=== PATIENT | female | born 1975 | race Caucasian/White ===

== ENCOUNTER 2019-07-03 10:49 | Outpatient (CLI) | payer MEDICARE, MEDICAID, SELFPAY ==
[2019-07-03 11:41] LABS: Basophils % 0.3 %; Eosinophils # 0.4 10^3/uL (0.0-0.8); Eosinophils % 4.8 %; Hematocrit 32.8 % (37.0-47.0); Hemoglobin 9.7 g/dL (11.5-15.3); Lymphocytes # 2.1 10^3/uL (0.8-4.8); Lymphocytes % 23.8 %; Mean Corpuscular HGB Conc 29.6 g/dL (30.0-36.0); Mean Corpuscular Hemoglobin 25.5 pg (28.0-34.0); Mean Corpuscular Volume 86.3 fL (81-99); Mean Platelet Volume 9.7 fL (7.4-10.4); Monocytes # 0.6 10^3/uL (0.2-0.9); Monocytes % 6.4 %; Neutrophils # 5.5 10^3/uL (1.8-7.7); Neutrophils % 64.1 %; Nucleated Red Blood Cells % 0 %; Platelet Count 298 10^3/cmm (130-400); White Blood Count 8.6 10^3/uL (4.0-10.0)
[2019-07-03 12:06] LABS: Estmated Average Glucose 151; Hemoglobin A1C 6.9 % (4.0-6.0)
[2019-07-03 12:51] LABS: Calcium 8.9 mg/dL (8.5-10.5); Parathyroid Hormone 115.5 pg/mL (15-65)
[2019-07-03 13:01] LABS: Folate Level 15.4 ng/mL (4.8-37.3)
[2019-07-03 13:05] LABS: Alanine Aminotransferase 62 U/L (0-33); Albumin Level 3.2 g/dL (3.5-5.2); Alkaline Phosphatase 140 IU/L (35-105); Aspartate Amino Transferase 75 U/L (0-32); Blood Urea Nitrogen 10 mg/dL (6-20); Calcium 8.8 mg/dL (8.5-10.5); Carbon Dioxide 23 mmol/L (22-29); Chloride 99 mmol/L (98-107); Chol HDL Ratio 3.41 mg/dL (0.0-4.40); Cholesterol 198 mg/dL (0-200); Globulin 3.1 g/dL (1.3-4.6); Glucose 124 mg/dL (65-115); HDL Cholesterol 58 mg/dL (60-100); Iron 30 ug/dL (37-145); LDL Cholesterol Calculated 79 mg/dL (50-129); LDL HDL Ratio 1.36 RATIO (0.00-3.22); Magnesium 1.8 mg/dL (1.7-2.3); Percent Saturation 9.4 % (20-50); Sodium 135 mmol/L (136-145); Thyroid Stimulating Hormone 1.88 uIU/mL (0.27-4.20); Total Bilirubin 0.2 mg/dL (0.15-1.2); Total Iron Binding Capacity 319 mcg/dl; Total Protein 6.3 g/dL (6.6-8.7); Triglycerides 304 mg/dL (0-150); Unsaturated Iron Binding 289 ug/dL (112-347); Vitamin B12 378 pg/mL (232-1245)
== END 2019-07-03 10:50 | disposition home or self-care (01) ==
PROVIDERS: Family Provider Nurse Practitioner; PCP Nurse Practitioner; Visit Provider Surgery
DX: E66.9 Obesity, unspecified (principal)
CPT/HCPCS: 36415; 80053; 80061; 82310; 82607; 82746; 83036; 83540; 83550; 83735; 83970; 84100; 84443; 85025

== ENCOUNTER → 2019-08-01 05:38 | Day surgery (SDC) | payer MEDICARE, MEDICAID, SELFPAY ==
[2019-07-28 10:33] VITALS: BMI 42.9
--- NOTE | 2019-07-28 10:51 | ANES.PREANE2 ---
Pre-Anesthetic Assessment Pre-Anesthetic Assessment: Height/Weight: Height 1.63 m Weight 113.398 kg Preop Diagnosis: Morbid obesity Proposed Procedure: Operation Date: 08/01/19 07:00 Proposed Procedures p Laparoscopic Gastric Sleeve w/ EGD 12738 [id number] E66.9(Not Applicable) - Sulaiman Sarabia MD s EGD(Not Applicable) - Sulaiman Sarabia MD Familial anesthetic complications: none Social: Social History: No alcohol and No tobacco Exam: Pre-Anes Outpt Exam: alert, oriented x 3, clear to auscultation bilaterally and regular rate & rhythm Airway: Cervical ROM: WNL MP: 2 Dentition: Full Pulmonary: Pulmonary: None reported CV/HEM: CV/HEM: Anemia and HTN : : None reported Hepatic: Hepatic: None reported GI: GI: GERD Metabolic: Metabolic: Morbid obesity Musc/skel: Musc/skel: Fibromyalgia and Lower Back Pain Neuropsych: Neuropsych: Seizure (2016 last one - not on antiseizure meds (due to bp drop)) Anesthetic Plan: ASA status: 3 Anesthesia: General Risk of > 500 ml blood loss (7ml/kg in children): No PFSH Anesthesia PFSH: Social History Smoking and tobacco status: never smoked Alcohol intake: former Lives independently: Yes Household members: children Current occupational status: disabled History of recent travel: No Data Anesthesia Cardiac Studies: No Data to Display
[2019-07-28 11:42] LABS: Basophils % 0.2 %; Eosinophils # 0.1 10^3/uL (0.0-0.8); Eosinophils % 1.2 %; Hematocrit 38.9 % (37.0-47.0); Hemoglobin 12.2 g/dL (11.5-15.3); Lymphocytes # 2.2 10^3/uL (0.8-4.8); Lymphocytes % 21.5 %; Mean Corpuscular HGB Conc 31.4 g/dL (30.0-36.0); Mean Corpuscular Hemoglobin 26.3 pg (28.0-34.0); Mean Platelet Volume 10.1 fL (7.4-10.4); Monocytes # 0.5 10^3/uL (0.2-0.9); Monocytes % 4.7 %; Neutrophils # 7.5 10^3/uL (1.8-7.7); Neutrophils % 71.8 %; Nucleated Red Blood Cells % 0 %; Platelet Count 366 10^3/cmm (130-400); Red Blood Count 4.63 10^6/uL (4.1-5.3); Red Cell Distribution Width 14.6 % (12.1-15.1); White Blood Count 10.4 10^3/uL (4.0-10.0)
[2019-07-28 11:43] LABS: Anion Gap 16.8 (5-19); Blood Urea Nitrogen 14 mg/dL (6-20); Calcium 9.2 mg/dL (8.5-10.5); Carbon Dioxide 25 mmol/L (22-29); Chloride 98 mmol/L (98-107); Glomerular Filtration Rate 77.9 mL/min (90-130); Glucose 122 mg/dL (65-115); Osmolality Calculated 280 mOsm/kg (285-295); Potassium 3.8 mmol/L (3.5-5.1); Sodium 136 mmol/L (136-145)
[2019-07-28 11:44] LABS: Iron 46 ug/dL (37-145)
[2019-08-01 06:01] VITALS: BP 103/68; PULSE 76; RESP 18; TEMP 36.6; O2SAT 94
[2019-08-01] MEDS: sodium chloride 0.9% 1,000 ML 999 ML IV (06:11)
[2019-08-01] MEDS: ondansetron 2 mg/ML SDV 2 mL 4 MG IVP (06:16)
[2019-08-01] MEDS: heparin 5,000 unit/mL INJ 1 mL 5000 UNIT INJECTION (06:18)
[2019-08-01] MEDS: scopolamine 1.5 Patch 1 PATCH TRANSDERMA (06:18)
--- NOTE | 2019-08-01 06:41 | W.PM.OPSUD ---
Surgery/Procedure H&P Update DATE OF PROCEDURE: August 01, 2019 DATE H&P PERFORMED: 07/03/19 H&P UPDATE INFORMATION: I have reviewed H&P completed within last 30 days, I have examined patient prior to procedure and Changes to prior documentation as noted here (Unfortunately patient comes today and she admits that she lost 2 pounds only being on liquid protein diet and my impression that she was on liquid protein diet for 2-weeks, apparently she admits that she has been receiving the liquid protein diet only for the past 3 days and that the main purpose to downsize the volume of the liver to 30 or 40% prior to surgery to facilitate her procedure and make it safer for the patient) CHANGES TO PREVIOUS DOCUMENTATION: At this point I will have to abort the procedure and I will continue have my reconciliation coordinator counseling the patient, make sure that the patient is compliant with the liquid protein diet 10 days to start 2 weeks prior to surgery. Discussed in depth and in length and more than 50% of the encounter was spent counseling the patient in the presence of my nursing director of staff development Gricel We will continue coordinating with patient's primary care provider and make sure that the patient continue to have her obesity management journey safe and successful. PREOP DIAGNOSIS: Morbid obesity PLANNED PROCEDURE: Operation Date: 08/01/19 07:00 Proposed Procedures p Laparoscopic Gastric Sleeve w/ EGD [id number] E66.9(Not Applicable) - Sulaiman Sarabia MD s EGD(Not Applicable) - Sulaiman Sarabia MD
[2019-08-01 07:29] LABS: Glucose Point of Care 145 mg/dL (70-110)
--- NOTE | 2019-08-01 10:37 | SUR.PREOP ---
0700 PT'S IV D/VINH ALL INTACT AND WAITING FOR BOYFRIEND TO BE PICKED UP 0725 D/C PER ER ENTRANCE VIA W/C IN STABLE CONDITION
== END ==
PROVIDERS: Internal Medicine; Family Provider Nurse Practitioner; PCP Nurse Practitioner; Visit Provider Surgery
PROC: 0DB64Z3 Excision of Stomach, Percutaneous Endoscopic Approach, Vertical (ICD-10-PCS; CPT 43775; principal; 2019-08-01 07:00)
PROC: 0DJ08ZZ Inspection of Upper Intestinal Tract, Via Natural or Artificial Opening Endoscopic (ICD-10-PCS; CPT 43235; 2019-08-01 07:00)
DX: Z01.818 Encounter for other preprocedural examination (principal); E66.9 Obesity, unspecified; Z68.41 Body mass index [BMI] 40.0-44.9, adult; D64.9 Anemia, unspecified
CPT/HCPCS: 12345; 36415; 36416; 80048; 82962; 83540; 85025; 96365; 96372; 96374; J0131; J1644; J2405; J7030

== ENCOUNTER 2019-08-04 14:54 | Inpatient (IN) | payer MEDICARE, MEDICAID, SELFPAY ==
[2019-08-04] VITALS (40 sets, daily range): BP systolic 142–176; BP diastolic 11–106; PULSE 66–104; RESP 15–30; TEMP 36.5–36.8; O2SAT 95–98; BMI 42.7
--- NOTE | 2019-08-04 15:12 | XR_ITS ---
WS: [id number] XR chest 1V portable [id number] REASON FOR EXAM: cp FINDINGS: Borderline cardiomegaly changes. Lung little are clear there is no pneumonia, pleural effus ion, pulmonary edema, mass effect, or pneumothorax. The hilum and apices normal. No osseous abnormalities. XR/XR chest 1V portable [id number] IMPRESSION: Borderline cardiomegaly.
--- NOTE | 2019-08-04 15:12 | CT_ITS ---
WS: [id number] CT HEAD TECHNIQUE: Noncontrast CT of the head obtained from the skullbase to the vertex. CLINICAL INFORMATION: ams COMPARISON: March 04, 2019 DLP: 804.[address] scans at [facility] use at least one of these dose optimization techniques: automat ed exposure control; mA and/or kV adjustment per patient size (includes targeted exams where dose is matched to clinical indication); or iterative reconstruction. FINDINGS: No evidence of intracranial hemorrhage or mass effect. Ventricular system and basal cisterns are joseph nt. No extra-axial fluid collections. No evidence of mass or mass effect. Normal fuller-white different iation. Paranasal sinuses and mastoid air cells are well aerated. .Normal visualized soft tissues. CT/CT head wo con* [id number] IMPRESSION: 1. No evidence of intracranial hemorrhage or mass effect. 2. No acute intracranial findings.
--- NOTE | 2019-08-04 15:20 | W.ED.AMS ---
HPI - Altered Mental Status General: Chief Complaint: Altered Mental Status Stated Complaint: AMS Time Seen by Provider: 08/04/19 15:07 Source: patient Mode of arrival: ambulatory Limitations: no limitations History of Present Illness: HPI narrative: 43-year-old female who states that she has been having chronic weakness over the last month or 2. Patient also states she has had headaches along with joint pain. She does have chronic pain and is on multiple pain meds. She states that the weakness seems to come and go and has periods where she has difficulty walking and difficulty holding things. Patient denies any worsening improving factors. She denies any fevers. She denies any cough. She denies any vomiting or diarrhea. Associated symptoms: Deny depression Review of Systems Const: Denies: fever, chills, body aches or change in appetite Eyes: Reports: blurry vision; Denies: eye discomfort ENMT: Denies: throat pain or dental pain Card: Denies: chest pain Resp: Denies: shortness of breath GI: Denies: abdominal pain, nausea, vomiting or diarrhea : Denies: painful urination Musc: Reports: joint pain; Denies: neck pain or back pain Skin/Breast: Denies: rash Neuro: Reports: headache and weakness in extremities Psych: Denies: depression Bonifacio/Lymph: Denies: easy bruising All/Imm: Denies: hives PFSH ED PFSH: Medical History (Updated 08/07/19 @ 08:17 by Michell Oates MD) Bipolar disorder Bipolar disorder, current episode depressed, moderate Generalized anxiety disorder GERD (gastroesophageal reflux disease) Hypertension Migraine headache Morbid obesity -BMI-43 kg/m2 -pending gastric sleeve surgery, to be done by Dr. Rodriguez PTSD (post-traumatic stress disorder) Sleep apnea Surgical History (Updated 08/04/19 @ 18:17 by Michell Oates MD) History of cholecystectomy in 2013 History of colonoscopy History of esophagogastroduodenoscopy (EGD) History of hysterectomy 2012, done due to endometriosis Family History Mother Anesthesia complication Denies family history of Bleeding disorder Social History Smoking and tobacco status: never smoked Alcohol intake: former Lives independently: Yes Household members: children Current occupational status: disabled History of recent travel: No Physical Exam Const: COMMON NORMALS: no apparent distress, oriented x3 and healthy appearing HENMT: COMMON NORMALS: normocephalic and head/scalp atraumatic HEAD & SCALP: normocephalic and atraumatic Eye: COMMON NORMALS: PERRL and EOMs intact bilaterally PUPIL: Yes PERRL Neck/C-Spine: COMMON NORMALS: full ROM and supple Chest: COMMONS NORMALS: inspection of chest normal and palpation of chest normal Resp: COMMON NORMALS: normal respiratory effort, no retractions, no use of accessory muscles and clear to auscultation bilaterally AUSCULTATION: clear to auscultation bilaterally Cardio: COMMON NORMALS: regular rate, regular rhythm and no murmurs RATE: regular rate RHYTHM: regular rhythm GI: COMMON NORMALS: normal to inspection, nondistended, normoactive bowel sounds, soft to palpation, non-tender and no masses PALPATION: Yes soft Extremity: COMMON NORMALS: normal to inspection and full ROM Neuro: COMMON NORMALS: oriented x3, moves all extremities and no focal motor deficits Psych: COMMON NORMALS: mental status grossly normal, thought process normal and cooperative THOUGHT PROCESS: normal thought process Skin: COMMON NORMALS: no rashes or lesions noted and no wounds GENERAL SKIN EXAM: no rashes or lesions noted Course Vital Signs: Vital signs: Vital Signs Temperature 98.0 F 08/07/19 13:38 Pulse Rate 89 08/07/19 13:38 Respiratory Rate 16 08/07/19 13:38 Blood Pressure 127/83 08/07/19 13:38 Pulse Oximetry 93 08/07/19 13:38 MDM - Altered Mental Status MDM Narrative: Medical decision making narrative: Patient presents here with difficulty walking and weakness along with high blood pressure. Questions that she has been taking too many of her medicines per family. Patient's lab work and CT head here is normal. Did try to get her to walk again and she was unable to. Spoke to hospitalist and will admit due to her difficulty walking and high blood pressure. Lab Data: Labs: Lab Results 08/04/19 08/04/19 08/04/19 Range/Units 15:17 15:17 15:17 WBC 7.8 (4.0-10.0) 10^3/ uL RBC 3.98 L (4.1-5.3) 10^6/u L Hgb 10.4 L (11.5-15.3) g/dL Hct 34.2 L (37.0-47.0) % MCV 85.9 (81-99) fL MCH 26.1 L (28.0-34.0) pg MCHC 30.4 (30.0-36.0) g/dL RDW 14.3 (12.1-15.1) % Plt Count 270 (130-400) 10^3/c mm MPV 10.6 H (7.4-10.4) fL Neut % (Auto) 68.7 % Lymph % (Auto) 21.7 % Wharton % (Auto) 5.9 % Eos % (Auto) 3.0 % Baso % (Auto) 0.1 % Neut # (Auto) 5.3 (1.8-7.7) 10^3/u L Lymph # (Auto) 1.7 (0.8-4.8) 10^3/u L Wharton # (Auto) 0.5 (0.2-0.9) 10^3/u L Eos # (Auto) 0.2 (0.0-0.8) 10^3/u L Baso # (Auto) 0.0 (0.0-0.1) 10^3/u L Nucleated RBC % (a uto) 0 % Nucleated RBCs # 0.0 /100WBC Sodium 138 (136-145) mmol/L Potassium 3.8 (3.5-5.1) mmol/L Chloride 100 (98-107) mmol/L Carbon Dioxide 30 H (22-29) mmol/L Anion Gap 11.8 (5-19) BUN 10 (6-20) mg/dL Creatinine 1.0 H (0.5-0.9) mg/dL GFR Calculation 60.2 L (90-130) mL/min Glucose 222 H (65-115) mg/dL Calculated Osmolal ity 289 (285-295) mOsm/k g Calcium 9.1 (8.5-10.5) mg/dL Magnesium 2.0 (1.7-2.3) mg/dL Total Bilirubin 0.2 (0.15-1.2) mg/dL AST 20 (0-32) U/L ALT 20 (0-33) U/L Alkaline Phosphata se 131 H (35-105) IU/L Total Protein 6.8 (6.6-8.7) g/dL Albumin 3.4 L (3.5-5.2) g/dL Globulin 3.4 (1.3-4.6) g/dL TSH 1.08 (0.27-4.20) uIU/ mL HCG, Qual (Negative) Urine Color (Yellow) Urine Appearance (CLEAR) Urine pH (5-7) Ur Specific Gravit y (1.005-1.030) Urine Protein (Negative) Urine Glucose (UA) (Normal) Urine Ketones (Negative) Urine Blood (Negative) Urine Nitrate (Negative) Urine Bilirubin (NEGATIVE) Urine Urobilinogen (Negative) mg/dL Ur Leukocyte Tiffany ase (Negative) Urine Opiates Scre en (Negative) ng/mL Acetaminophen < 5.0 L (10-30) ug/mL Ur Barbiturates Sc reen (Negative) ng/mL Ur Phencyclidine S crn (Negative) ng/mL Ur Amphetamines Sc reen (Negative) ng/mL U Benzodiazepines Scrn (Negative) ng/mL Urine Cocaine Scre en (Negative) ng/mL U Marijuana (THC) Screen (Negative) ng/mL 08/04/19 08/04/19 08/04/19 Range/Units 15:47 15:47 15:47 WBC (4.0-10.0) 10^3/ uL RBC (4.1-5.3) 10^6/u L Hgb (11.5-15.3) g/dL Hct (37.0-47.0) % MCV (81-99) fL MCH (28.0-34.0) pg MCHC (30.0-36.0) g/dL RDW (12.1-15.1) % Plt Count (130-400) 10^3/c mm MPV (7.4-10.4) fL Neut % (Auto) % Lymph % (Auto) % Wharton % (Auto) % Eos % (Auto) % Baso % (Auto) % Neut # (Auto) (1.8-7.7) 10^3/u L Lymph # (Auto) (0.8-4.8) 10^3/u L Wharton # (Auto) (0.2-0.9) 10^3/u L Eos # (Auto) (0.0-0.8) 10^3/u L Baso # (Auto) (0.0-0.1) 10^3/u L Nucleated RBC % (a uto) % Nucleated RBCs # /100WBC Sodium (136-145) mmol/L Potassium (3.5-5.1) mmol/L Chloride (98-107) mmol/L Carbon Dioxide (22-29) mmol/L Anion Gap (5-19) BUN (6-20) mg/dL Creatinine (0.5-0.9) mg/dL GFR Calculation (90-130) mL/min Glucose (65-115) mg/dL Calculated Osmolal ity (285-295) mOsm/k g Calcium (8.5-10.5) mg/dL Magnesium (1.7-2.3) mg/dL Total Bilirubin (0.15-1.2) mg/dL AST (0-32) U/L ALT (0-33) U/L Alkaline Phosphata se (35-105) IU/L Total Protein (6.6-8.7) g/dL Albumin (3.5-5.2) g/dL Globulin (1.3-4.6) g/dL TSH (0.27-4.20) uIU/ mL HCG, Qual Negative (Negative) Urine Color Yellow (Yellow) Urine Appearance Clear (CLEAR) Urine pH 5 (5-7) Ur Specific Gravit y 1.010 (1.005-1.030) Urine Protein Neg (Negative) Urine Glucose (UA) Trace H (Normal) Urine Ketones Negative (Negative) Urine Blood Neg (Negative) Urine Nitrate Negative (Negative) Urine Bilirubin Neg (NEGATIVE) Urine Urobilinogen Norm (Negative) mg/dL Ur Leukocyte Tiffany ase Negative (Negative) Urine Opiates Scre en Negative (Negative) ng/mL Acetaminophen (10-30) ug/mL Ur Barbiturates Sc reen Negative (Negative) ng/mL Ur Phencyclidine S crn Negative (Negative) ng/mL Ur Amphetamines Sc reen Negative (Negative) ng/mL U Benzodiazepines Scrn Positive H (Negative) ng/mL Urine Cocaine Scre en Negative (Negative) ng/mL U Marijuana (THC) Screen Negative (Negative) ng/mL Imaging Data^: CT Head: Attestation: I personally reviewed and interpreted this imaging study as follows: Radiologist's impression: [facility] [address] [place] [address] CT Scan Report Signed Patient: Abena Galan Unit #: [id number] : 1975 Age/Sex: 43 / F ADM Date: 08/04/19 Loc: ER Room/Bed: Attending Dr: Ordering Provider/Ordering MD: Stephany Herrera MD Date of Service: 08/04/19 Procedure(s): CT head wo con* [id number] Accession Number(s): [id number] Report Number: [id number] WS: [id number] CT HEAD TECHNIQUE: Noncontrast CT of the head obtained from the skullbase to the vertex. CLINICAL INFORMATION: ams COMPARISON: March 04, 2019 DLP: 804.[address] scans at [facility] use at least one of these dose optimization techniques: automated exposure control; mA and/or kV adjustment per patient size (includes targeted exams where dose is matched to clinical indication); or iterative reconstruction. FINDINGS: No evidence of intracranial hemorrhage or mass effect. Ventricular system and basal cisterns are patent. No extra-axial fluid collections. No evidence of mass or mass effect. Normal fuller-white differentiation. Paranasal sinuses and mastoid air cells are well aerated. .Normal visualized soft tissues. CT/CT head wo con* [id number] IMPRESSION: 1. No evidence of intracranial hemorrhage or mass effect. 2. No acute intracranial findings. CXR: Rad[facility]'s [facility] [place] [address] XRay Report Signed Patient: Abena Galan Unit #: [id number] : 1975 Age/Sex: 43 / F ADM Date: 08/04/19 Loc: ER Room/Bed: Attending Dr: Ordering Provider/Ordering MD: Stephany Herrera MD Date of Service: 08/04/19 Procedure(s): XR chest 1V portable [id number] Accession Number(s): [id number] Report Number: [id number] WS: [id number] XR chest 1V portable [id number] REASON FOR EXAM: cp FINDINGS: Borderline cardiomegaly changes. Lung little are clear there is no pneumonia, pleural effusion, pulmonary edema, mass effect, or pneumothorax. The hilum and apices normal. No osseous abnormalities. XR/XR chest 1V portable [id number] IMPRESSION: Borderline cardiomegaly. EKG Data^: EKG 1: Attestation: I personally reviewed and interpreted this EKG as follows: EKG interpretation date: 08/04/19 EKG interpretation time: 17:13 Interpretation: nsr hr [address] or t wave abnormalities qrs 85 qtc 424 Discharge Plan Discharge Patient Disposition: Admitted As Inpatient Admit Provider: Michell Oates Clinical Impression: Altered mental status Qualifiers: Altered mental status type: unspecified Qualified Code(s): R41.82 - Altered mental status, unspecified Hypertension Qualifiers: Hypertension type: essential hypertension Qualified Code(s): I10 - Essential (primary) hypertension Condition: Stable Discharge Orders: Discharge Order (Routine); Ordered 08/07/19 Ordered By: Michell Oates Referrals: Lianet De Jesus DPM [Primary Care Provider] - 4-7 days (You have an follow-up appointment with Lianet De Jesus on August 10 at :20p.m. If, you have any questions or need to reschedule. Please, call ) Discharge Diet: Advance as tolerated Discharge Activity: Resume usual activity and As per PT/OT instructions Patient Instructions: Ondansetron (By mouth), Hypertension (DC), Altered Mental Status (GEN), Weakness (Generalized) Additional Instructions: -continue to consistently use walker and assistance with activity to prevent falls. -please seek medical attention immediately if symptoms worsen or persist. Discharge Date/Time: 08/04/19 18:54 Coding Level of Care Code ED Manager Of Digital for Chg Fwd Exam Comprehensive
[2019-08-04 15:29] LABS: Basophils % 0.1 %; Eosinophils # 0.2 10^3/uL (0.0-0.8); Hematocrit 34.2 % (37.0-47.0); Hemoglobin 10.4 g/dL (11.5-15.3); Lymphocytes # 1.7 10^3/uL (0.8-4.8); Lymphocytes % 21.7 %; Mean Corpuscular HGB Conc 30.4 g/dL (30.0-36.0); Mean Corpuscular Hemoglobin 26.1 pg (28.0-34.0); Mean Corpuscular Volume 85.9 fL (81-99); Mean Platelet Volume 10.6 fL (7.4-10.4); Monocytes # 0.5 10^3/uL (0.2-0.9); Monocytes % 5.9 %; Neutrophils # 5.3 10^3/uL (1.8-7.7); Neutrophils % 68.7 %; Nucleated Red Blood Cells % 0 %; Platelet Count 270 10^3/cmm (130-400); Red Blood Count 3.98 10^6/uL (4.1-5.3); Red Cell Distribution Width 14.3 % (12.1-15.1); White Blood Count 7.8 10^3/uL (4.0-10.0)
[2019-08-04 15:54] LABS: Alanine Aminotransferase 20 U/L (0-33); Albumin Level 3.4 g/dL (3.5-5.2); Alkaline Phosphatase 131 IU/L (35-105); Anion Gap 11.8 (5-19); Aspartate Amino Transferase 20 U/L (0-32); Blood Urea Nitrogen 10 mg/dL (6-20); Calcium 9.1 mg/dL (8.5-10.5); Carbon Dioxide 30 mmol/L (22-29); Chloride 100 mmol/L (98-107); Globulin 3.4 g/dL (1.3-4.6); Glomerular Filtration Rate 60.2 mL/min (90-130); Glucose 222 mg/dL (65-115); Osmolality Calculated 289 mOsm/kg (285-295); Potassium 3.8 mmol/L (3.5-5.1); Sodium 138 mmol/L (136-145); Thyroid Stimulating Hormone 1.08 uIU/mL (0.27-4.20); Total Bilirubin 0.2 mg/dL (0.15-1.2); Total Protein 6.8 g/dL (6.6-8.7)
[2019-08-04 16:06] LABS: Add Urine Microscopic? NO
--- NOTE | 2019-08-04 16:20 | ECG_ITS ---
Measurements Intervals [place] Rate: 80 P: 48 LA: 145 QRS: 50 QRSD: 85 T: 16 QT: 388 QTc: 450 SINUS RHYTHM Compared to ECG 03/02/2019 07:40:55 Sinus tachycardia no longer present T-wave abnormality no longer present Electronically Signed On 08-05-2019 8:03:38 CDT by Mitchell Santiago [email or web address]
[2019-08-04] MEDS: sodium chloride 0.9% 1,000 ML 999 ML IV (16:26)
[2019-08-04 16:36] LABS: Bilirubin Urine Neg (NEGATIVE); Blood Urine Neg (Negative); Glucose Urine UA Trace (Normal); HCG Qualitative Urine. Negative (Negative); Ketones Urine Negative (Negative); Leukocyte Esterase Urine Negative (Negative); Nitrate Urine Negative (Negative); Protein Urine Neg (Negative); Urine Appearance Clear (CLEAR); Urine Color Yellow (Yellow); Urobilinogen Urine Norm (Negative); pH Urine 5 (5-7)
[2019-08-04 17:05] LABS: Acetaminophen < 5.0 ug/mL (10-30)
--- NOTE | 2019-08-04 17:25 | CTR_ITS ---
PROCEDURE INFORMATION: Exam: CT Angiography Head With Contrast Exam date and time: 08/04/2019 5:26 PM Age: 43 years old Clinical indication: Pain; Weakness; Headache TECHNIQUE: Imaging protocol: Computed tomography angiography of the head with intravenous contrast. 3D rendering: MIP and/or 3D reconstructed images were created by the technologist. Total DLP: 2241.34 mGy-cm Radiation optimization: All CT scans at this facility use at least one of these dose optimization techniques: automated exposure control; mA and/or kV adjustment per patient size (includes targeted exams where dose is matched to clinical indication); or iterative reconstruction. Contrast material: OMNI 350; Contrast volume: 95 ml; Contrast route: IV; COMPARISON: CT head wo con* [id number] 08/04/2019 3:33 PM FINDINGS: Right internal carotid artery: Intracranial segment is patent with no significant stenosis or occlusion. No aneurysm. Right anterior cerebral artery: No occlusion or significant stenosis. No aneurysm. Right middle cerebral artery: No occlusion or significant stenosis. No aneurysm. Right posterior cerebral artery: No occlusion or significant stenosis. No aneurysm. Right vertebral artery: No occlusion or significant stenosis. No aneurysm. Left internal carotid artery: Intracranial segment is patent with no significant stenosis or occlusion. No aneurysm. Left anterior cerebral artery: No occlusion or significant stenosis. No aneurysm. Left middle cerebral artery: No occlusion or significant stenosis. No aneurysm. Left posterior cerebral artery: No occlusion or significant stenosis. No aneurysm. Left vertebral artery: No occlusion or significant stenosis. No aneurysm. Basilar artery: No occlusion or significant stenosis. No aneurysm. Other vasculature: origin of the posterior cerebral artery bilaterally. IMPRESSION: No visible atheromatous disease, stricture, stenosis, aneurysm, dissection, intimal flap, or evidence of occlusive disease. PROCEDURE INFORMATION: Exam: CT Angiography Neck With Contrast Exam date and time: 08/04/2019 5:26 PM Age: 43 years old Clinical indication: Pain; Weakness; Headache TECHNIQUE: Imaging protocol: Computed tomography angiography of the neck with intravenous contrast. 3D rendering: MIP and/or 3D reconstructed images were created by the technologist. Total DLP: 2241.34 mGy-cm Radiation optimization: All CT scans at this facility use at least one of these dose optimization techniques: automated exposure control; mA and/or kV adjustment per patient size (includes targeted exams where dose is matched to clinical indication); or iterative reconstruction. Contrast material: OMNI 350; Contrast volume: 95 ml; Contrast route: IV; COMPARISON: CT head wo con* [id number] 08/04/2019 3:33 PM FINDINGS: VASCULATURE: Right common carotid artery: No stenosis. No dissection or occlusion. Right internal carotid artery: No stenosis of the extracranial segment. No dissection or occlusion. Right external carotid artery: No occlusion or stenosis of the origin. Right vertebral artery: No stenosis. No dissection or occlusion. Left common carotid artery: No stenosis. No dissection or occlusion. Left internal carotid artery: No stenosis of the extracranial segment. No dissection or occlusion. Left external carotid artery: No occlusion or stenosis of the origin. Left vertebral artery: No stenosis. No dissection or occlusion. NECK: Sinuses: Paranasal sinuses without evidence for active disease. No evidence for mastoiditis. Bones/joints: Mild reversal normal cervical lordosis. No visible active musculoskeletal pathology within the field of view. Soft tissues: Normal. No significant soft tissue swelling. Lungs: Incidental note of bilateral small pleural effusions. Motion artifact limits assessment of the lung apices. Potential mild interstitial edema. CT/CT angio headneck* [id number] IMPRESSION: 1. No visible atheromatous disease, stenosis, intimal flap, dissection, or occlusive disease. 2. Incidental note of bilateral small pleural effusions. 3. Potential mild interstitial edema. COMMENTS: Using NASCET method for measuring degree of carotid artery stenosis: Mild is less than 50% stenosis. Moderate is 50-69% stenosis. Severe is 70-94% stenosis. Near occlusion is 95-99% stenosis. Radiation Dose CTDIVOL = (mGy): DLP = 2241.34~2241.34 (mGy-cm)
[2019-08-04] MEDS: labetalol 5 mg/mL SDV 20mL 10 MG IVP (17:59)
[2019-08-04] MEDS: cloNIDine 0.1 mg Tablet PO (18:00)
[2019-08-04] MEDS: acetaminophen 325 mg Tablet 650 MG PO (18:02)
--- NOTE | 2019-08-04 18:08 | P.HP_ITS ---
Providers/Chief Complaint Admitting Physician: Michell Oates MD Primary Care Provider: CARITO Lyons Chief Complaint: AMS History of Present Illness Abena Galan is a 43 year old female with PMHx of Chronic diastolic CHF, HALINA, Morbid obesity, Chronic low back pain (on opiates), HTN, Hyperlipidemia, Anxiety/bipolar depression/PTSD, presents to ED for evaluation of increased generalized weakness, particularly in her bilateral lower extremities and following a fall at home with episode of urinary incontinence earlier today. Reports trying to get up and feeling quite weak and shaky all over and while trying to ambulate felt her legs give out on her and ended up falling and hitting her head at the edge of her the door, she had a brief period of disorientation but denies any loss of consciousness. She was unable to get back up on her own so family members assisted her to a chair and called for an ambulance. She states that she has been feeling unwell with abdominal cramping, nausea/vomiting, diarrhea for the past several days, attributed her symptoms to some kind of stomach bug, none of her family members at home have had similar symptoms. Because of feeling unwell she has not been taking her regular medications including her blood pressure and pain meds. Reportedly family was concerned that patient has been taking more than her prescribed medications and have been withholding her hydrocodone. They are not present at bedside during my assessment in the ER so I am unable to get further information or details on this. She follows up with our Dr. Baeza for pain management and to [facility] for her history of bipolar depression and anxiety. She is on multiple anxiolytics, antidepressants, analgesics and opiates per her medication list. She has been following up with Dr. Sarabia and is pending gastric sleeve surgery for her history of morbid obesity. Attempts to get the patient up and ambulatory in the ER were unsuccessful. She is quite uncomfortable on the stretcher during my evaluation secondary to lower back pain. She is requesting pain medication, preferably IV as she has nausea. She is quite hypertensive with the most recent blood pressure being 162/106. She will be receiving a dose of clonidine 0.1 mg orally and labetalol 10 mg IV. She is alert and oriented and able to provide her own history, collateral information obtained from review of medical record. Labs indicate anemia with a hemoglobin of 10.4, normal chemistry other than blood sugar of 222, urinalysis that is positive for glucose, Tylenol screen was negative, chest x-ray and CT head are both unremarkable for any acute findings. She is pending a CTA of the head secondary to reported history of an aneurysm. I will also order a CT scan of her lumbar spine as she had increased generalized weakness, noted paresthesia and an episode of urinary incontinence. She has been admitted for further blood pressure control, management of generalized weakness. Review of Systems Const: Reports: change in appetite (decreased appetite), fatigue and malaise; Denies: fever or chills Eyes: Denies: change in vision ENMT: Reports: dry mouth Card: Denies: chest pain, swelling of feet/ankles or lightheadedness Resp: Denies: shortness of breath, productive cough or non-productive cough GI: Reports: abdominal pain, nausea, vomiting, vomiting blood and other (alternates between diarrhea and constipation); Denies: blood in stool : Reports: urinary incontinence (1 episode earlier today); Denies: difficulty urinating, painful urination or urinary frequency Musc: Reports: back pain (chronic, lower back) Skin/Breast: Denies: rash Neuro: Reports: headache (chronic), numbness in extremities (bilateral LEs), weakness in extremities, difficulty walking and other (episode of disorientation after fall; + head trauma) Psych: Denies: anxiety Medications/Allergies Home Medications Medication Instructions Recorded Confirmed Last Taken Type clonidine HCl 0.2 mg PO BID 08/04/19 08/04/19 Unknown History lisinopril 30 mg PO DAILY 08/04/19 08/04/19 Unknown History metoprolol tartrate 100 mg PO TID 08/04/19 08/04/19 Unknown History oxycodone [OxyContin] 30 mg PO BID 08/04/19 08/04/19 Unknown History Allergies Allergy/AdvReac Type Severity Reaction Status Date / Time erythromycin base Allergy ALGY-Hives Verified 08/01/19 05:50 ketorolac [From Toradol] Allergy ALGY-Rash Verified 08/01/19 05:50 codeine AdvReac ADR-Itching Verified 08/01/19 05:50 PFSH Acute PFSH: Medical History (Updated 08/04/19 @ 18:27 by Michell Oates MD) Bipolar disorder Bipolar disorder, current episode depressed, moderate Generalized anxiety disorder GERD (gastroesophageal reflux disease) Hypertension Migraine headache Morbid obesity PTSD (post-traumatic stress disorder) Sleep apnea Surgical History (Updated 08/04/19 @ 18:17 by Michell Oates MD) History of cholecystectomy in 2012 History of colonoscopy History of esophagogastroduodenoscopy (EGD) History of hysterectomy 2012, done due to endometriosis Family History Mother Anesthesia complication Denies family history of Bleeding disorder Social History Smoking and tobacco status: never smoked Alcohol intake: former Lives independently: Yes Household members: children Current occupational status: disabled History of recent travel: No Vitals/I&O/Wt Last Vital Signs Temp 97.7 F 08/04/19 15:03 Pulse 93 08/04/19 15:03 Resp 18 08/04/19 15:03 BP 162/106 08/04/19 15:03 Pulse Ox 98 08/04/19 15:22 Weight last 48 hrs Weight 112.945 kg Physical Exam Const: COMMON NORMALS: no apparent distress and oriented x3 GENERAL APPEARANCE: cooperative and comfortable ORIENTATION/CONSCIOUSNESS: Yes awake HENMT: COMMON NORMALS: normocephalic, head/scalp atraumatic, hearing grossly normal bilaterally and moist oral mucous membranes HEAD & SCALP: normocephalic and atraumatic Eye: COMMON NORMALS: PERRL, EOMs intact bilaterally and conjunctivae normal CONJUNCTIVA: Yes conjunctivae normal PUPIL: Yes PERRL Neck/C-Spine: COMMON NORMALS: full ROM GENERAL: Yes normal visual inspection and Yes trachea midline Resp: COMMON NORMALS: normal respiratory effort, no retractions, no use of accessory muscles and clear to auscultation bilaterally EFFORT & INSPECTION: Yes able to speak in complete sentences, Yes symmetric chest movement and No tachypneic AUSCULTATION: clear to auscultation bilaterally Cardio: COMMON NORMALS: regular rate, regular rhythm, S1 normal heart sound, S2 normal heart sound and no murmurs RATE: regular rate RHYTHM: regular rhythm HEART SOUNDS: S1 normal and S2 normal GI: COMMON NORMALS: normal to inspection, nondistended, normoactive bowel sounds, soft to palpation and non-tender PALPATION: Yes soft Extremity: COMMON NORMALS: normal to inspection, full ROM and no clubbing, cyanosis or edema; negative for no pedal edema Neuro: COMMON NORMALS: oriented x3, moves all extremities, no focal motor deficits, no sensory deficits noted and gait normal Psych: COMMON NORMALS: mental status grossly normal, thought process normal, cooperative, affect normal and speech normal SPEECH: Yes normal speech THOUGHT PROCESS: normal thought process Skin: COMMON NORMALS: no rashes or lesions noted, no jaundice, no petechiae and no mottling GENERAL SKIN EXAM: no rashes or lesions noted Data : 08/04/19 15:17 08/04/19 15:17 A&P Assessment and plan (1) Generalized weakness: -patient had episode of generalized weakness, increased LE weakness and subsequent fall with + head trauma but no LOC, +urinary incontinence, has felt shaky since then and had difficulty ambulating -at baseline deals with chronic lower back pain and radiculopathy; intermittently ambulates with walker -fall precautions -reports hx of fibromyalgia, DJD; is on chronic opiates, f/u with Dr. Baeza (pain management). Per report received from ED, some concern from family about patient taking more than prescribed meds, have taken away hydrocodone from her -pain control as needed with close monitoring of neuro, hemodynamic, respiratory status -does not seem consistent with seizure-like activity, no reported hx of seizure episodes -given hx of chronic lower back pain, urinary incontinence and difficulty with ambulation, will order CT L-spine. Had prior CT L-spine done in 10/2017 which showed mild lower lumbar facet spondylosis -PT/OT evaluations in AM -check A1c, folate, vitamin B12, TSH due to reported paresthesias Status: Acute Code(s): R53.1 - Weakness (2) Hypertension: -has known hx of HTN, quite hypertensive currently in ED -suspect this is due to not taking her meds for a few days which include clonidine, element of rebound hypertension and possible withdrawal from opiates -given dose of Labetalol 10 mg IV and Clonidine 0.1 mg -resume oral antihypertensive regimen -monitor vital signs Status: Chronic Qualifiers: Hypertension type: essential hypertension Qualified Code(s): I10 - Essential (primary) hypertension Code(s): I10 - Essential (primary) hypertension (3) Morbid obesity: -BMI-43 kg/m2 -pending gastric sleeve surgery, to be done by Dr. Rodriguez Status: Chronic Code(s): E66.01 - Morbid (severe) obesity due to excess calories Additional A&P Information -PTSD, Bipolar depression, Anxiety; resume meds, monitor mental status, hemodynamic and respiratory status -migraine headaches; resume topiramate -chronic LE edema, resume lasix -Hyperlipidemia; resume statin -noted hyperglycemia and glucosuria; check A1c -GERD; resume PPI -HALINA on CPAP qhs -has documented hx of hypothyroidism; no levothyroxine on med rec, check TSH -hx of irritable bowel syndrome; alternates between constipation and diarrhea -Chronic diastolic CHF; last Echo (08/2018): EF=65-70%, G1DD, mild pulmonary HTN (31), trace to mild TR -Chronic normocytic anemia; baseline Hg 9-11 -CKD stage 2-3; baseline Cr around 1 -GI ppx with PPI -DVT ppx with Lovenox; cannot tolerate SCDs due to pain -Dispo: home -Code status: FULL code Attestations Medical Necessity Statement*: Abena Galan's hospital stay will require greater than 2 midnights for management of generalized weakness with difficulty with ambulation as well as hypertensive urgency. Time Spent in Patient Care: Greater than 35 minutes (>than 50% of time spent in counselling and/or direct pt care on unit) . Coding Level of Care Code Acute Motor Rebuilder for Chg Fwd Diagnoses Generalized weakness R53.1 Hypertension I10 Hypertension type: essential hypertension Morbid obesity E66.01
--- NOTE | 2019-08-04 18:08 | CTR_ITS ---
PROCEDURE INFORMATION: Exam: CT Lumbar Spine Without Contrast Exam date and time: 08/04/2019 6:09 PM Age: 43 years old Clinical indication: Injury or trauma; Initial encounter; Blunt trauma (contusions or hematomas); Patient HX: Urinary incontinence, fall; Additional info: Urinary incontinence, fall, bilateral le weakness TECHNIQUE: Imaging protocol: Computed tomography images of the lumbar spine without contrast. Total DLP: 2382.33 mGy-cm Radiation optimization: All CT scans at this facility use at least one of these dose optimization techniques: automated exposure control; mA and/or kV adjustment per patient size (includes targeted exams where dose is matched to clinical indication); or iterative reconstruction. COMPARISON: [place] [id number] 10/21/2017 10:10 PM FINDINGS: Vertebrae: No visible fracture, subluxation, or dislocation. Advanced facet arthrosis L5/S1. Mild facet arthrosis L4/L5. No visible traumatic spondylolysis or spondylolisthesis. Discs/Spinal canal/Neural foramina: No visible traumatic herniated nucleus pulposis or significant posterior disc bulge. Intervertebral disc space heights preserved. No visible central canal stenosis. Soft tissues: No paraspinal muscle atrophy identified. No visible retroperitoneal pathology within the field of view. Other findings: Patient obesity results in increased quantum mottle artifact which degrades image quality in detail assessment. CT/CT lumbar spine wo con* [id number] IMPRESSION: 1. No visible lumbosacral spine trauma. 2. Advanced facet arthrosis L5/S1. Radiation Dose CTDIVOL = (mGy): DLP = 2382.33 (mGy-cm)
[2019-08-04] MEDS: morphine 4 mg/mL SDV 1 mL 2 MG IVP (18:20)
--- NOTE | 2019-08-04 18:23 | PC.NURSE ---
Nurse unavailable for report to call back.
[2019-08-04] MEDS: iohexol 350 mg/mL 100 mL Btl IV (18:50)
--- NOTE | 2019-08-04 19:23 | ECG_ITS ---
Measurements Intervals [place] Rate: 80 P: 36 LA: 147 QRS: 55 QRSD: 86 T: 36 QT: 410 QTc: 474 SINUS RHYTHM Compared to ECG 03/02/2019 07:40:55 Sinus tachycardia no longer present T-wave abnormality no longer present Electronically Signed On 08-05-2019 8:01:05 CDT by Mitchell Santiago [email or web address]
--- NOTE | 2019-08-04 20:00 | PC.NURSE ---
Patient's Significant other entered the room and patient was present. Patient's significant other requested to speak to the patient's doctor and I told him that her doctor had seen her in the ER. He asked who was watching her tonight? I stated the nighttime hospitalist. He asked to speak to the night time hospitalist regarding the patient's care and he stated that he patient was not to have ANY NARCOTICS. He stated that this is what got her in this mess. I told the nighttime hospitalist his concerns and the family member went home. The patient looked at me and stated I am still the patient and I still have to be treated. He is not my . I told her that I know. I explained that when patient come in disoriented sometimes certain medications are held that can exacerbate the situation. Patient stated that she understood and stated that she was in pain management and only takes medications when she needs them. Will continue to monitor.
[2019-08-04] MEDS: enoxaparin 40 mg/0.4 mL Syringe SUBCUT (20:28)
[2019-08-04] MEDS: metoprolol tartrate 50 mg Tablet 100 MG PO (20:28)
[2019-08-04 20:29] LABS: Basophils % 0.3 %; Eosinophils # 0.2 10^3/uL (0.0-0.8); Eosinophils % 2.2 %; Hematocrit 35.2 % (37.0-47.0); Hemoglobin 10.9 g/dL (11.5-15.3); Lymphocytes # 1.7 10^3/uL (0.8-4.8); Lymphocytes % 23.6 %; Mean Corpuscular Hemoglobin 26.2 pg (28.0-34.0); Mean Corpuscular Volume 84.6 fL (81-99); Mean Platelet Volume 10.6 fL (7.4-10.4); Monocytes # 0.4 10^3/uL (0.2-0.9); Monocytes % 5.9 %; Neutrophils # 4.9 10^3/uL (1.8-7.7); Neutrophils % 67.3 %; Nucleated Red Blood Cells % 0 %; Red Blood Count 4.16 10^6/uL (4.1-5.3); Red Cell Distribution Width 14.7 % (12.1-15.1); White Blood Count 7.3 10^3/uL (4.0-10.0)
[2019-08-04] MEDS: gabapentin 400 mg Capsule 800 MG PO (20:29)
[2019-08-04] MEDS: FUROsemide 10 mg/mL SDV 4mL 40 MG IVP (20:43)
[2019-08-04 20:46] LABS: Glucose Point of Care 110 mg/dL (70-110)
[2019-08-04 20:55] LABS: Platelet Count 235 10^3/cmm (130-400); Slide Review Slide Review Perform
[2019-08-04 21:26] LABS: Amphetamines Screen Urine Negative (Negative); Barbiturates Screen Urine Negative (Negative); Benzodiazepines Screen Urine Positive (Negative); Cocaine Screen Urine Negative (Negative); Opiate Screen Urine Negative (Negative); PCP Screen Urine Negative (Negative); THC Screen Urine Negative (Negative)
[2019-08-04 21:26] LABS: INR 1.03 (0.8-1.2); Partial Thromboplastin Time 30.8 SECONDS (23.9-36.7)
[2019-08-04 21:35] LABS: Alanine Aminotransferase 19 U/L (0-33); Albumin Level 3.5 g/dL (3.5-5.2); Alkaline Phosphatase 128 IU/L (35-105); Anion Gap 16.5 (5-19); Aspartate Amino Transferase 22 U/L (0-32); Blood Urea Nitrogen 9 mg/dL (6-20); Carbon Dioxide 25 mmol/L (22-29); Chloride 102 mmol/L (98-107); Globulin 2.9 g/dL (1.3-4.6); Glomerular Filtration Rate 60.2 mL/min (90-130); Glucose 126 mg/dL (65-115); Osmolality Calculated 288 mOsm/kg (285-295); Potassium 3.5 mmol/L (3.5-5.1); Sodium 140 mmol/L (136-145); Total Bilirubin 0.2 mg/dL (0.15-1.2); Total Protein 6.4 g/dL (6.6-8.7)
[2019-08-05] VITALS (10 sets, daily range): BP systolic 103–131; BP diastolic 71–97; PULSE 67–81; RESP 18–25; TEMP 36.7–37.1; O2SAT 90–96
[2019-08-05] MEDS: TRAMadol 50 mg Tablet PO (00:41)
[2019-08-05] MEDS: ondansetron 2 mg/ML SDV 2 mL 4 MG IVP ×2 (00:42→07:44)
--- NOTE | 2019-08-05 03:14 | PC.NURSE ---
This Nurse notified by RT that patient had an accident and had been trying to notify staff for an hour. This nurse and INSURANCE ADJUSTER went to change patients bed and check on her. I asked patient why she did not use her call light to notify staff that she needed assistance. Patient stated she had been and hit the button on her bed. This nurse explained that button on her bed did not work and handed her the call light and told her about the bed button. Patient stated she didn't know why she had forgotten that. Staff assisted patient to the bathroom and changed her bed. Will continue to monitor.
[2019-08-05] MEDS: metoclopramide 5 mg/mL SDV 2 mL 10 MG IVP (03:22)
--- NOTE | 2019-08-05 04:35 | PC.NURSE ---
Went and rounded on patient and she was resting with eyes closed. Will continue to monitor.
[2019-08-05 05:10] LABS: Estmated Average Glucose 146; Hemoglobin A1C 6.7 % (4.0-6.0)
[2019-08-05 05:27] LABS: Thyroid Stimulating Hormone 2.73 uIU/mL (0.27-4.20)
[2019-08-05 05:35] LABS: Folate Level 14.8 ng/mL (4.8-37.3); Vitamin B12 405 pg/mL (232-1245)
--- NOTE | 2019-08-05 05:52 | PC.NURSE ---
Patient pressed her call light. Patient stated she wanted something for pain and nausea. Patient stated the tramadol, zofran, and reglan did not help. Told patient I will notify doctor. Will continue to monitor.
--- NOTE | 2019-08-05 06:19 | PC.NURSE ---
Patient also states that Tylenol will not help with the pain she is having. Patient updated that I notified the doctor of the medications not working and with pass the information to her day nurse. Will continue to monitor and patient verbalized understanding.
[2019-08-05] MEDS: lisinopril 20 mg Tablet 30 MG PO (09:20)
[2019-08-05] MEDS: FUROsemide 20 mg Tablet 60 MG PO (09:20)
[2019-08-05] MEDS: pantoprazole DR 40 mg Tablet PO (09:21)
[2019-08-05] MEDS: cloNIDine 0.1 mg Tablet 0.2 MG PO ×2 (09:21→17:32)
[2019-08-05] MEDS: gabapentin 400 mg Capsule 800 MG PO ×3 (09:21→20:46)
[2019-08-05] MEDS: topiramate 25 mg Tablet 50 MG PO ×2 (09:21→17:34)
[2019-08-05] MEDS: metoprolol tartrate 50 mg Tablet 100 MG PO ×2 (09:22→20:46)
[2019-08-05] MEDS: ARIPiprazole 10 mg Tablet 15 MG PO (09:22)
[2019-08-05] MEDS: oxyCODONE 10 mg ER (12 HR) Tablet 30 MG PO ×2 (12:18→17:34)
[2019-08-05] MEDS: enoxaparin 40 mg/0.4 mL Syringe SUBCUT (18:48)
--- NOTE | 2019-08-05 18:58 | PM.PN ---
Subjective Subjective: Interval history: Patient seen and examined earlier today, resting in bed, has been able to eat though complaints of nausea/vomiting and generalized abdominal discomfort, worked well with PT, CT L-spine unremarkable. VSS. Medications: Reviewed: Yes Medication Review Details: Active Medications Generic Name Dose Route Start Last Admin Trade Name Freq PRN Reason Stop Dose Admin Acetaminophen 650 mg 08/04/19 19:23 Tylenol PO Q6H PRN Mild/Mod Pain Or Temp >/= 101 Alprazolam 1 mg 08/04/19 19:23 Xanax PO TID PRN anxiety Amitriptyline HCl 75 mg 08/05/19 09:00 08/05/19 09:21 Elavil PO 75 mg DAILY FAHAD Administration Aripiprazole 15 mg 08/05/19 09:00 08/05/19 09:22 Abilify PO 15 mg DAILY FAHAD Administration Clonidine HCl 0.2 mg 08/05/19 09:00 08/05/19 17:32 Catapres PO 0.2 mg BID FAHAD Administration Enoxaparin Sodium 40 mg 08/04/19 19:23 08/05/19 18:48 Lovenox SUBCUT 40 mg Q24H FAHAD Administration Furosemide 60 mg 08/05/19 09:00 08/05/19 09:20 Lasix PO 60 mg DAILY FAHAD Administration Gabapentin 800 mg 08/04/19 21:00 08/05/19 15:04 Neurontin PO 800 mg TID FAHAD Administration Hydralazine HCl 10 mg 08/04/19 19:23 Apresoline IVP Q4H PRN SYSTOLIC BLOOD AK ESSURE Lisinopril 30 mg 08/05/19 09:00 08/05/19 09:20 Prinivil PO 30 mg DAILY FAHAD Administration Metoprolol Tartrat e 100 mg 08/05/19 21:00 Lopressor PO 0900,2100 FAHAD Naloxone HCl 0.1 mg 08/04/19 19:23 Narcan IVP Q2M PRN OPIATERV Ondansetron HCl 4 mg 08/04/19 19:23 08/05/19 07:44 Zofran IVP 4 mg Q6H PRN Administration NAUSEA AND VOMITI NG Oxycodone HCl 30 mg 08/05/19 11:45 08/05/19 17:34 Oxycontin PO 30 mg BID FAHAD Administration Pantoprazole Sodiu m 40 mg 08/05/19 09:00 08/05/19 09:21 Protonix PO 40 mg DAILY FAHAD Administration Topiramate 50 mg 08/05/19 09:00 08/05/19 17:34 Topamax PO 50 mg BID FAHAD Administration erythromycin base Allergy (Verified 08/01/19 05:50) ALGY-Hives ketorolac [From Toradol] Allergy (Verified 08/01/19 05:50) ALGY-Rash codeine Adverse Reaction (Verified 08/01/19 05:50) ADR-Itching Vitals/I&O/Wt Last Vital Signs Temp 98.2 F 08/05/19 15:43 Pulse 72 08/05/19 15:43 Resp 18 08/05/19 15:43 BP 131/89 08/05/19 17:32 Pulse Ox 93 08/05/19 15:43 08/05/19 08/05/19 08/05/19 06:59 14:59 22:59 Intake Total 100 / 100 360 / 360 240 / 600 Output Total 165 / 165 Balance 100 / 100 195 / 195 240 / 435 Weight last 48 hrs Weight 117.344 kg Weight 113.353 kg Weight 112.945 kg Physical Exam Const: COMMON NORMALS: no apparent distress and oriented x3 GENERAL APPEARANCE: cooperative and comfortable NUTRITIONAL APPEARANCE: obese morbidly obese ORIENTATION/CONSCIOUSNESS: Yes awake HENMT: COMMON NORMALS: normocephalic, head/scalp atraumatic, hearing grossly normal bilaterally and moist oral mucous membranes HEAD & SCALP: normocephalic and atraumatic Eye: COMMON NORMALS: PERRL, EOMs intact bilaterally and conjunctivae normal CONJUNCTIVA: Yes conjunctivae normal PUPIL: Yes PERRL Neck/C-Spine: COMMON NORMALS: full ROM GENERAL: Yes normal visual inspection and Yes trachea midline Resp: COMMON NORMALS: normal respiratory effort, no retractions, no use of accessory muscles and clear to auscultation bilaterally EFFORT & INSPECTION: Yes able to speak in complete sentences, Yes symmetric chest movement and No tachypneic AUSCULTATION: clear to auscultation bilaterally Cardio: COMMON NORMALS: regular rate, regular rhythm, S1 normal heart sound, S2 normal heart sound and no murmurs RATE: regular rate RHYTHM: regular rhythm HEART SOUNDS: S1 normal and S2 normal GI: COMMON NORMALS: normal to inspection, nondistended, normoactive bowel sounds, soft to palpation and non-tender INSPECTION: Yes central obesity PALPATION: Yes soft and Yes tender (diffuse) Extremity: COMMON NORMALS: normal to inspection, full ROM and no clubbing, cyanosis or edema; negative for no pedal edema Neuro: COMMON NORMALS: oriented x3, moves all extremities, no focal motor deficits and no sensory deficits noted Psych: COMMON NORMALS: mental status grossly normal, thought process normal, cooperative, affect normal and speech normal SPEECH: Yes normal speech THOUGHT PROCESS: normal thought process Skin: COMMON NORMALS: no rashes or lesions noted, no jaundice, no petechiae and no mottling GENERAL SKIN EXAM: no rashes or lesions noted Data : 08/04/19 19:47 08/04/19 20:51 A&P Assessment and plan (1) Generalized weakness: -patient had episode of generalized weakness, increased LE weakness and subsequent fall with + head trauma but no LOC, +urinary incontinence, has felt shaky since then and had difficulty ambulating -at baseline deals with chronic lower back pain and radiculopathy; intermittently ambulates with walker -fall precautions -reports hx of fibromyalgia, DJD; is on chronic opiates, f/u with Dr. Baeza (pain management). Per report received from ED, some concern from family about patient taking more than prescribed meds, have taken away hydrocodone from her -pain control as needed with close monitoring of neuro, hemodynamic, respiratory status -does not seem consistent with seizure-like activity, no reported hx of seizure episodes -given hx of chronic lower back pain, urinary incontinence and difficulty with ambulation, CT L-spine unremarkable. Had prior CT L-spine done in 10/2017 which showed mild lower lumbar facet spondylosis -PT/OT evaluations appreciated -noted A1c, folate, vitamin B12, TSH, done due to reported paresthesias Status: Acute Code(s): R53.1 - Weakness (2) Hypertension: -has known hx of HTN, quite hypertensive currently in ED -suspect this is due to not taking her meds for a few days which include clonidine, element of rebound hypertension and possible withdrawal from opiates -given dose of Labetalol 10 mg IV and Clonidine 0.1 mg -resume oral antihypertensive regimen -continue to monitor vital signs Status: Chronic Qualifiers: Hypertension type: essential hypertension Qualified Code(s): I10 - Essential (primary) hypertension Code(s): I10 - Essential (primary) hypertension (3) Morbid obesity: -BMI-43 kg/m2 -pending gastric sleeve surgery, to be done by Dr. Rodriguez Status: Chronic Code(s): E66.01 - Morbid (severe) obesity due to excess calories Additional A&P Information -PTSD, Bipolar depression, Anxiety; resume meds, monitor mental status, hemodynamic and respiratory status -migraine headaches; continue topiramate -chronic LE edema, continue lasix -Hyperlipidemia; continue statin -noted hyperglycemia and glucosuria; A1c-6.7 -GERD; continue PPI -HALINA on CPAP qhs -has documented hx of hypothyroidism; no levothyroxine on med rec, check TSH -hx of irritable bowel syndrome; alternates between constipation and diarrhea -Chronic diastolic CHF; last Echo (08/2018): EF=65-70%, G1DD, mild pulmonary HTN (31), trace to mild TR -Chronic normocytic anemia; baseline Hg 9-11 -CKD stage 2-3; baseline Cr around 1 -GI ppx with PPI -DVT ppx with Lovenox; cannot tolerate SCDs due to pain -Dispo: home -Code status: FULL code Attestations Medical Necessity Statement*: Patient requires hospitalization for continued pain control, pending improved oral tolerance. Time Spent in Patient Care: 16 - 35 minutes (>than 50% of time spent in counselling and/or direct pt care on unit). Coding Level of Care Code Acute Marketing Automation Manager for Chg Fwd Diagnoses Generalized weakness R53.1 Hypertension I10 Hypertension type: essential hypertension Morbid obesity E66.01
[2019-08-06] VITALS (10 sets, daily range): BP systolic 89–139; BP diastolic 54–81; PULSE 66–90; RESP 8–18; TEMP 36.7–37; O2SAT 91–97
--- NOTE | 2019-08-06 05:25 | CTR_ITS ---
PROCEDURE INFORMATION: Exam: CT Head Without Contrast Exam date and time: 08/06/2019 5:45 AM Age: 43 years old Clinical indication: Injury or trauma; Fall; Initial encounter; Abrasion; Head, generalized TECHNIQUE: Imaging protocol: Computed tomography of the head without contrast. Total DLP: 800.84 mGy-cm Radiation optimization: All CT scans at this facility use at least one of these dose optimization techniques: automated exposure control; mA and/or kV adjustment per patient size (includes targeted exams where dose is matched to clinical indication); or iterative reconstruction. COMPARISON: CT head wo con* [id number] 08/04/2019 3:33 PM FINDINGS: Brain: Normal. No hemorrhage. Unremarkable white matter. No mass effect. Ventricles: Normal. No ventriculomegaly. Bones/joints: Unremarkable. No acute fracture. Sinuses: There is mild mucosal thickening seen within the ethmoidal sinuses bilaterally. Mastoid air cells: Visualized mastoid air cells are well aerated. Soft tissues: Unremarkable. CT/CT head wo con* [id number] IMPRESSION: There are no acute intracranial findings. Radiation Dose CTDIVOL = (mGy): DLP = 800.84 (mGy-cm)
--- NOTE | 2019-08-06 05:36 | PC.NURSE ---
Patient pulled bathroom light. LEAK OPERATOR [employer]ANT went to check on patient and staff assist light was pressed. When staff entered the room patient was found sitting upright against the door frame. Staff questioned the patient about what happened and she stated her left leg just gave out. Staff asked if patient hurt anywhere she complained of her bumping her head. Charge nurse inspected patient's head and no open areas or bleeding noted. Patient stated it felt like she passed out and when she woke up she pulled the assist light. When questioned why she didn't use her call light for assistance she stated she hadn't been needing help the prior shift. Doctor Noa was notified and [employer]. orders recieved and will continue to [facility]. Neuro check and vitals was done with charge nurse. Patient AxO x3.
--- NOTE | 2019-08-06 05:39 | PHA.FALL ---
A Pharmacy Consult Was Conducted For Abena Galan Due To: Bell Fall Scale Risk Level: High Fall Risk On 08/06/19 05:26 And A Medication Fall Risk Score Greater Than 10. The Recommendations Are As Follows: Considered the need for the combination of these drugs listed as high-risk medications attributed to falls in older adults by the [place] [employer]: Amitriptyline, Aripiprazole, Alprazolam, Gabapentin, Topiramate, Oxycodone, and the home med of Triazolam. The combination of all of these presents an extremely high risk of falls.
[2019-08-06] MEDS: acetaminophen 325 mg Tablet 650 MG PO (06:18)
--- NOTE | 2019-08-06 07:42 | PM.PN ---
Subjective Subjective: Interval history: Reportedly patient fell while trying to ambulate to the bathroom, unwitnessed but called for help and found leaning against door frame. Repeat CT head done, unremarkable. Assisted back to bed, has had no neuro changes noted since incident. VSS. Borderline orthostatic, will hold BP meds and give NS bolus with continued BP monitoring. Patient initially seen in the morning, resting in bed, abdominal symptom seem to have resolved, requested PT re-evaluation. Seen later in the afternoon, sitting up in a chair, reports feeling better, blood pressure seems to be better as well. Discussed possibility of discharge home tomorrow which she is agreeable to. Discussed need to ask for help when trying to get up to go to the bathroom to avoid repeat fall, patient verbalizes understanding of this. Medications: Reviewed: Yes Medication Review Details: Active Medications Generic Name Dose Route Start Last Admin Trade Name Freq PRN Reason Stop Dose Admin Acetaminophen 650 mg 08/04/19 19:23 08/06/19 06:18 Tylenol PO 650 mg Q6H PRN Administration Mild/Mod Pain Or Temp >/= 101 Alprazolam 1 mg 08/04/19 19:23 Xanax PO TID PRN anxiety Amitriptyline HCl 75 mg 08/05/19 09:00 08/05/19 09:21 Elavil PO 75 mg DAILY FAHAD Administration Aripiprazole 15 mg 08/05/19 09:00 08/05/19 09:22 Abilify PO 15 mg DAILY FAHAD Administration Clonidine HCl 0.2 mg 08/05/19 09:00 08/05/19 17:32 Catapres PO 0.2 mg BID FAHAD Administration Enoxaparin Sodium 40 mg 08/04/19 19:23 08/05/19 18:48 Lovenox SUBCUT 40 mg Q24H FAHAD Administration Furosemide 60 mg 08/05/19 09:00 08/05/19 09:20 Lasix PO 60 mg DAILY FAHAD Administration Gabapentin 800 mg 08/04/19 21:00 08/05/19 20:46 Neurontin PO 800 mg TID FAHAD Administration Hydralazine HCl 10 mg 08/04/19 19:23 Apresoline IVP Q4H PRN SYSTOLIC BLOOD NV ESSURE Lisinopril 30 mg 08/05/19 09:00 08/05/19 09:20 Prinivil PO 30 mg DAILY FAHAD Administration Metoprolol Tartrat e 100 mg 08/05/19 21:00 08/05/19 20:46 Lopressor PO 100 mg 0900,2100 FAHAD Administration Naloxone HCl 0.1 mg 08/04/19 19:23 Narcan IVP Q2M PRN OPIATERV Ondansetron HCl 4 mg 08/04/19 19:23 08/05/19 07:44 Zofran IVP 4 mg Q6H PRN Administration NAUSEA AND VOMITI NG Oxycodone HCl 30 mg 08/05/19 11:45 08/05/19 17:34 Oxycontin PO 30 mg BID FAHAD Administration Pantoprazole Sodiu m 40 mg 08/05/19 09:00 08/05/19 09:21 Protonix PO 40 mg DAILY FAHAD Administration Topiramate 50 mg 08/05/19 09:00 08/05/19 17:34 Topamax PO 50 mg BID FAHAD Administration erythromycin base Allergy (Verified 08/01/19 05:50) ALGY-Hives ketorolac [From Toradol] Allergy (Verified 08/01/19 05:50) ALGY-Rash codeine Adverse Reaction (Verified 08/01/19 05:50) ADR-Itching Vitals/I&O/Wt Last Vital Signs Temp 98.0 F 08/06/19 07:34 Pulse 73 08/06/19 07:34 Resp 18 08/06/19 07:34 BP 99/74 08/06/19 07:34 Pulse Ox 93 08/06/19 07:34 08/05/19 08/06/19 08/06/19 22:59 06:59 14:59 Intake Total 480 / 840 220 / 1060 Balance 480 / 675 220 / 895 Weight last 48 hrs Weight 116.709 kg Weight 117.344 kg Weight 113.353 kg Weight 112.945 kg Physical Exam Const: COMMON NORMALS: no apparent distress and oriented x3 GENERAL APPEARANCE: cooperative and comfortable NUTRITIONAL APPEARANCE: obese morbidly obese ORIENTATION/CONSCIOUSNESS: Yes awake HENMT: COMMON NORMALS: normocephalic, head/scalp atraumatic, hearing grossly normal bilaterally and moist oral mucous membranes HEAD & SCALP: normocephalic and atraumatic Eye: COMMON NORMALS: PERRL, EOMs intact bilaterally and conjunctivae normal CONJUNCTIVA: Yes conjunctivae normal PUPIL: Yes PERRL Neck/C-Spine: COMMON NORMALS: full ROM GENERAL: Yes normal visual inspection and Yes trachea midline Resp: COMMON NORMALS: normal respiratory effort, no retractions, no use of accessory muscles and clear to auscultation bilaterally EFFORT & INSPECTION: Yes able to speak in complete sentences, Yes symmetric chest movement and No tachypneic AUSCULTATION: clear to auscultation bilaterally Cardio: COMMON NORMALS: regular rate, regular rhythm, S1 normal heart sound, S2 normal heart sound and no murmurs RATE: regular rate RHYTHM: regular rhythm HEART SOUNDS: S1 normal and S2 normal GI: COMMON NORMALS: normal to inspection, nondistended, normoactive bowel sounds, soft to palpation and non-tender INSPECTION: Yes central obesity PALPATION: Yes soft Extremity: COMMON NORMALS: normal to inspection, full ROM and no clubbing, cyanosis or edema; negative for no pedal edema Neuro: COMMON NORMALS: oriented x3, moves all extremities, no focal motor deficits and no sensory deficits noted Psych: COMMON NORMALS: mental status grossly normal, thought process normal, cooperative and speech normal SPEECH: Yes normal speech MOOD & AFFECT: Yes flat affect THOUGHT PROCESS: normal thought process Skin: COMMON NORMALS: no rashes or lesions noted, no jaundice, no petechiae and no mottling GENERAL SKIN EXAM: no rashes or lesions noted Data : 08/04/19 19:47 08/04/19 20:51 A&P Assessment and plan (1) Generalized weakness: -patient had episode of generalized weakness, increased LE weakness and subsequent fall with + head trauma but no LOC, +urinary incontinence, has felt shaky since then and had difficulty ambulating -at baseline deals with chronic lower back pain and radiculopathy; intermittently ambulates with walker -fall precautions; unwitnessed fall overnight, repeat CT head unremarkable -reports hx of fibromyalgia, DJD; is on chronic opiates, f/u with Dr. Baeza (pain management). Per report received from ED, some concern from family about patient taking more than prescribed meds, have taken away hydrocodone from her -pain control as needed with close monitoring of neuro, hemodynamic, respiratory status -does not seem consistent with seizure-like activity, no reported hx of seizure episodes -given hx of chronic lower back pain, urinary incontinence and difficulty with ambulation, CT L-spine unremarkable. Had prior CT L-spine done in 10/2017 which showed mild lower lumbar facet spondylosis -PT/OT evaluations appreciated -noted A1c, folate, vitamin B12, TSH, done due to reported paresthesias; will supplement folic acid and vitamin B12 -negative orthostats, have repeat PT evaluation today Status: Acute Code(s): R53.1 - Weakness (2) Hypertension: -has known hx of HTN, quite hypertensive currently in ED -suspect this is due to not taking her meds for a few days which include clonidine, element of rebound hypertension and possible withdrawal from opiates -given dose of Labetalol 10 mg IV and Clonidine 0.1 mg -continue oral antihypertensive regimen -continue to monitor vital signs Status: Chronic Qualifiers: Hypertension type: essential hypertension Qualified Code(s): I10 - Essential (primary) hypertension Code(s): I10 - Essential (primary) hypertension (3) Morbid obesity: -BMI-43 kg/m2 -pending gastric sleeve surgery, to be done by Dr. Rodriguez Status: Chronic Code(s): E66.01 - Morbid (severe) obesity due to excess calories Additional A&P Information -PTSD, Bipolar depression, Anxiety; resume meds, monitor mental status, hemodynamic and respiratory status -migraine headaches; continue topiramate -chronic LE edema, continue lasix -Hyperlipidemia; continue statin -noted hyperglycemia and glucosuria; A1c-6.7 -GERD; continue PPI -HALINA on CPAP qhs -has documented hx of hypothyroidism; no levothyroxine on med rec, check TSH -hx of irritable bowel syndrome; alternates between constipation and diarrhea -Chronic diastolic CHF; last Echo (08/2018): EF=65-70%, G1DD, mild pulmonary HTN (31), trace to mild TR -Chronic normocytic anemia; baseline Hg 9-11 -CKD stage 2-3; baseline Cr around 1 -GI ppx with PPI -DVT ppx with Lovenox; cannot tolerate SCDs due to pain -Dispo: home; anticipate discharge tomorrow -Code status: FULL code Attestations Medical Necessity Statement*: Patient requires hospitalization for continued management of generalized weakness with noted fall overnight. Time Spent in Patient Care: 16 - 35 minutes (>than 50% of time spent in counselling and/or direct pt care on unit). Coding Level of Care Code Acute Court Transcriber for Jolly Santos Exam Comprehensive Diagnoses Generalized weakness R53.1 Hypertension I10 Hypertension type: essential hypertension Morbid obesity E66.01
--- NOTE | 2019-08-06 08:15 | PC.NURSE ---
Orthostatic BP assessment postive. Patient noted to be moderately lethargic and shaking. blood glucose and neurological status assessed. BG and neuro check WNL. Dr. Oates notified of results. Physician to make medication adjustments.
[2019-08-06 08:17] LABS: Glucose Point of Care 171 mg/dL (70-110)
[2019-08-06] MEDS: sodium chloride 0.9% 1,000 ML 999 ML IV (08:32)
[2019-08-06] MEDS: ARIPiprazole 10 mg Tablet 15 MG PO (09:23)
[2019-08-06] MEDS: oxyCODONE 10 mg ER (12 HR) Tablet 30 MG PO ×2 (09:24→18:10)
[2019-08-06] MEDS: cyanocobalamin 1,000 mcg Tablet 1000 MCG PO (09:25)
[2019-08-06] MEDS: pantoprazole DR 40 mg Tablet PO (09:25)
[2019-08-06] MEDS: topiramate 25 mg Tablet 50 MG PO ×2 (09:25→18:11)
[2019-08-06] MEDS: folic acid 1 mg Tablet PO (09:26)
[2019-08-06 16:26] LABS: Glucose Point of Care 113 mg/dL (70-110)
[2019-08-06] MEDS: enoxaparin 40 mg/0.4 mL Syringe SUBCUT (19:35)
[2019-08-06] MEDS: ondansetron 2 mg/ML SDV 2 mL 4 MG IVP (22:50)
[2019-08-07] VITALS (8 sets, daily range): BP systolic 127–165; BP diastolic 81–89; PULSE 89–102; RESP 14–20; TEMP 36.7–36.9; O2SAT 93–95; BMI 44.4
[2019-08-07] MEDS: promethazine 25 mg/mL SDV 1 mL 12.5 MG IM (03:01)
--- NOTE | 2019-08-07 03:11 | PC.NURSE ---
at 0230 patient threw up two more times. It appeared to be chicken noodle soup. Patient had been given zofran IVP at 2230 for nausea. after throwing up more patient was requesting something else for unrelieved nausea.
--- NOTE | 2019-08-07 03:19 | PC.NURSE ---
PATIENT HAD THREE BOUTS OF VOMITING YELLOW CHICKEN SOUP COLORED VOMIT, CRACKERS AND SPRITE GIVEN AFTER THE FIRST AND ZOFRAN, AFTER THE NET TWO DR. SHETTY CALLED TO SEE IF COULD GET SOME PHENERGEN WHICH SHE APPROVED OF 12.5 1 TIME.
--- NOTE | 2019-08-07 07:09 | PM.DCS ---
Discharge Providers Date of Admission: 08/04/19 17:33 Date of Discharge: August 07, 2019 Attending Provider at Admission: Michell Oates MD Attending Provider at Discharge: Michell Oates MD Primary Care Provider: CARITO Lyons Diagnoses at Discharge Discharge Diagnosis (1) Generalized weakness: Status: Acute Problem details: -patient had episode of generalized weakness, increased LE weakness and subsequent fall with + head trauma but no LOC, +urinary incontinence, has felt shaky since then and had difficulty ambulating -at baseline deals with chronic lower back pain and radiculopathy; intermittently ambulates with walker -fall precautions; unwitnessed fall overnight, repeat CT head unremarkable -reports hx of fibromyalgia, DJD; is on chronic opiates, f/u with Dr. Baeza (pain management). Per report received from ED, some concern from family about patient taking more than prescribed meds, have taken away hydrocodone from her -pain control as needed with close monitoring of neuro, hemodynamic, respiratory status -does not seem consistent with seizure-like activity, no reported hx of seizure episodes -given hx of chronic lower back pain, urinary incontinence and difficulty with ambulation, CT L-spine unremarkable. Had prior CT L-spine done in 10/2017 which showed mild lower lumbar facet spondylosis -PT/OT evaluations appreciated -noted A1c, folate, vitamin B12, TSH, done due to reported paresthesias; will supplement folic acid and vitamin B12 -negative orthostats, had repeat PT evaluation with recommendation for return home (2) Hypertension: Status: Chronic Problem details: -has known hx of HTN, quite hypertensive currently in ED -suspect this is due to not taking her meds for a few days which include clonidine, element of rebound hypertension and possible withdrawal from opiates -given dose of Labetalol 10 mg IV and Clonidine 0.1 mg -continue oral antihypertensive regimen -continue to monitor vital signs Qualifiers: Hypertension type: essential hypertension Qualified Code(s): I10 - Essential (primary) hypertension (3) Morbid obesity: Status: Chronic Problem details: -BMI-43 kg/m2 -pending gastric sleeve surgery, to be done by Dr. Rodriguez Other Information Additional DC diagnoses/information: -PTSD, Bipolar depression, Anxiety; resume meds, monitor mental status, hemodynamic and respiratory status -migraine headaches; continue topiramate -chronic LE edema, continue lasix -Hyperlipidemia; continue statin -noted hyperglycemia and glucosuria; A1c-6.7 -GERD; continue PPI -HALINA on CPAP qhs -has documented hx of hypothyroidism; no levothyroxine on med rec, check TSH -hx of irritable bowel syndrome; alternates between constipation and diarrhea -Chronic diastolic CHF; last Echo (08/2018): EF=65-70%, G1DD, mild pulmonary HTN (31), trace to mild TR -Chronic normocytic anemia; baseline Hg 9-11 -CKD stage 2-3; baseline Cr around 1 Reason for Visit Reason for Visit: Reason For Visit: Generalized weakness Hospital Course Hospital Course: Patient was admitted to the cardiac stepdown unit, and hemodynamic status monitored. She was evaluated by PT and cleared for discharge home with HEP and use of walker/WC which she uses at baseline. She has been hemodynamically stable during her hospital stay. She has had some intermittent issues with nausea alleviated with antiemetics. She is tolerating oral intake without difficulty. She did have an unwitnessed fall with no noted deficits and had repeat CT head which was unremarkable. Additional imaging done on admission as noted above was also negative for any remarkable findings. She is on a number of opiates and antipsychotics at baseline which may need to be streamlined at some point particularly if she has recurrent issues with generalized weakness or GI issues. She is counseled on need to continue to consistently use her walker and assistance with out of bed activity, given continued weakness. I am suspicious of some element of exaggeration of her symptoms on her part as well. She had another fall earlier today as she got up on her own, she describes feeling dizzy just before she fell. No LOC and no head trauma. Currently hemodynamically stable, sitting comfortably in chair, denies lightheadedness/dizziness. She has adequate support at home per her description and has in-home services with visits 7 days/week. Confirmed that she has a RW at home as well. Discharge Summary: -Patient to follow up with primary care physician within 1 week -Patient to continue to follow up with pain management and psychiatry Physical Exam Const: COMMON NORMALS: no apparent distress and oriented x3 GENERAL APPEARANCE: cooperative and comfortable NUTRITIONAL APPEARANCE: obese morbidly obese ORIENTATION/CONSCIOUSNESS: Yes awake HENMT: COMMON NORMALS: normocephalic, head/scalp atraumatic, hearing grossly normal bilaterally and moist oral mucous membranes HEAD & SCALP: normocephalic and atraumatic Eye: COMMON NORMALS: PERRL, EOMs intact bilaterally and conjunctivae normal CONJUNCTIVA: Yes conjunctivae normal PUPIL: Yes PERRL Neck/C-Spine: COMMON NORMALS: full ROM GENERAL: Yes normal visual inspection and Yes trachea midline Resp: COMMON NORMALS: normal respiratory effort, no retractions, no use of accessory muscles and clear to auscultation bilaterally EFFORT & INSPECTION: Yes able to speak in complete sentences, Yes symmetric chest movement and No tachypneic AUSCULTATION: clear to auscultation bilaterally Cardio: COMMON NORMALS: regular rate, regular rhythm, S1 normal heart sound, S2 normal heart sound and no murmurs RATE: regular rate RHYTHM: regular rhythm HEART SOUNDS: S1 normal and S2 normal GI: COMMON NORMALS: normal to inspection, nondistended, normoactive bowel sounds, soft to palpation and non-tender INSPECTION: Yes central obesity PALPATION: Yes soft Extremity: COMMON NORMALS: normal to inspection, full ROM and no clubbing, cyanosis or edema; negative for no pedal edema Neuro: COMMON NORMALS: oriented x3, moves all extremities, no focal motor deficits and no sensory deficits noted Psych: COMMON NORMALS: mental status grossly normal, thought process normal, cooperative and speech normal SPEECH: Yes normal speech MOOD & AFFECT: Yes flat affect THOUGHT PROCESS: normal thought process Skin: COMMON NORMALS: no rashes or lesions noted, no jaundice, no petechiae and no mottling GENERAL SKIN EXAM: no rashes or lesions noted Discharge Data Data Completed and Pending: Completed Studies During Hospitalization Category Date Time Status CT angio headneck * 58790/12901 Urge nt Cat Scan 08/04/19 17:[address] head wo con* 7 0450 Stat Cat Scan 08/06/19 05:[address] head wo con* 7 0450 Urgent Cat Scan 08/04/19 15:[address] lumbar spine w o con* 86030 Routi ne Cat Scan 08/04/19 18:08 Completed XR chest 1V ivan ble 27045 Urgent Exams 08/04/19 15:12 Completed Labs from last 24 hours 08/06/19 08/06/19 16:06 08:11 POC Glucose 113 171 Vitals: Last Vital Signs Temp 98.3 F 08/07/19 06:58 Pulse 91 08/07/19 06:58 Resp 14 08/07/19 06:58 BP 147/83 08/07/19 06:58 Pulse Ox 93 08/07/19 06:58 Discharge Plan Discharge Patient Disposition: Home, Self-Care Condition: Stable Prescriptions: New ondansetron 4 mg tablet,disintegrating 4 mg PO Q8H PRN (Reason: nausea and vomiting) 5 Days Qty: 15 RF: 0 Continued aripiprazole [Abilify] 15 mg tablet 15 mg PO DAILY Qty: 30 RF: 2 bupropion HCl [Wellbutrin XL] 300 mg tablet extended release 24 hr 300 mg PO QAM Qty: 30 RF: 2 topiramate [Topamax] 50 mg tablet 50 mg PO BID Qty: 60 RF: 2 amitriptyline 75 mg tablet 75 mg PO DAILY Qty: 30 RF: 2 omeprazole 40 mg PO DAILY RF: 0 furosemide [Lasix] 20 mg tablet 60 mg PO DAILY RF: 0 hydrocodone-acetaminophen 10-325 mg tablet 1 tab PO Q4H PRN (Reason: pain) RF: 0 gabapentin [Neurontin] 800 mg tablet 800 mg PO TID RF: 0 triazolam 0.25 mg tablet 0.375 mg PO .at bedtime Qty: 45 RF: 2 alprazolam 1 mg tablet 1 mg PO TID PRN (Reason: anxiety) Qty: 30 RF: 2 metoprolol tartrate 100 mg tablet 100 mg PO TID RF: 0 lisinopril 20 mg tablet 30 mg PO DAILY RF: 0 clonidine HCl 0.2 mg tablet 0.2 mg PO BID RF: 0 OxyContin 30 mg tablet,oral only,ext.rel.12 hr 30 mg PO BID RF: 0 Discharge Orders: Discharge Order (Routine); Ordered 08/07/19 Ordered By: Michell Oates Referrals: Lianet De Jesus DPM [Primary Care Provider] - 4-7 days (Post hospital discharge follow up.) Discharge Diet: Advance as tolerated Discharge Activity: Resume usual activity and As per PT/OT instructions Activity Restrictions/Additional Instructions: -continue to consistently use walker and assistance with activity to prevent falls. -please seek medical attention immediately if symptoms worsen or persist. Discharge Attestations Time Spent in Discharge Care*: greater than 30 min Specific Discharge Activities: Specific discharge activities: educating patient, discussing with correctional counselor/case manager/social workers/dc planners, documenting/other paperwork and evaluating patient/reviewing data Status at Discharge: Cognitive status at discharge: cognitively intact, Behavioral status at discharge: cooperative, Functional status at discharge: uses cane/walker Overall status at discharge: patient is back to baseline Quality Metrics Clinical Quality Measures During this hospital stay, did patient experience: None Coding Level of Care Code Acute Vocational Placement Specialist for Chg Fwd Exam Comprehensive Diagnoses Generalized weakness R53.1 Hypertension I10 Hypertension type: essential hypertension Morbid obesity E66.01
[2019-08-07] MEDS: oxyCODONE 10 mg ER (12 HR) Tablet 30 MG PO (08:20)
[2019-08-07] MEDS: pantoprazole DR 40 mg Tablet PO (08:21)
[2019-08-07] MEDS: topiramate 25 mg Tablet 50 MG PO (08:21)
[2019-08-07] MEDS: ARIPiprazole 10 mg Tablet 15 MG PO (08:22)
[2019-08-07] MEDS: folic acid 1 mg Tablet PO (08:22)
[2019-08-07] MEDS: cyanocobalamin 1,000 mcg Tablet 1000 MCG PO (08:22)
--- NOTE | 2019-08-07 10:05 | PC.SOCIAL ---
IMM Update. Pg 2 of IMM given and explained to patient who verbalized understanding. Copy provided to patient and copy in chart updated.
--- NOTE | 2019-08-07 14:07 | PC.NURSE ---
Discharge instructions given per the physician's order. Patient verbalized understanding and did not have any further questions.
== END 2019-08-07 16:30 | disposition home or self-care (01) | DRG 948 ==
LOC: ER 17:44 → CSU 17:51
PROVIDERS: Admitting Provider Family Medicine; Emergency Provider Emergency Medicine; Family Provider Nurse Practitioner; PCP Nurse Practitioner; Visit Provider Family Medicine
DX: R53.1 Weakness (principal); Z68.41 Body mass index [BMI] 40.0-44.9, adult; E66.01 Morbid (severe) obesity due to excess calories; R32 Unspecified urinary incontinence; D64.9 Anemia, unspecified; F43.10 Post-traumatic stress disorder, unspecified; F41.9 Anxiety disorder, unspecified; F31.9 Bipolar disorder, unspecified; G47.33 Obstructive sleep apnea (adult) (pediatric); G43.909 Migraine, unspecified, not intractable, without status migrainosus; E78.5 Hyperlipidemia, unspecified; R73.9 Hyperglycemia, unspecified; K21.9 Gastro-esophageal reflux disease without esophagitis; N18.3 Chronic kidney disease, stage 3 (moderate); I12.9 Hypertensive chronic kidney disease with stage 1 through stage 4 chronic kidney disease, or unspecified chronic kidney disease; Z79.811 Long term (current) use of aromatase inhibitors; Z79.84 Long term (current) use of oral hypoglycemic drugs; Z79.899 Other long term (current) drug therapy
CPT/HCPCS: 12345; 36415; 36416; 70450; 70496; 70498; 71045; 72131; 80053; 80306; 80307; 81003; 81025; 82607; 82746; 82962; 83036; 83735; 84443; 85025; 85610; 85730; 93005; 93010; 96365; 96372; 96374; 96375; 97110; 97116; 97161; 97165; 97530; 97535; 99283; A9270; J0131; J1644; J1650; J1940; J2270; J2405; J2550; J2765; J3490; J7030; Q9967

== ENCOUNTER 2019-11-14 05:30 | Inpatient (IN) | payer MEDICARE, MEDICAID, SELFPAY ==
[2019-11-13 13:55] VITALS: BMI 44.8
[2019-11-14] VITALS (29 sets, daily range): BP systolic 109–145; BP diastolic 72–90; PULSE 68–93; RESP 16–34; TEMP 35.6–37.2; O2SAT 92–100
--- NOTE | 2019-11-14 05:51 | W.PM.OPSUD ---
Surgery/Procedure H&P Update DATE OF PROCEDURE: November 14, 2019 DATE H&P PERFORMED: 07/04/19 H&P UPDATE INFORMATION: I have reviewed H&P completed within last 30 days and No changes to prior documentation (Said that the patient reports that she lost about 14 pounds since she has been on liquid protein diet for 12 days) PREOP DIAGNOSIS: Morbid obesity PRIMARY INDICATION FOR PROCEDURE: The same PLANNED PROCEDURE: Operation Date: 11/14/19 07:00 Proposed Procedures p Laparoscopic Vertical Gastric Sleeve w/ EGD 16541 55339 E66.09(Not Applicable) - Sulaiman Sarabia MD s EGD(Not Applicable) - Sulaiman Sarabia MD
--- NOTE | 2019-11-14 06:19 | ANES.PREANE2 ---
Pre-Anesthetic Assessment Pre-Anesthetic Assessment: Height/Weight: Height 1.63 m Weight 118.388 kg Temp Pulse Resp BP Pulse Ox 97.9 F 93 16 143/88 99 11/14/19 05:59 11/14/19 05:59 11/14/19 05:59 11/14/19 05:59 11/14/19 05:59 Preop Diagnosis: Morbid obesity Proposed Procedure: Operation Date: 11/14/19 07:00 Proposed Procedures p Laparoscopic Vertical Gastric Sleeve w/ EGD 35627 21522 E66.09(Not Applicable) - Sulaiman Sarabia MD s EGD(Not Applicable) - Sulaiman Sarabia MD Familial anesthetic complications: None Last intake: Intake Last Liquid Date 11/14/19 Last Liquid Time 04:15 Last Solid Date 11/11/19 Last Solid Time 08:00 Social: Social History: No alcohol and No tobacco Exam: Pre-Anes Outpt Exam: alert, oriented x 3, clear to auscultation bilaterally and regular rate & rhythm Airway: Cervical ROM: WNL MP: 3 Dentition: Chipped Pulmonary: Pulmonary: Sleep apnea (has not received her CPAP yet (just diagnosed)) CV/HEM: CV/HEM: HTN Comments: peripheral edema : : None reported Hepatic: Hepatic: None reported GI: GI: GERD Metabolic: Metabolic: Morbid obesity Musc/skel: Musc/skel: None reported Neuropsych: Neuropsych: Seizure (7 years ago (just once - unknown etiology)) Anesthetic Plan: ASA status: 2 Anesthesia: General Risk of > 500 ml blood loss (7ml/kg in children): No PFSH Anesthesia PFSH: Medical History (Updated 11/04/19 @ 08:01 by Sulaiman Sarabia MD) Bipolar disorder Bipolar disorder, current episode depressed, moderate Generalized anxiety disorder GERD (gastroesophageal reflux disease) Hypertension Migraine headache Morbid obesity PTSD (post-traumatic stress disorder) Sleep apnea Surgical History History of cholecystectomy in 2012 History of colonoscopy History of esophagogastroduodenoscopy (EGD) History of hysterectomy 2012, done due to endometriosis Family History Mother Anesthesia complication Denies family history of Bleeding disorder Social History Smoking and tobacco status: never smoked Alcohol intake: former Lives independently: Yes Household members: children Current occupational status: disabled History of recent travel: No Data Anesthesia Cardiac Studies: No Data to Display
[2019-11-14] MEDS: sodium chloride 0.9% 1,000 ML 30 ML IV (06:52)
[2019-11-14] MEDS: heparin 5,000 unit/mL INJ 1 mL 5000 UNIT INJECTION (06:53)
[2019-11-14] MEDS: scopolamine 1.5 Patch 1 PATCH TRANSDERMA (06:53)
[2019-11-14] MEDS: ondansetron 2 mg/ML SDV 2 mL 4 MG IVP ×4 (06:53→12:45)
[2019-11-14] MEDS: metoprolol tartrate 50 mg Tablet 100 MG PO (06:55)
[2019-11-14] MEDS: pantoprazole 40 mg SDV IVP (07:25)
[2019-11-14] MEDS: lidocaine 2% INJ 20 mL INJECTION (07:37)
--- NOTE | 2019-11-14 08:09 | SUR.OPER ---
s/o updated of surgical status.
--- NOTE | 2019-11-14 09:28 | SUR.OPER ---
s/o updated of surgical status.
--- NOTE | 2019-11-14 09:59 | P.OP_ITS ---
Operative Report Date of procedure: November 14, 2019 Pre-op Diagnosis: Morbid obesity Post-op diagnosis: other (Hepatomegaly) Procedure Done: Laparoscopic vertical sleeve gastrectomy and intraoperative EGD Implants: Large piece of Surgicel onto the inferior surface of the left lobe of the liver Specimens removed/disposition: Partial gastrectomy Surgeon: Sulaiman Sarabia Ems Coordinator: Paul Elizabeth Circulating nurse Lorenza Anesthesia: General (water sponger is Sanket and Misty) Estimated blood loss (mL): 25 IV fluids (mL): 1,500 Urine output (mL): 40 Condition: stable Disposition: floor Brief History: This is a pleasant 44 years old female patient morbidly obese with associated multiple medical comorbidities she was seen and evaluated at my bariatric surgery office and she met all the appropriate criteria for surgery and was cleared by psych service. After thorough history physical examination and reviewing the chart Overall, I believe the patient would be a great candidate for bariatric surgery. Patient have doubled demonstration understanding of all the appropriate teaching including diet, exercise and NSAID use. The patient appears to be committed to the lifestyle changes acquired for bariatric surgery I have discussed with the patient the potential risks of the surgery, including wound infection, wound problems,bleeding, anastomotic leak,internal hernia, stricture, ulceration, abdominal hernia, DVT/PE,, pneumonia,dumping syndrome, vitamin and mineral deficiencies, gallbladder and kidney stones ,sepsis, multiorgan failure and even , and potential future surgical interventions. Also patient is counseled about the potential complications associated with the bougie and EGD placement and insertion with potential injury to the underlying viscera including but not limited to the esophagus stomach and duodenum that may require potential surgical intervention and conversion to open procedure. Discussed with loss: 5% of total body weight prior to surgery An informed consent per chart to proceed with laparoscopic vertical gastric slee ve and esophagogastroduodenoscopy The patient understood and was aware of these complications. The patient verbalized understanding and agreed with the plan of care Patient received at least 60 minutes of counseling regarding nutritional guidelines specific for the bariatric surgery patient, we discussed in detail required diet and lifestyle changes that need to be made in order to be successful with weight loss after surgery. The patient has also been educated on multiple other options for weight loss which does not involve surgery, Also patient attended all seminars preoperatively, and All questions have been answered and all concerns have been addressed to patient's satisfaction. Will plan to send a standard preoperative blood work due to the patient's metabolic syndrome prior to bariatric surgery. In the form of CBC CMP complete lipid profile, vitamin D,B levels, coags, hemoglobin A1c, iron, folic acid level. Procedure: Patient was identified in holding area,appropriate pharmacologic DVT prophylaxis was given and preoperative IV fluid hydration, patient was then taken to the operating room where the patient was placed in supine position, intubated by anesthesia prophylactic antibiotics were given per protocol,Time- out was done verifying the patient's name/date of /planned procedure and destination after the procedure, all were in agreement. SCDs confirmed to be functioning, and beta william protocol was confirmed, pharmacologic DVT prophylaxis was administered prior to surgery.A Gale catheter was inserted by t consuelo circulating nurse revealing clear urine. A foot board was applied to secure the patient while the patient is placed in reversed Trendelenburg, all pressure points were padded, and the patient was appropriately secured to the table, anesthesia was asked to rotate the table back and forth to verify that the patient is appropriately secured, and that was the case. The abdomen was prepped and draped under the usual sterile technique. A 1 cm transverse incision was made with a 15 blade scalpel approximately 15 cm below the xiphoid process and 3 cm left of the midline. A 12 mm optical trocar port was placed under direct vision into the peritoneal cavity without evidence of injury to peritoneal structures upon entry. The peritoneal cavity was insufflated with carbon dioxide gas up to 15 mmHg pressure. A 45? angle laparoscopy was placed through the port into the peritoneal cavity there was no significant blood, fluid, or evidence of intra-abdominal injury under direct . A 5 mm trocar port was placed in the left lateral flank and additional 5 mm trocar was inserted midway between the left lateral flank trocar and the initial 12 mm trocar.,a 12 mm trocar port was placed in the right epigastric region and a fourth 5 mm trocar port was placed in the mid epigastric region more caudad than and medial to the previous port. I lifted the omentum up to make sure there were no injuries encountered from the initial trocar insertion and there was not. A subxiphoid stab incision was made and dissection into the peritoneum with 5 mm obturator.A grasping laparoscopic clamp was inserted through here and clamped to the right briana of the diaphragm to elevate The liver for the entirety of the case yet the liver was enlarged and the laparoscopic clamp was not enough to leave the liver appropriate for good exposure .I decided to switch 1 of the lateral 5 mm trochars to a 12 mm to introduce a 10 mm liver fan retractor for better exposure due to the enlarged nature of the liver spite that the patient has been on liquid protein diet. Patient was then placed in the reversed Trendelenburg noticed to have adhesions between the falciform ligament and the omentum. Which was taken down by the harmonic scalpel safely. Following this, the greater curvature of the stomach was freed from the omentum using the harmonic scalpel.This division included the short gastric vessels proximally. This dissection was carried from approximately 4 cm-6 cm proximal to the pylorus and extending all the way up to the angle of Hiss. During this process the posterior aspect of the stomach was mobilized from the underlying peritoneum and the posterior aspect of the stomach was well exposed. With the greater curvature of the stomach exposed from within 4-6 cm of the pylorus and extending to the angle of Hiss, which also included the posterior stomach, a 40 [place]e standard template passed under direct vision down the esophagus, stomach, and into the first part of the duodenum by the anesthesia provider and under direct guidance and visualization by me,via the laparoscopy. Using the template 42 [place]amese aligned along the lesser curvature of the stomach and all the way to the first part of the Duodenum,the 42 [place]amese Bougie was used as a template the laparoscopic vertical gastric sleeve was performed starting from a point about 5 cm from the pylorus along the greater curvature.Using the [place] Laparoscopic ANTWAN linear cutting stapler with Seam guarded enforcement, a series of ivan were used to transect the stomach in a vertical fashion along the left side of the template.,Care was taken not to narrow the angularis. Through the entire division of the stomach using the staplers,the template was always checked to be in good place and well aligned to the lesser curvature while dividing the stomach. This was carried all the way to the angle of Hiss. Green loads were used for all stapler loads. The staple line along the remaining tubularized stomach was tested for leaks and bleeding under direct vision as the bougie template was removed (and there was no evidence of blood on the tip of the template) by a standard diagnostic EGD via the mouth by me after I scrubbed out , insufflation was achieved and the staple line submerged under saline, meanwhile a clamp was applied distally onto the end of the tubularized stomach to allow insufflation test for leak the clamp was held in place by my surgical appliances salesperson. There was no evidence of leak .There was adequate hemostasis along the staple line.EGD was taken out at this point after deflation of the tubularized stomach. At that point I scrubbed back in; The transected partial stomach, which included the greater curvature, was removed from the peritoneum through the first 12 mm trocar site, and was sent for permanent pathology Prior to closure of the fascia. A final look laparoscopy identified no injuries, there was some bleeding from the staple line towards the pylorus I elected to apply 5 mm clips and there was a small tear underlying the inferior surface of the left lobe of the liver hemostasis was achieved and I elected to leave a large piece of Surgicel. An interrupted 0 Vicryl suture on a granny needle suture passer was used to close the right epigastric and the other 12 mm trocars fascial defects under direct visualization.The other trocars were removed under direct vision and no evidence of bleeding was identified. The pneumoperitoneum was decompressed. All skin incisions were irrigated with saline, then closed with ivan, followed by application of sterile dressings. The patient was extubated and transferred to the recovery room with normal vital signs. All counts of instruments and sponges and needles were completed at the end of the procedure I was present for the whole entire procedure
[2019-11-14] MEDS: metoclopramide 5 mg/mL SDV 2 mL 10 MG IVP ×2 (10:20→10:27)
[2019-11-14] MEDS: dexamethasone 4 mg/mL INJ IVP (10:35)
[2019-11-14] MEDS: fentaNYL 50 mcg/mL INJ 2mL IVP ×2 (10:42→10:47)
[2019-11-14 11:38] LABS: Glucose Point of Care 146 mg/dL (70-110)
[2019-11-14] MEDS: morphine 4 mg/mL SDV 1 mL 2 MG IVP ×5 (12:45→22:19)
[2019-11-14] MEDS: famotidine 20 mg/2 mL INJ IVP (15:49)
[2019-11-14] MEDS: sodium chloride 0.9% 1,000 ML 150 ML IV (17:37)
[2019-11-14 20:28] LABS: Glucose Point of Care 147 mg/dL (70-110)
[2019-11-14] MEDS: heparin 5,000 unit/mL INJ 1 mL 5000 UNIT SUBCUT (22:13)
[2019-11-15] VITALS (14 sets, daily range): BP systolic 133–200; BP diastolic 79–112; PULSE 77–99; RESP 12–20; TEMP 36.4–37; O2SAT 90–98
[2019-11-15] MEDS: morphine 4 mg/mL SDV 1 mL 2 MG IVP ×5 (00:13→12:54)
[2019-11-15] MEDS: sodium chloride 0.9% 1,000 ML 150 ML IV ×2 (00:15→06:07)
[2019-11-15] MEDS: famotidine 20 mg/2 mL INJ IVP ×2 (02:41→15:29)
[2019-11-15 04:29] LABS: Hematocrit 32.3 % (37.0-47.0); Hemoglobin 9.5 g/dL (11.5-15.3)
[2019-11-15 04:45] LABS: Anion Gap 15.8 (5-19); Blood Urea Nitrogen 15 mg/dL (6-20); Calcium 7.9 mg/dL (8.5-10.5); Carbon Dioxide 21 mmol/L (22-29); Chloride 107 mmol/L (98-107); Glomerular Filtration Rate 67.7 mL/min (90-130); Glucose 134 mg/dL (65-115); Osmolality Calculated 288 mOsm/kg (285-295); Potassium 3.8 mmol/L (3.5-5.1); Sodium 140 mmol/L (136-145)
--- NOTE | 2019-11-15 05:54 | P.PN_ITS ---
Subjective Subjective: Interval history: Overall patient did well yet she did develop some anxiety overnight and required Xanax p.o. with a sip of water per my order. Good urine output Pain under control Vitals/I&O/Wt Last Vital Signs Temp 98.6 F 11/15/19 04:00 Pulse 77 11/15/19 04:00 Resp 19 H 11/15/19 04:00 BP 155/91 11/15/19 04:00 Pulse Ox 90 11/15/19 04:00 11/14/19 11/14/19 11/15/19 14:59 22:59 06:59 Intake Total 1750 / 1750 100 / 1850 995 / 2845 Output Total 105 / 105 225 / 330 550 / 880 Balance 1645 / 1645 -125 / 1520 445 / 1965 Weight last 48 hrs Weight 261 lb Physical Exam Narrative: EXAM NARRATIVE: Patient is conscious alert oriented X3 BMI 45 Head and neck examination PERRLA no masses no cervical lymphadenopathy no jaundice Cardiac examination audible S1-S2 no murmurs no gallops no arrhythmias Chest is clear bilateral,abscence of Rhonchi or wheezes,no surgical emphysema Abdomen nontender except mildly at the incision sites otherwise dressing is clean dry and intact nondistended soft no organomegaly guarding or rigidity/no signs of peritonitis Extremities no cyanosis no clubbing no edema Urinary Catheter Management^: Gale: Cath Placed During This Visit: yes Reason for Continuing Indwelling Catheter: Required Immobilization for Trauma or Surgery or Anesthesia Urinary Catheter Date of Insertion: 11/14/19 Urinary Catheter Time of Insertion: : Data : 11/16/19 02:10 11/16/19 02:10 A&P Assessment and plan (1) Status post laparoscopic sleeve gastrectomy: 0550 AM We will continue to keep the patient n.p.o. till the upper GI study is being done once that is cleared we will start the patient slowly on clear liquid diet Follow on nutrition service recommendation DC Gale catheter Encourage ambulation 300 to 400 feet down the stokes with assistance 3-4 times a day Incentive spirometer every hour Assurance and education All questions have been answered and all concerns have been addressed to patient's satisfaction. Status: Acute Attestations Medical Necessity Statement*: Medical necessity care is expected to cross 2 midnights Would make sure the patient is tolerating well p.o. intake and continue to have good urine output and pain under control Time Spent in Patient Care: 16 - 35 minutes (>than 50% of time spent in counselling and/or direct pt care on unit) . Coding Level of Care Code Acute Tubing Machine Operator for Chg Fwd Diagnoses Status post laparoscopic sleeve gastrectomy Z98.84
[2019-11-15] MEDS: heparin 5,000 unit/mL INJ 1 mL 5000 UNIT SUBCUT ×3 (06:07→22:33)
[2019-11-15 06:29] LABS: Glucose Point of Care 139 mg/dL (70-110)
--- NOTE | 2019-11-15 08:00 | FL_ITS ---
WS: [id number] UPPER GI TECHNICAL: Single contrast Gastrografin FLUOROSCOPY TIME: 1 minutes CLINICAL INFORMATION: Status Post Gastric Sleeve COMPARISON: None. FINDINGS: Early Postoperative gastric sleeve procedure. Normal swallowing. Normal esophageal emptying. No evide nce of gastric leak. Normal filling of the proximal duodenum. FL/FL upper GI series 24600 IMPRESSION: Postoperative gastric sleeve. No evidence of leak.
--- NOTE | 2019-11-15 09:16 | PC.NUTR ---
NUTR EDUCATION CONSULT: Consult received for post sleeve. Spoke with pt in room. Reported soreness, 46 lbs wt loss in 14 months prior to procedure. Walked 3 laps last night, 1000 ft this morning. Observed clear liquid tray in room, pt reported not cleared for liquids just yet. Informed CHOIR MEMBER and Dr about unapproved advanced diet. Discussed diet progression for the next 14 days. Pt reported understanding. Will f/u in 1 week.
--- NOTE | 2019-11-15 09:49 | PC.CHAP ---
Pastoral Care Encounter/Spiritual Assessment Type of Contact [] Declined toxicology teacher visit [] Patient/Family/Request visit [] Outpatient visit [] Follow-up visit [] Physician referral [] Code/Alert [] Routine visit [] Staff referral [] Actively dying [] Patient sleeping [] Family support [] [x] Out of room [] Palliative care [] [] Receiving care in room [] Pre-surgical visit [] Trauma [] Long length of stay [] ICU visit [] Other: Relational/Emotional Strength [] Patient feels connected with others/family/visitors/staff [] Distress [] Loneliness/isolation [] Abandonment Spirituality of Patient [] Person of P[place]a [] Attends Protestant of their [place] [] Believes in Prayer [] Reads Bible or Baptist materials [] There are Spiritual issues to be addressed Foot Piece Assembler Interventions [] Prayer [] Active listening [] Non-anxious presence [] Spiritual/emotional support [] Crisis/trauma care [] Spiritual counseling [] Bereavement support [] Provided bereavement packet [] Provided Bible/devotional materials [] Provided toy/stuffed animal, coloring book to patient or family member [] Provided Communion [] Anointing/[place] [] Salvation [] Completed spiritual assessment [] Other: Impact on Illness or Injury [] Angry [] Fearful [] Anxious [] Often cries [] Exhaustion [] Unable to work [] Unable to attend mosque [] Unable to walk/stand [] Unable to read [] Unable to drive [] Unable to eat/drink [] Unable to sleep [] Unable to be with family [] Patient intubated [] Other: Summary Time spent with patient
[2019-11-15] MEDS: ondansetron 2 mg/ML SDV 2 mL 4 MG IVP ×2 (10:29→19:06)
[2019-11-15] MEDS: HYDROcodone-acetaminophen 10-325 mg Tablet 1 TAB PO ×2 (10:29→17:05)
[2019-11-15] MEDS: labetalol 5 mg/mL SDV 20mL 10 MG IVP (10:55)
[2019-11-15] MEDS: lisinopril 20 mg Tablet 30 MG PO (10:55)
[2019-11-15 10:59] LABS: Glucose Point of Care 100 mg/dL (70-110)
[2019-11-15] MEDS: metoprolol tartrate 50 mg Tablet 100 MG PO ×2 (15:28→20:08)
[2019-11-15 17:05] LABS: Glucose Point of Care 106 mg/dL (70-110)
[2019-11-15] MEDS: cloNIDine 0.1 mg Tablet 0.2 MG PO (17:05)
[2019-11-15] MEDS: sodium chloride 0.9% 1,000 ML 75 ML IV (17:05)
[2019-11-15] MEDS: morphine 4 mg/mL SDV 1 mL IVP ×2 (19:06→22:28)
[2019-11-15 20:52] LABS: Glucose Point of Care 161 mg/dL (70-110)
[2019-11-16] VITALS (8 sets, daily range): BP systolic 142–170; BP diastolic 86–94; PULSE 70–89; RESP 14–20; TEMP 36.4–36.9; O2SAT 91–95
[2019-11-16] MEDS: HYDROcodone-acetaminophen 10-325 mg Tablet 1 TAB PO (01:35)
--- NOTE | 2019-11-16 02:39 | XRR_ITS ---
PROCEDURE INFORMATION: Exam: XR Pelvis Exam date and time: 11/16/2019 6:23 AM Age: 44 years old Clinical indication: Injury or trauma; Fall; Initial encounter; Blunt trauma (contusions or hematomas); Bilateral; Hip; Additional info: Patient fell TECHNIQUE: Imaging protocol: XR pelvis. Views: 1 or 2 view. COMPARISON: CT abdomen pelvis w con* [id number] 03/04/2019 8:47 AM FINDINGS: Bones/joints: No fractures or dislocations identified. No significant bony abnormality identified. Soft tissues: No subcutaneous gas or radiopaque foreign body identified. XR/XR pelvis 1-2V* [id number] IMPRESSION: 1. No fractures or dislocations identified.
[2019-11-16 02:47] LABS: Hematocrit 34.3 % (37.0-47.0)
[2019-11-16 03:16] LABS: Anion Gap 15.7 (5-19); Blood Urea Nitrogen 13 mg/dL (6-20); Calcium 8.7 mg/dL (8.5-10.5); Carbon Dioxide 22 mmol/L (22-29); Chloride 104 mmol/L (98-107); Glucose 109 mg/dL (65-115); Osmolality Calculated 283 mOsm/kg (285-295); Potassium 3.7 mmol/L (3.5-5.1); Sodium 138 mmol/L (136-145)
[2019-11-16] MEDS: morphine 4 mg/mL SDV 1 mL IVP ×2 (03:39→07:41)
[2019-11-16] MEDS: famotidine 20 mg/2 mL INJ IVP (03:39)
[2019-11-16] MEDS: heparin 5,000 unit/mL INJ 1 mL 5000 UNIT SUBCUT (05:05)
--- NOTE | 2019-11-16 05:12 | PC.NURSE ---
Post Fall RE-Assessment
--- NOTE | 2019-11-16 06:24 | PM.PN ---
Subjective Subjective: Interval history: Overall patient is doing well and her blood pressure is been better controlled after resuming her home medication Patient per report of her caring nurse that she did fall on her buttocks but she continued to be appropriately ambulating without discomfort Wrist x-ray ordered to rule out potential fractures. Upper GI study was done yesterday and showed: Early Postoperative gastric sleeve procedure. Normal swallowing. Normal esophageal emptying. No evidence of gastric leak. Normal filling of the proximal duodenum. FL/FL upper GI series [id number] IMPRESSION: Postoperative gastric sleeve. No evidence of leak. Vitals/I&O/Wt Last Vital Signs Temp 97.6 F 11/16/19 04:00 Pulse 73 11/16/19 04:00 Resp 18 11/16/19 04:00 BP 150/91 11/16/19 04:00 Pulse Ox 93 11/16/19 04:00 11/15/19 11/15/19 11/16/19 14:59 22:59 06:59 Intake Total 1000 / 1000 100 / 1100 Output Total 250 / 250 600 / 850 Balance 1000 / 1000 -150 / 850 -600 / 250 Physical Exam Narrative: EXAM NARRATIVE: Patient is conscious alert oriented X3 BMI 45 Head and neck examination PERRLA no masses no cervical lymphadenopathy no jaundice Cardiac examination audible S1-S2 no murmurs no gallops no arrhythmias Chest is clear bilateral,abscence of Rhonchi or wheezes,no surgical emphysema Abdomen nontender except mildly at the incision site nondistended soft no organomegaly guarding or rigidity/no signs of peritonitis/incisions are clean dry intact and skin ivan in place Bony pelvic examination stable in AP and lateral position showed no tenderness and patient moving all extremities Extremities no cyanosis no clubbing no edema Urinary Catheter Management^: Gale: Cath Placed During This Visit: yes, but has since been removed by the nurse Reason for Continuing Indwelling Catheter: Decision to DC Catheter Urinary Catheter Date of Insertion: 11/14/19 Urinary Catheter Time of Insertion: 07: Date Urinary Catheter Removed: 11/15/19 Time Urinary Catheter Discontinued: 05:50 Data : 11/16/19 02:10 11/16/19 02:10 A&P Assessment and plan (1) Status post laparoscopic sleeve gastrectomy: 06:10 AM We will continue clear liquid diet Repeated physical exam and will follow on the pelvis x-ray Follow on nutrition service recommendation Encourage ambulation 300 to 400 feet down the stokes with assistance 3-4 times a day Incentive spirometer every hour Patient continues to do well we will plan to DC home today Assurance and education All questions have been answered and all concerns have been addressed to patient's satisfaction. Status: Resolved Attestations Medical Necessity Statement*: Medical necessity care is expected to cross 2 midnights Coding Level of Care Code Acute Galvanometer Assembler for Chg Fwd Diagnoses Status post laparoscopic sleeve gastrectomy Z98.84
[2019-11-16 06:38] LABS: Glucose Point of Care 102 mg/dL (70-110)
--- NOTE | 2019-11-16 08:40 | P.DS_ITS ---
Discharge Providers Date of Admission: 11/14/19 05:30 Date of Discharge: November 16, 2019 Attending Provider at Admission: Sulaiman Sarabia MD Attending Provider at Discharge: Sulaiman Sarabia MD Primary Care Provider: CARITO Lyons Diagnoses at Discharge Discharge Diagnosis (1) Status post laparoscopic sleeve gastrectomy: Status: Resolved Reason for Visit Reason for Visit: Obesity Hospital Course Discharge Summary: This is a pleasant 44 years old female patient undergone uneventful laparoscopic vertical sleeve gastrectomy for morbid obesity and associated multiple medical comorbidities with a history of the metabolic syndrome . Patient overall did well and she continued to demonstrate tolerance to liquid p.o. intake following unremarkable upper GI study status post gastric sleeve . Patient showed uncontrolled hypertension likely due to rebound hypertension because of clonidine being held but she was given IV antihypertensive medication and once patient resumed p.o. intake all her home medications were resumed and a better control of blood pressure was appreciated . Also patient did encounter some anxiety and her home medications helped to alleviate that. Unfortunately during her hospital stay she fell on her hip but she did not recall which side in spite of the risk fall precautions, and I elected to perform a pelvis x-ray that showed: bones/joints: No fractures or dislocations identified. No significant bony abnormality identified. Soft tissues: No subcutaneous gas or radiopaque foreign body identified. XR/XR pelvis 1-2V* [id number] IMPRESSION: 1. No fractures or dislocations identified. Patient continues to tolerate p.o. intake with good urine output and being ambulatory without assistance, her blood pressure under control as well as her pain. We will plan to discharge home today and have her follow-up with me at the weight loss surgery office in 1 week. We will plan to discharge patient on Lovenox 40 mg subcutaneous daily for 10 days to prevent potential DVT and highly encouraged the patient to follow-up with her pain clinic providers to adjust her home pain medications yet in the interim I will prescribe oxycodone 5 mg every 6 hours as needed for breakthrough pain I will also provide the patient with Zofran and scopolamine patches for nausea. Physical Exam Narrative: EXAM NARRATIVE: Patient is conscious alert oriented X3 BMI 45 Head and neck examination PERRLA no masses no cervical lymphadenopathy no jaundice Cardiac examination audible S1-S2 no murmurs no gallops no arrhythmias Chest is clear bilateral,abscence of Rhonchi or wheezes,no surgical emphysema Abdomen nontender nondistended soft no organomegaly guarding or rigidity/no sign s of peritonitis Extremities no cyanosis no clubbing no edema Urinary Catheter Management^: Gale: Cath Placed During This Visit: yes, but has since been removed by the nurse Reason for Continuing Indwelling Catheter: Decision to DC Catheter Urinary Catheter Date of Insertion: 11/14/19 Urinary Catheter Time of Insertion: 07:30 Date Urinary Catheter Removed: 11/15/19 Time Urinary Catheter Discontinued: 05:50 Discharge Data Data Completed and Pending: Completed Studies During Hospitalization Category Date Time Status [place] [id number] Routine Exams 11/15/19 08:00 Completed XR pelvis 1-2V* 7 2170 Routine Exams 11/16/19 02:39 Completed Pathology: Surgic al [PTH] Routine Pth 11/14/19 10:12 Completed Pending at discharge Category Date Time Status ES surgery / GI i mages Routine Exams 11/14/19 06:39 Taken Labs from last 24 hours 11/16/19 11/16/19 11/16/19 06:25 02:10 02:10 Hgb 10.0 L Hct 34.3 L Sodium 138 Potassium 3.7 Chloride 104 Carbon Dioxide 22 Anion Gap 15.7 BUN 13 Creatinine 1.0 H GFR Calculation 60.0 L Glucose 109 POC Glucose 102 Calculated Osmolal ity 283 L Calcium 8.7 11/15/19 11/15/19 11/15/19 20:39 16:58 10:51 Hgb Hct Sodium Potassium Chloride Carbon Dioxide Anion Gap BUN Creatinine GFR Calculation Glucose POC Glucose 161 106 100 Calculated Osmolal ity Calcium Vitals: Last Vital Signs Temp 98.4 F 11/16/19 08:00 Pulse 80 11/16/19 08:00 Resp 20 H 11/16/19 08:00 BP 170/90 11/16/19 08:00 Pulse Ox 91 11/16/19 08:00 Discharge Plan Discharge Patient Disposition: Home, Self-Care Condition: Stable Prescriptions: New enoxaparin 40 mg/0.4 mL syringe 40 mg SUBCUT DAILY 10 Days Qty: 4 RF: 0 scopolamine base 1 mg over 3 days patch 3 day 1 patch TRANSDERMA Q3D PRN (Reason: nausea and vomiting) 12 Days Qty: 4 RF: 0 Zofran 4 mg tablet 4 mg PO Q6H Qty: 20 RF: 0 oxycodone 5 mg tablet 5 mg PO Q8H PRN (Reason: pain) Qty: 25 RF: 0 Continued omeprazole 40 mg PO DAILY RF: 0 furosemide [Lasix] 20 mg tablet 60 mg PO DAILY RF: 0 hydrocodone-acetaminophen 10-325 mg tablet 1 tab PO Q4H PRN (Reason: pain) RF: 0 gabapentin [Neurontin] 800 mg tablet 800 mg PO TID RF: 0 amitriptyline 75 mg tablet 75 mg PO DAILY Qty: 30 RF: 3 aripiprazole [Abilify] 15 mg tablet 15 mg PO DAILY Qty: 30 RF: 3 bupropion HCl [Wellbutrin XL] 300 mg tablet extended release 24 hr 300 mg PO QAM Qty: 30 RF: 3 topiramate [Topamax] 50 mg tablet 50 mg PO BID Qty: 60 RF: 3 triazolam 0.25 mg tablet 0.375 mg PO .at bedtime Qty: 45 RF: 2 alprazolam 1 mg tablet 1 mg PO TID PRN (Reason: anxiety) Qty: 90 RF: 2 metoprolol tartrate 100 mg tablet 100 mg PO TID RF: 0 lisinopril 20 mg tablet 30 mg PO DAILY RF: 0 clonidine HCl 0.2 mg tablet 0.2 mg PO BID RF: 0 oxycodone [OxyContin] 30 mg tablet,oral only,ext.rel.12 hr 30 mg PO BID RF: 0 Discharge Orders: Discharge Order (Routine); Ordered 11/16/19 Ordered By: Sulaiman Sarabia Referrals: Sulaiman Sarabia MD [Physician] - 11/22/19 1:15 pm (Return to Bariatric surgery office in 1 week. You have an appointment on November 21 at 1:15.) Patient Instructions: Scopolamine (Absorbed through the skin), Oxycodone/Acetaminophen (By mouth), Ondansetron (By mouth), Enoxaparin (Injection), Laparoscopic Sleeve Gastrectomy (DC) Activity Restrictions/Additional Instructions: 1. Patient can shower after 48 hours from surgery 2. Keep incisions open to air without cover 3. Up and walking as tolerated 4. Do lift more than 5 pounds first 2 weeks after surgery and not more than 25 pounds 6 to 8 weeks after surgery. 5. Do not operate heavy machinery or drive while using pain medications. 6.Contact the office or return to the ER for worsening nausea vomiting fevers or chills, or noticing any redness around incision sites or discharge. 7. Follow on hydrogenation still operator recommendations 8. Start Lovenox self administer medication tomorrow 9. Avoid constipation 10. Do not chew gum, use straws or drink soda. Discharge Date/Time: 11/16/19 11:51 Discharge Attestations Time Spent in Discharge Care*: greater than 30 min Specific Discharge Activities: Specific discharge activities: educating patient, educating and/or supporting family/caregiver and evaluating patient/reviewing data Status at Discharge: Cognitive status at discharge: cognitively intact , Behavioral status at discharge: cooperative , Functional status at discharge: independent ambulation Overall status at discharge: patient is progressing back to baseline Quality Metrics Clinical Quality Measures During this hospital stay, did patient experience: None Coding Level of Care Code Acute Educational Interpreter for Chg Fwd Diagnoses Status post laparoscopic sleeve gastrectomy Z98.84
[2019-11-16] MEDS: lisinopril 20 mg Tablet 30 MG PO (09:56)
[2019-11-16] MEDS: metoprolol tartrate 50 mg Tablet 100 MG PO (09:56)
[2019-11-16] MEDS: cloNIDine 0.1 mg Tablet 0.2 MG PO (09:57)
== END 2019-11-16 11:51 | disposition home or self-care (01) | DRG 621 ==
LOC: OR 06:27 → MEDSURG 10:48
PROVIDERS: Admitting Provider Surgery; PCP Nurse Practitioner; Visit Provider Surgery
PROC: 0DB64Z3 Excision of Stomach, Percutaneous Endoscopic Approach, Vertical (ICD-10-PCS; CPT 43775; principal; 2019-11-14 07:00)
PROC: 0DJ08ZZ Inspection of Upper Intestinal Tract, Via Natural or Artificial Opening Endoscopic (ICD-10-PCS; CPT 43235; 2019-11-14 07:00)
DX: E66.01 Morbid (severe) obesity due to excess calories (principal); Z91.81 History of falling; Z68.42 Body mass index [BMI] 45.0-49.9, adult; G47.30 Sleep apnea, unspecified; K21.9 Gastro-esophageal reflux disease without esophagitis; I10 Essential (primary) hypertension; F43.10 Post-traumatic stress disorder, unspecified; F41.1 Generalized anxiety disorder; F31.9 Bipolar disorder, unspecified
CPT/HCPCS: 12345; 36415; 36416; 43235; 51702; 72170; 74240; 80048; 82962; 85014; 85018; 88309; 96365; 96372; 96374; 96375; C9113; J0131; J0690; J1100; J1644; J2001; J2270; J2370; J2405; J2704; J2710; J2765; J3010; J3490; J7030

== ENCOUNTER 2020-04-24 21:51 | Inpatient (IN) | payer MEDICARE, MEDICAID, SELFPAY ==
[2020-04-24 22:00] VITALS: BP 157/127; PULSE 108; RESP 18; TEMP 36.7; O2SAT 96; BMI 39.4
--- NOTE | 2020-04-24 22:15 | XR_ITS ---
WS: [id number] XR chest 1V portable [id number] REASON FOR EXAM: Chest pain FINDINGS: The chest is unchanged compared to 08/04/2019. Mild tortuosity of the thoracic aorta without dilatation. Normal heart size. No active pulmonary parenchymal or pleural disease. Degenerative changes in the right shoulder and thoracic spine. XR/XR chest 1V portable [id number] IMPRESSION: No acute chest abnormality.
--- NOTE | 2020-04-24 22:15 | ECG_ITS ---
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 Measurements Intervals [place] Rate: 114 P: 57 NH: 126 QRS: 72 QRSD: 71 T: 44 QT: 339 QTc: 467 Interpretive Statements SINUS TACHYCARDIA ABNORMAL RHYTHM ECG Compared to ECG 08/04/2019 19:46:14 Sinus rhythm no longer present Electronically Signed On 04-25-2020 21:24:01 PHYSICAL THER by Ines Romero M.D. [id number]
--- NOTE | 2020-04-24 22:25 | ED_ITS ---
HPI - Chest Pain General: Chief Complaint: Chest Pain Stated Complaint: chest pain,SOB,vomiting,chronic migraine Time Seen by Provider: 04/24/20 22:09 Source: patient Mode of arrival: ambulatory Limitations: no limitations History of Present Illness: HPI narrative: Abena is a very nice 44-year-old female who comes in with multiple complaints. Her primary complaint is that of chest pain. Patient states that she has had for a week or more shortness of breath and chest pain when she exerts herself. She states she cannot do anything more than 10 to 15 feet before getting a chest tightness. Along with this she gets sick to her stomach but does not throw up. She, short of breath and the discomfort radiates to her right arm. She states her symptoms resolved with rest but then again any type of exertion causes them to return. Tonight she had the symptoms as well as nausea, vomiting and dizziness. Patient describes the pain as a squeezing in her chest. She denies having anything like this in the past. Patient has a history of high blood pressure that is difficult to control and a family history of heart disease. She denies ever being a smoker. Associated symptoms: Deny abdominal pain, diaphoresis, fever(s), palpitations or syncope Review of Systems Const: Denies: fever(s), chills, body aches, fatigue, malaise or diaphoresis Eyes: Denies: change in vision, blurry vision, photophobia, eye discomfort, eye discharge, eye redness or yellow eyes ENMT: Denies: throat pain, odynophagia, hoarseness, swelling of lips/tongue, ear or mastoid pain, ear discharge, change in hearing or nasal discharge Card: Reports: chest pain, swelling of feet/ankles and dyspnea on exertion; Denies: palpitations, irregular heart rhythm, edema, lightheadedness, syncope, pre-syncope or orthopnea Resp: Denies: productive cough, non-productive cough, wheezing, hemoptysis or chest congestion GI: Denies: abdominal pain, hematemesis, coffee ground emesis, heartburn, diarrhea, constipation, GI cramping, hematochezia or melena : Denies: flank pain, dysuria, urinary frequency, urinary urgency or hematuria Musc: Denies: neck pain, back pain, extremity pain, extremity swelling, joint pain, joint swelling, joint redness, joint warmth or joint stiffness Skin/Breast: Denies: rash, pruritus, erythema, skin pain or skin tenderness Neuro: Reports: headache(s); Denies: numbness in extremities, weakness in extremities, sensory changes, lack of coordination, difficulty walking, dizziness, vertigo, confusion, Slurred speech present or seizure-like activity Bonifacio/Lymph: Denies: easy bruising, easy bleeding, petechiae, purpura or enlarged lymph nodes All/Imm: Denies: urticaria, throat swelling, tongue swelling, facial swelling or acute wheezing PFSH ED PFSH: Medical History (Updated 04/25/20 @ 02:04 by Wilfrido Padron MD) Bipolar disorder Bipolar disorder, current episode depressed, moderate Generalized anxiety disorder GERD (gastroesophageal reflux disease) Hypertension Migraine headache Morbid obesity PTSD (post-traumatic stress disorder) Sleep apnea Surgical History History of cholecystectomy in 2012 History of colonoscopy History of esophagogastroduodenoscopy (EGD) History of hysterectomy 2012, done due to endometriosis Family History Mother Anesthesia complication Denies family history of Bleeding disorder Social History Smoking and tobacco status: never smoked Alcohol intake: former Lives independently: Yes Household members: children Current occupational status: disabled History of recent travel: No Physical Exam Const: COMMON NORMALS: no acute distress, patient oriented x3, no limitations and alert GENERAL APPEARANCE: cooperative HENMT: COMMON NORMALS: normocephalic, atraumatic, external ears normal, EAC's normal and Normal external nose present HEAD & SCALP: normal to inspection, normocephalic and atraumatic FACE & SINUS: normal facial exam and face symmetric NOSE: Normal external nose present and Normal nares present EXTERNAL EAR: Yes external ears normal EXTERNAL AUDITORY CANAL: EAC's normal MOUTH: Normal oral and palatal mucosa present, lip normal and tongue normal Eye: COMMON NORMALS: Equal, round and reactive pupils present and conjunctivae normal GENERAL EYE: appearance normal, both eyes and all related structures ALIGNMENT: Yes alignment normal PERIORBITAL: periorbital findings normal EYELID: eyelids normal CONJUNCTIVA: Yes conjunctivae normal SCLERA: sclerae normal PUPIL: Yes Equal, round and reactive pupils present Neck/C-Spine: COMMON NORMALS: full ROM, no lymphadenopathy, supple, no meningeal signs and no JVD GENERAL: Yes normal visual inspection and Yes trachea midline Chest: COMMONS NORMALS: normal inspection of the chest and normal palpation of entire chest wall Resp: COMMON NORMALS: normal respiratory effort, No retractions, No use of accessory muscles and clear to auscultation bilaterally EFFORT & INSPECTION: Yes able to speak in complete sentences and Yes symmetric chest movement AUSCULTATION: clear to auscultation bilaterally, no crackles, no rales, no rhonchi and no wheezes Cardio: COMMON NORMALS: no JVD, regular rate, regular rhythm, S1 normal heart sound present and S2 normal heart sound present RATE: regular rate RHYTHM: regular rhythm HEART SOUNDS: S1 normal heart sound present, S2 normal heart sound present, no click, no gallops, no murmurs and no rubs GI: COMMON NORMALS: Soft to palpation and No hepatosplenomegaly present PALPATION: Yes Soft to palpation, No Tenderness to palpation present (GI), No Guarding due to palpation present (GI), No Rigid due to palpation, Yes No hepatosplenomegaly present, No Hernia present, No Palpable mass present and No Pulsatile mass present : COMMON NORMALS: Yes no CVA tenderness BLADDER/KIDNEY EXAM: Yes no CVA tenderness EXTERNAL FEMALE EXAM: No Hernia present Back/Pelvis: COMMON NORMALS: no CVA tenderness, thoracic and lumbar spine normal to inspection, no thoracic nor lumbar tenderness and thoraco-lumbar ROM normal Extremity: COMMON NORMALS: normal to inspection, full ROM, capillary refill normal, no joint enlargement, no clubbing, cyanosis or edema and no calf tenderness Neuro: COMMON NORMALS: patient oriented x3, CN's II-XII intact bilaterally, moves all extremities, no focal motor deficits and no sensory deficits noted SENSORIUM/ORIENTATION: Yes alert MENINGEAL SIGNS: Yes no meningeal signs SPEECH: speech normal Psych: COMMON NORMALS: mental status grossly normal, Normal thought process present, cooperative, normal affect, speech normal and activity/motor behavior normal SPEECH: Yes normal speech THOUGHT PROCESS: Normal thought process present Skin: COMMON NORMALS: no rashes or lesions noted, turgor normal, no jaundice, no petechiae and no mottling GENERAL SKIN EXAM: no rashes or lesions noted and turgor normal Course Vital Signs: Vital signs: Vital Signs Temperature 97.4 F L 04/25/20 02:29 Pulse Rate 101 H 04/25/20 03:00 Respiratory Rate 32 H 04/25/20 03:00 Blood Pressure 149/97 04/25/20 03:00 Pulse Oximetry 93 04/25/20 03:00 MDM - Chest Pain MDM Narrative: Medical decision making narrative: Mrs. Galan is a nice 44-year-old female who comes in with multiple complaints. Of all her complaints the pain in her chest is the most significant. Her vital signs are stable except for she is tachycardic. She describes the pain as a tight squeezing pain with associated vomiting and anytime she exerts herself she gets short of breath. Her heart score is 5. Based upon this and her ongoing pain I believe she should be admitted for cardiac rule out. Patient was endorsed to Dr. Padron he agrees to come and see and evaluate the patient. Lab Data: Attestation: I reviewed the patient's lab results. Labs: Lab Results 04/24/20 04/24/20 04/24/20 Range/Units 23:15 23:15 23:15 WBC 9.0 (4.0-10.0) 10^3/ uL RBC 4.20 (4.1-5.3) 10^6/u L Hgb 10.8 L (11.5-15.3) g/dL Hct 34.7 L (37.0-47.0) % MCV 82.6 (81-99) fL MCH 25.7 L (28.0-34.0) pg MCHC 31.1 (30.0-36.0) g/dL RDW 15.5 H (12.1-15.1) % Plt Count 363 (130-400) 10^3/c mm MPV 10.7 H (7.4-10.4) fL Neut % (Auto) 60.9 % Lymph % (Auto) 29.8 % Elliott % (Auto) 6.5 % Eos % (Auto) 2.2 % Baso % (Auto) 0.4 % Neut # (Auto) 5.48 (1.8-7.7) 10^3/u L Lymph # (Auto) 2.7 (0.8-4.8) 10^3/u L Elliott # (Auto) 0.6 (0.2-0.9) 10^3/u L Eos # (Auto) 0.2 (0.0-0.8) 10^3/u L Baso # (Auto) 0.0 (0.0-0.1) 10^3/u L Nucleated RBC % (a uto) 0 % Nucleated RBCs # 0.0 /100WBC D-Dimer 0.46 (0-0.59) ug/mIFE U Sodium 142 (136-145) mmol/L Potassium 4.1 (3.5-5.1) mmol/L Chloride 107 (98-107) mmol/L Carbon Dioxide 27 (22-29) mmol/L Anion Gap 12.1 (5-19) BUN 16 (6-20) mg/dL Creatinine 1.2 H (0.5-0.9) mg/dL GFR Calculation 48.6 L (90-130) mL/min Glucose 118 H (65-115) mg/dL Calculated Osmolal ity 296 H (285-295) mOsm/k g Calcium 9.2 (8.5-10.5) mg/dL Magnesium 2.1 (1.7-2.3) mg/dL Total Bilirubin 0.2 (0.15-1.2) mg/dL AST 24 (0-32) U/L ALT 14 (0-33) U/L Alkaline Phosphata se 139 H (35-105) IU/L Troponin T Baselin e (0-10) ng/L Troponin T 120 Min noah (0-10) ng/L Delta Troponin T (0-10) ABS# Total Protein 6.2 L (6.6-8.7) g/dL Albumin 3.7 (3.5-5.2) g/dL Globulin 2.5 (1.3-4.6) g/dL Lipase 17 (13-60) U/L HCG, Qual (Negative) 04/24/20 04/24/20 04/25/20 Range/Units 23:15 23:15 00:25 WBC (4.0-10.0) 10^3/ uL RBC (4.1-5.3) 10^6/u L Hgb (11.5-15.3) g/dL Hct (37.0-47.0) % MCV (81-99) fL MCH (28.0-34.0) pg MCHC (30.0-36.0) g/dL RDW (12.1-15.1) % Plt Count (130-400) 10^3/c mm MPV (7.4-10.4) fL Neut % (Auto) % Lymph % (Auto) % Elliott % (Auto) % Eos % (Auto) % Baso % (Auto) % Neut # (Auto) (1.8-7.7) 10^3/u L Lymph # (Auto) (0.8-4.8) 10^3/u L Elliott # (Auto) (0.2-0.9) 10^3/u L Eos # (Auto) (0.0-0.8) 10^3/u L Baso # (Auto) (0.0-0.1) 10^3/u L Nucleated RBC % (a uto) % Nucleated RBCs # /100WBC D-Dimer (0-0.59) ug/mIFE U Sodium (136-145) mmol/L Potassium (3.5-5.1) mmol/L Chloride (98-107) mmol/L Carbon Dioxide (22-29) mmol/L Anion Gap (5-19) BUN (6-20) mg/dL Creatinine (0.5-0.9) mg/dL GFR Calculation (90-130) mL/min Glucose (65-115) mg/dL Calculated Osmolal ity (285-295) mOsm/k g Calcium (8.5-10.5) mg/dL Magnesium (1.7-2.3) mg/dL Total Bilirubin (0.15-1.2) mg/dL AST (0-32) U/L ALT (0-33) U/L Alkaline Phosphata se (35-105) IU/L Troponin T Baselin e 12 H (0-10) ng/L Troponin T 120 Min noah 10.83 H (0-10) ng/L Delta Troponin T -1.17 L (0-10) ABS# Total Protein (6.6-8.7) g/dL Albumin (3.5-5.2) g/dL Globulin (1.3-4.6) g/dL Lipase (13-60) U/L HCG, Qual Negative (Negative) Imaging Data^: CXR: Attestation: I personally reviewed and interpreted this imaging study as follows: My impression: No acute cardiopulmonary findings. EKG Data^: EKG 1: Attestation: I personally reviewed and interpreted this EKG as follows: EKG interpretation date: 04/24/20 EKG interpretation time: 21:59 Interpretation: Sinus tachycardia to 108 beats a minute, normal axis, no blocks, but intervals, possible arm lead reversal. No acute ST-T wave changes. EKG 2: Attestation: I personally reviewed and interpreted this EKG as follows: EKG interpretation date: 04/24/20 EKG interpretation time: 23:44 Interpretation: Sinus tachycardia at 114 beats a minute, normal axis, no blocks, normal intervals, no acute ST-T wave changes. EKG 3: Attestation: I personally reviewed and interpreted this EKG as follows: EKG interpretation date: 04/25/20 EKG interpretation time: 02:11 Interpretation: Normal sinus rhythm with normal rate. No blocks, normal intervals, no acute ST-T wave changes. Discharge Plan Discharge Patient Disposition: Placed in Observation Admit Provider: Wilfrido Padron Clinical Impression: Chest pain Qualifiers: Chest pain type: unspecified Qualified Code(s): R07.9 - Chest pain, unspecified Coding Level of Care Code ED Branch Store Manager for Chg Fwd Exam Comprehensive
[2020-04-24 23:37] VITALS: BP 174/98; PULSE 104; RESP 23; O2SAT 96
[2020-04-24 23:37] LABS: Basophils % 0.4 %; Eosinophils # 0.2 10^3/uL (0.0-0.8); Eosinophils % 2.2 %; Hematocrit 34.7 % (37.0-47.0); Hemoglobin 10.8 g/dL (11.5-15.3); Lymphocytes # 2.7 10^3/uL (0.8-4.8); Lymphocytes % 29.8 %; Mean Corpuscular HGB Conc 31.1 g/dL (30.0-36.0); Mean Corpuscular Hemoglobin 25.7 pg (28.0-34.0); Mean Corpuscular Volume 82.6 fL (81-99); Mean Platelet Volume 10.7 fL (7.4-10.4); Monocytes # 0.6 10^3/uL (0.2-0.9); Monocytes % 6.5 %; Neutrophils # 5.48 10^3/uL (1.8-7.7); Neutrophils % 60.9 %; Nucleated Red Blood Cells % 0 %; Platelet Count 363 10^3/cmm (130-400); Red Cell Distribution Width 15.5 % (12.1-15.1)
[2020-04-24] MEDS: nitroglycerin 0.4 mg sublingual Tablet SUBLINGUAL (23:37)
--- NOTE | 2020-04-24 23:39 | PC.NURSE ---
verified nitro dose with nitro dose q5 x3. Pt refused reglan
--- NOTE | 2020-04-24 23:47 | PC.NURSE ---
EKG done at 2345 and shown to ER doctor
[2020-04-24 23:48] LABS: D Dimer 0.46 ug/mIFEU (0-0.59)
[2020-04-24 23:51] VITALS: BP 189/89; PULSE 112; RESP 25; O2SAT 96
[2020-04-24 23:58] LABS: Alanine Aminotransferase 14 U/L (0-33); Albumin Level 3.7 g/dL (3.5-5.2); Alkaline Phosphatase 139 IU/L (35-105); Anion Gap 12.1 (5-19); Aspartate Amino Transferase 24 U/L (0-32); Blood Urea Nitrogen 16 mg/dL (6-20); Calcium 9.2 mg/dL (8.5-10.5); Carbon Dioxide 27 mmol/L (22-29); Chloride 107 mmol/L (98-107); Globulin 2.5 g/dL (1.3-4.6); Glomerular Filtration Rate 48.6 mL/min (90-130); Glucose 118 mg/dL (65-115); Lipase 17 U/L (13-60); Magnesium 2.1 mg/dL (1.7-2.3); Osmolality Calculated 296 mOsm/kg (285-295); Potassium 4.1 mmol/L (3.5-5.1); Sodium 142 mmol/L (136-145); Total Bilirubin 0.2 mg/dL (0.15-1.2); Total Protein 6.2 g/dL (6.6-8.7)
[2020-04-25] VITALS (101 sets, daily range): BP systolic 97–220; BP diastolic 62–135; PULSE 71–130; RESP 7–32; TEMP 36.3–37.1; O2SAT 86–98
[2020-04-25 00:01] LABS: Troponin(5th) Baseline 12 ng/L (0-10)
[2020-04-25 00:11] LABS: HCG, Serum Qual Negative (Negative)
[2020-04-25] MEDS: ondansetron 2 mg/ML SDV 2 mL 4 MG IVP ×2 (00:15→12:44)
[2020-04-25] MEDS: morphine 4 mg/mL SDV 1 mL IVP ×6 (00:30→19:59)
--- NOTE | 2020-04-25 00:30 | PC.NURSE ---
Nurse at bedside
--- NOTE | 2020-04-25 00:41 | PM.HP ---
Providers/Chief Complaint Primary Care Provider: CARITO Lyons Chief Complaint: chest pain,SOB,vomiting,chronic migraine History of Present Illness Abena Galan is a 44 year old female who has significant history of depression, bipolar disorder, sleep apnea, PTSD noncompliant with CPAP due to claustrophobia presented today with chief complaint of chest discomfort. Patient is stating that she was setting up [employer] when she started experiencing pressure-like sensation substernally, it was going towards her right shoulder she felt nauseous and experienced couple of episode of emesis, after her supper she had another episode of chest discomfort which she is describing as someone stabbed her with a knife, first episode lasted 5 to 10 minutes and second episode 15 to 20 minutes because of these concerns she decided to come to the hospital for further evaluation. She is also endorsing diarrhea, nausea, vomiting but denying fever and sick contact exposure. Diagnosis in the ER revealed hypertension, she was afebrile, CBC, BMP normal, D-dimer negative, troponin not significantly high, EKG unremarkable, at the time my interview she had her hand on her chest and she was complaining of pressure-like sensation, nitro paste was placed on her chest, GI cocktail was given, patient was in tears because of pain, chest x-ray unremarkable Review of Systems Const: Reports: body aches; Denies: fever(s), chills or fatigue Eyes: Denies: change in vision ENMT: Denies: throat pain Card: Reports: chest pain; Denies: palpitations, swelling of feet/ankles, pre-syncope or orthopnea Resp: Reports: dyspnea GI: Reports: nausea, vomiting and diarrhea : Denies: flank pain Musc: Reports: extremity swelling Skin/Breast: Denies: lesions Neuro: Denies: headache(s) Psych: Reports: anxiety, depression, mood swings, change in appetite and irritability Endo: Denies: polyuria Bonifacio/Lymph: Denies: easy bruising All/Imm: Denies: urticaria Medications/Allergies Home Medications Medication Instructions Recorded Confirmed Last Taken Type furosemide 20 mg tablet 60 mg PO DAILY tab 07/03/19 11/29/19 11/13/19 History gabapentin 800 mg tablet 800 mg PO TID 07/03/19 11/29/19 11/13/19 History hydrocodone 10 mg-acetaminophen 1 tab PO Q4H PRN 07/03/19 11/29/19 11/13/19 History 325 mg tablet omeprazole 40 mg PO DAILY 07/03/19 11/29/19 11/13/19 History clonidine HCl 0.2 mg PO BID 08/04/19 11/29/19 11/13/19 History lisinopril 30 mg PO DAILY 08/04/19 11/29/19 11/13/19 History metoprolol tartrate 100 mg PO TID 08/04/19 11/29/19 11/13/19 History oxycodone [OxyContin] 30 mg PO BID 08/04/19 11/29/19 11/13/19 History ondansetron HCl [Zofran] 4 mg PO Q6H #20 tab 11/16/19 11/29/19 Unknown Rx oxycodone 5 mg PO Q8H PRN #25 tab 11/16/19 11/29/19 Unknown Rx cyclobenzaprine 10 mg tablet 10 mg PO TID 30 Days #90 tab 11/30/19 Unknown Rx amitriptyline 75 mg tablet 75 mg PO DAILY #30 tab 01/29/20 01/29/20 Unknown Rx aripiprazole 15 mg tablet 15 mg PO DAILY #30 tab 01/29/20 01/29/20 Unknown Rx bupropion HCl 300 mg 24 hr tablet, 300 mg PO QAM #30 tab 01/29/20 01/29/20 Unknown Rx extended release topiramate 50 mg tablet 50 mg PO BID #60 tab 01/29/20 01/29/20 Unknown Rx triazolam 0.25 mg tablet 0.5 mg PO .at bedtime PRN #60 tab 01/29/20 01/29/20 Unknown Rx alprazolam 1 mg tablet 1 mg PO TID PRN #90 tab 01/30/20 01/30/20 Unknown Rx Allergies Allergy/AdvReac Type Severity Reaction Status Date / Time erythromycin base Allergy ALGY-Hives Verified 11/29/19 17:57 ketorolac [From Toradol] Allergy ALGY-Rash Verified 11/29/19 17:57 codeine AdvReac ADR-Itching Verified 11/29/19 17:57 PFSH Acute PFSH: Medical History (Updated 04/25/20 @ 02:04 by Wilfrido Padron MD) Bipolar disorder Bipolar disorder, current episode depressed, moderate Generalized anxiety disorder GERD (gastroesophageal reflux disease) Hypertension Migraine headache Morbid obesity PTSD (post-traumatic stress disorder) Sleep apnea Surgical History History of cholecystectomy in 2012 History of colonoscopy History of esophagogastroduodenoscopy (EGD) History of hysterectomy 2012, done due to endometriosis Family History Mother Anesthesia complication Denies family history of Bleeding disorder Social History Smoking and tobacco status: never smoked Alcohol intake: former Lives independently: Yes Household members: children Current occupational status: disabled History of recent travel: No Vitals/I&O/Wt Last Vital Signs Temp 98.1 F 04/24/20 22:00 Pulse 112 H 04/24/20 23:51 Resp 25 H 04/24/20 23:51 BP 189/89 04/24/20 23:51 Pulse Ox 96 04/24/20 23:51 Weight last 48 hrs Weight 104.326 kg Physical Exam Narrative: EXAM NARRATIVE: Young female, morbidly obese Patient is complaining of active chest pain, Nitropaste has been placed Hypertensive Patient is very irritable and emotionally labile She is in a position because of pain S1, S2 sinus tachycardia no sign of heart failure Looks euvolemic Abdomen soft nontender bowel sound present No acute respiratory distress no adventitious rhonchi or crackles, good airflow bilaterally EOMI, PERRLA No neurological deficit Emotionally labile, irritable Multiple skin tattoos noted No radial radial delay or hemodynamic compromise noted Data : 04/24/20 23:15 04/24/20 23:15 A&P Assessment and plan (1) Unstable angina: Status: Acute (2) Acute kidney injury superimposed on chronic kidney disease: Status: Acute Additional A&P Information Unstable angina Patient is describing substernal pressure-like sensation, crescendo angina, this pain would last 10 to 20 minutes, suboptimally controlled with nitro paste She has risk factors such as age, morbid obesity, sleep apnea, hypertension I would request Lexiscan stress test in the morning for moderate risk factors for coronary disease Echo in the morning to rule out wall motion abnormality Would also try GI cocktail as patient carries history of gastric sleeve placement and GERD, not sure at this point whether esophageal motility disorder is playing a role for her symptoms Less likely to be PE as D-dimer is not severely high that would rule out PE No radio-radial delay on clinical exam less likely be aortic dissection Acute on chronic kidney disease Etiology most likely is nephrotoxic agents Baseline creatinine seems to be around 1-1.1 current creatinine 1.2 Hold lisinopril and Lasix Decrease gabapentin dose secondary to ROBERTO Bipolar disorder She is on multiple antipsychotics, opioids and antidepressants Decreasing gabapentin dose, hold amitriptyline, QTC less than 500 Sleep apnea: Patient is claustrophobic and would not use CPAP Full code N.p.o. DVT prophylaxis Heparin Attestations Medical Necessity Statement*: Anticipating discharge in less than 48 hours need stress test rule out coronary ischemia to be the cause of her chest discomfort, patient has active chest discomfort which she describing as pressure-like sensation, will need overnight monitoring and echo Time Spent in Patient Care: (>than 50% of time spent in counselling and/or direct pt care on unit). 40mins Coding Level of Care Code Acute Pbx Repairer for Jolly Santos Diagnoses Unstable angina I20.0 Acute kidney injury superimposed on chronic kidney disease N17.9; N18.9
[2020-04-25 00:45] LABS: Add Urine Microscopic? NO
[2020-04-25] MEDS: nitroglycerin 1 gm/inch oint Pkt 1 INCH TOPICAL (00:45)
[2020-04-25] MEDS: nitroglycerin 0.4 mg sublingual Tablet SUBLINGUAL (00:57)
[2020-04-25 01:12] LABS: Troponin 5 2HR 10.83 ng/L (0-10)
[2020-04-25 01:12] LABS: Bilirubin Urine Neg (Negative); Blood Urine Neg (Negative); Glucose Urine UA Norm (Normal); Ketones Urine Negative (Negative); Leukocyte Esterase Urine Negative (Negative); Nitrate Urine Negative (Negative); Protein Urine Neg (Negative); Urine Appearance Clear (CLEAR); Urine Color Yellow (Yellow); Urobilinogen Urine Norm (Negative)
--- NOTE | 2020-04-25 01:20 | PC.NURSE ---
transport to ICU delayed due to rec RN request. ICU to call back when ready for pt report
[2020-04-25 01:24] LABS: Troponin 5 2HR Delta -1.17 ABS# (0-10)
[2020-04-25] MEDS: lidocaine 2% viscous 15 ML, aluminum-mag hydrox-simethicon 30 ML, sucralfate oral liq 1 GM PO (01:43)
--- NOTE | 2020-04-25 02:37 | USCV_ITS ---
Abean Galan Age: 44 Gender: F : 1975 Exam Date: 04/25/2020 06:56 Ordering Phys: Wilfrido Padron MD Technologist: Sulema Prieto Exam Location: [facility] Indication: ANGINA BP: 158 / 87 HR: 96 Rhythm: Sinus Technical Quality: Adequate MEASUREMENTS (Male / Female) Normal Values 2D ECHO LV Diastolic Diameter PLAX 3.8 cm 4.2 - 5.9 / 3.9 - 5.3 cm LV Systolic Diameter PLAX 2.8 cm LV Chamber Size 3.0 cm IVS Diastolic Thickness 1.2 cm 0.6 - 1.0 / 0.6 - 0.9 cm IVS Systolic Thickness 1.5 cm LVPW Diastolic Thickness 2.2 cm 0.6 - 1.0 / 0.6 - 0.9 cm LVPW Systolic Thickness 2.4 cm RV Chamber Size 2.2 cm LVOT Diameter 2.0 cm LV Ejection Fraction 2D Teich 50.5 % LV Ejection Fraction MOD 2C 46.4 % LV Ejection Fraction 2C AL 46.4 % LA Diameter 3.7 cm LA Width 2.8 cm LA Height 4.6 cm RA Width 2.6 cm RA Height 4.5 cm Aorta at Sinotubular Diameter 2.9 cm M-MODE LV Diastolic Diameter MM 4.6 cm 4.2 - 5.9 / 3.9 - 5.3 cm LV Systolic Diameter MM 2.6 cm LV Ejection Fraction MM Teich 74.8 % IVS Diastolic Thickness MM 0.8 cm 0.6 - 1.0 / 0.6 - 0.9 cm IVS Systolic Thickness MM 1.1 cm LVPW Diastolic Thickness MM 0.9 cm 0.6 - 1.0 / 0.6 - 0.9 cm LVPW Systolic Thickness MM 1.4 cm Aortic Annulus Diameter 2.7 cm LA Ao Ratio MM 1.8 MV E Point Septal Separation 0.7 cm DOPPLER AV Peak Velocity 115.0 cm/s LVOT Peak Velocity 106.0 cm/s AV Area Cont Eq vti 3.1 cm squared AV Area Cont Eq pk 2.9 cm squared MV Area PHT 7.1 cm squared Mitral E to A Ratio 1.4 MV E' Velocity 55.5 cm/s Mitral E to MV E' Ratio 9.6 Mitral E to LV E' Lateral Ratio 9.8 Mitral E to LV E' Septal Ratio 9.4 TR Peak Velocity 306.0 cm/s TR Peak Gradient 37.5 mmHg TV Peak E Velocity 68.0 cm/s Right Atrial Pressure 3.0 mmHg Pulmonary Artery Systolic Pressu 40.5 mmHg PV Peak Velocity 111.0 cm/s RV Acceleration Time 0.1 s RV Ejection Time 0.3 s RV AcT/ET 0.4 FINDINGS Left Ventricle Normal left ventricular size and systolic function, EF 55 %. No regional wall motion abnormalities. Right Ventricle The right ventricle is normal in size and function. Right Atrium The right atrium is normal in size. Left Atrium The left atrium is normal in size. Mitral Valve No gross abnormalities noted Aortic Valve No gross abnormalities noted Tricuspid Valve Trace tricuspid valve regurgitation. Pulmonic Valve No gross abnormalities noted Pericardium Normal pericardium without effusion. Aorta Normal ascending aorta dimension. CONCLUSIONS Normal left ventricular size and systolic function, EF 55 %. No regional wall motion abnormalities. Trace tricuspid valve regurgitation. Estimated pulmonary artery peak systolic pressure of 41 mmHg There is no pericardial effusion. There are no intracardiac masses. No previous study is available for comparison. Dr Jennifer Antunez MD FACC (Electronically Signed) Final Date: 25 April 2020 13:53 S
--- NOTE | 2020-04-25 03:11 | PC.NURSE ---
assessment reviewed and agreed with
--- NOTE | 2020-04-25 03:19 | PC.NURSE ---
0230 report called by albaro EMT 0240 Pt arrived to unit via wheel chair and had c/o severe chest pain. Dr is aware, and orders are in for PRN pain, anxiety, NPO diet and am stress test. Morphine given and patient verbalizes relief.
[2020-04-25] MEDS: heparin 5,000 unit/mL INJ 1 mL 5000 UNIT SUBCUT ×3 (03:43→17:37)
--- NOTE | 2020-04-25 03:55 | NMCV_ITS ---
NM alden perf SPECT r/s* [id number] Abena Gaaln Age: 44 Gender: F : 1975 Exam Date: 04/25/2020 03:55 Ordering Phys: Wilfrido Padron MD Technologist: KIMBERLEY Valdivia Exam Location: [facility] Indications: Chest pain, SOB, vomiting, chronic migraine STRESS TEST Please see separate stress test report in [facility] for full findings IMAGE PROTOCOL Rest/Stress 1 Lexiscan Day Radiopharmaceutical Dose (mCi) Administration Site Administered by Rest: Tc-99m 10.7 IV KIMBRELEY Delgado Sestamibi Stress:Tc-99m 33.0 IV KIMBERLEY Valdivia Sestamishakila Rest: 25-Apr-2020 60 Discovery 630 Stress: 25-Apr-2020 45 Discovery 630 0.4mg Lexiscan. Images obtained in supine and prone position. SPECT RESULTS Technical Quality: Good Raw Data Analysis: Breast attenuation, Subdiaphragmatic activity Image Corrections: No attenuation or motion correction applied Summed Stress Score: 0 Summed Rest Score: 0 Summed Difference Score: 0 PERFUSION FINDINGS SPECT images demonstrate homogeneous tracer distribution throughout the myocardium. FUNCTIONAL RESULTS (calculated via Gated SPECT) Stress Image LV EF (%): 68 Stress EDV (mL):92 TID: 1.17 Stress ESV (mL):29 Rest Image LV EF (%): 68 FUNCTIONAL FINDINGS: There is normal left ventricular systolic function. IMPRESSIONS Myocardial perfusion imaging is normal and low probability for obstructive coronary artery disease.TID ratio is elevated which could be secondary to left ventricle hypertrophy in the absence of other parameters. EKG segment will be documented separately. Wilfrido Santiago MD (Electronically Signed) Final Date: 25 April 2020 13:02 S
--- NOTE | 2020-04-25 04:15 | ECG_ITS ---
[facility] Test Date: 2020-04-25 Pat Name: Abena Galan Department: Room: [facility] Gender: Female Tie In Hand: COLE : 1975 Requested By: Meme Hobbs Order Number: [id number] Radha MD: Ines Romero M.D. Measurements Intervals [place] Rate: P: [place]: QRS: 0 QRSD: T: 0 QT: QTc: Interpretive Statements SINUS RHTHM INDETERMINATE AXIS ABNORMAL RHYTHM ECG WARNING: DATA QUALITY MAY AFFECT INTERPRETATION Compared to ECG 04/24/2020 23:44:39 Indeterminate axis now present Sinus tachycardia no longer present Electronically Signed On 04-25-2020 21:26:55 TRADE SHOW COORDINATOR by Ines Romero M.D. [id number]
[2020-04-25 04:18] LABS: Basophils % 0.3 %; Eosinophils # 0.2 10^3/uL (0.0-0.8); Eosinophils % 2.2 %; Hematocrit 34.6 % (37.0-47.0); Hemoglobin 10.4 g/dL (11.5-15.3); Lymphocytes # 2.4 10^3/uL (0.8-4.8); Lymphocytes % 32.6 %; Mean Corpuscular HGB Conc 30.1 g/dL (30.0-36.0); Mean Corpuscular Hemoglobin 25.3 pg (28.0-34.0); Mean Corpuscular Volume 84.2 fL (81-99); Mean Platelet Volume 10.1 fL (7.4-10.4); Monocytes # 0.5 10^3/uL (0.2-0.9); Monocytes % 6.6 %; Neutrophils # 4.32 10^3/uL (1.8-7.7); Nucleated Red Blood Cells % 0 %; Platelet Count 310 10^3/cmm (130-400); Red Blood Count 4.11 10^6/uL (4.1-5.3); Red Cell Distribution Width 15.3 % (12.1-15.1); White Blood Count 7.4 10^3/uL (4.0-10.0)
[2020-04-25 04:38] LABS: Troponin 5 6HR 10.47 ng/L (0-10)
[2020-04-25 04:41] LABS: Troponin 5 6HR Delta -1.53 ng/L (0-12)
[2020-04-25 04:42] LABS: Anion Gap 9.4 (5-19); Blood Urea Nitrogen 17 mg/dL (6-20); Calcium 8.8 mg/dL (8.5-10.5); Carbon Dioxide 29 mmol/L (22-29); Chloride 108 mmol/L (98-107); Glucose 121 mg/dL (65-115); Osmolality Calculated 297 mOsm/kg (285-295); Potassium 4.4 mmol/L (3.5-5.1); Sodium 142 mmol/L (136-145)
[2020-04-25] MEDS: HYDROcodone-acetaminophen 10-325 mg Tablet 1 TAB PO ×2 (04:54→10:52)
--- NOTE | 2020-04-25 06:00 | ECG_ITS ---
[facility] Test Date: 2020-04-25 Pat Name: Abena Galan Department: Room: 102 Gender: Female Guide: : 1975 Requested By: Wilfrido Padron Order Number: [id number] Radha MD: WILFRIDO DAN Interpretive Statements NAME OF STUDY: LEXISCAN SESTAMIBI STRESS TEST INDICATION: Chest Pain, NOTE: Please note that this is the electrocardiogram portion of the Lexiscan/Sestamibi stress test. The perfusion scan will be documented separately. DATA: Baseline heart rate was 95 beats per minute. Baseline blood pressure was 196/102 millimeters of mercury. Target heart rate was 175. Maximum heart rate achieved was 111. which was 63 % of the predicted target heart rate. Maximum blood pressure was 244/103 millimeters of mercury. The reason for ending the test was completion of the protocol. The patient did not experience any symptoms. ELECTROCARDIOGRAM: BASELINE: Sinus rhythm. Normal axis. Otherwise, no ST-T changes suggestive of ischemia noted. No arrhythmia noted. EXERCISE: After Lexiscan injection, non significant ST-T changes noted. No arrhythmia noted. CONCLUSION: Please note due to baseline abnormality of the EKG specificity and sensitivity of the EKG portion of LexiScan MIBI stress test will be low 1. EKG not suggestive of ischemia 2. Lexiscan injection unremarkable. 3. Perfusion scan will be documented separately. Electronically Signed On 04-25-2020 18:19:17 TRAVELING REPAIR ACCOUNTANT by WILFRIDO DAN [id number]
--- NOTE | 2020-04-25 07:54 | PC.NURSE ---
patient brought to unit by ICU staff marry alert oriented and in stable condition patient now off unit for stress test.
[2020-04-25] MEDS: regadenoson 0.4 Mg/5 ml Syringe IVP (08:18)
[2020-04-25] MEDS: gabapentin 300 mg Capsule 600 MG PO ×3 (10:52→19:58)
[2020-04-25] MEDS: ARIPiprazole 30 mg Tablet 15 MG PO (10:53)
[2020-04-25] MEDS: topiramate 25 mg Tablet 50 MG PO ×2 (10:53→17:32)
--- NOTE | 2020-04-25 11:29 | PC.NURSE ---
patient reporting 8/10 chest pain upon returning to unit from stress testing. notified Dr velasquez instructions given to try norco first before giving IV morphine. patient given scheduled PO medications as well as Po hydrocodone . patient vomited up medications with in minutes. Dr velasquez notified instructions to proceed with giving morphine. Blood pressure noted to be very elevated at 220/120 Dr. velasquez notified awaiting orders.
[2020-04-25] MEDS: hyDRALAzine 20 mg/mL INJ 1 mL 10 MG IVP (12:44)
[2020-04-25] MEDS: metoprolol tartrate 50 mg Tablet 100 MG PO ×2 (13:23→19:58)
[2020-04-25] MEDS: nicardipine 20 MG/200 ML PREMIX 50 MG IV (14:41)
--- NOTE | 2020-04-25 14:41 | P.PN_ITS ---
Subjective Subjective: Interval history: Patient continues to have chest pain and nausea. She threw up her meals this morning. Returned from stress test and her blood pressure was noted to be elevated up to 220/120. He has been given hydralazine and metoprolol, thus far blood pressure remains the same unchanged. She is now being started on a Cardene drip. Stress test returned with only signs of LVH no reversible ischemia noted. Medications: Reviewed: Yes Vitals/I&O/Wt Last Vital Signs Temp 97.5 F L 04/25/20 10:42 Pulse 92 04/25/20 11:30 Resp 15 04/25/20 11:30 BP 220/120 04/25/20 11:30 Pulse Ox 92 04/25/20 11:30 04/24/20 04/25/20 04/25/20 22:59 06:59 14:59 Output Total 300 / 300 Balance -300 / -300 Weight last 48 hrs Weight 104.326 kg Physical Exam Narrative: EXAM NARRATIVE: GEN: Awake, alert and oriented in mild distress because of nausea. CVS: S1S2 N RS: CTA B/L Abd: Soft, nt/nd , bs+ TAX ATTORNEY: no focal neuro deficits Data : 04/25/20 04:00 04/25/20 04:00 A&P Assessment and plan (1) Unstable angina: Status: Acute (2) Acute kidney injury superimposed on chronic kidney disease: Status: Acute Additional A&P Information Ongoing chest pain. Due to concern for unstable angina, patient underwent a stress test this morning, this has been read as without signs of reversible ischemia, however LVH is noted. Currently she is noted to be in hypertensive urgency with blood pressure up to 220/120, giving her hydralazine IV and metoprolol has not made any significant difference thus far. We will go ahead and start her on a nicardipine infusion for the same. Troponin series was negative delta is overnight. Esophageal dysmotility may additionally be contributing to her symptoms, however given hypertensive urgency cannot exclude cardiac causes altogether. Less likely PE as D-dimer is negative. No radio-radial delay on clinical exam less likely be aortic dissection Acute on chronic kidney disease Creatinine is currently at baseline of 1.0. Resume lisinopril at home dose of 30 mg daily. Bipolar disorder She is on multiple antipsychotics, opioids and antidepressants Decreasing gabapentin dose, hold amitriptyline, QTC less than 500 Sleep apnea: Patient is claustrophobic and would not use CPAP Full code N.p.o. DVT prophylaxis Heparin Attestations Medical Necessity Statement*: Hypertensive urgency, blood pressure greater than 220 in spite of IV pushes, to start nicardipine drip,ongoing chest pain. Change to inpatient status Coding Level of Care Code Acute Manager Knowledge for g Fwd Diagnoses Unstable angina I20.0 Acute kidney injury superimposed on chronic kidney disease N17.9; N18.9
[2020-04-25] MEDS: lisinopril 20 mg Tablet 30 MG PO (15:07)
[2020-04-25] MEDS: nicardipine 20 MG/200 ML PREMIX 30 MG IV (16:39)
--- NOTE | 2020-04-25 17:30 | PC.NURSE ---
Dr. Latham updated. Patient vomitted twice and still feels nauseas. zofran cannot be administered until 1845. Patient stated that phenergan usually helps. Dr. Latham to put in orders.
[2020-04-25] MEDS: cloNIDine 0.1 mg Tablet 0.2 MG PO (17:31)
[2020-04-25] MEDS: promethazine 25 mg/mL SDV 1 mL 12.5 MG IM (17:51)
--- NOTE | 2020-04-25 18:41 | PC.NURSE ---
Patient BP now 136/74 HR 77. No parameters received for when to discontinue Cardene gtt. Dr. Latham notified by secure messaging. Cardene gtt remains at 3 mg/hr per orders. Nurse to continue to monitor.
--- NOTE | 2020-04-25 19:06 | PC.NURSE ---
1500 metoprolol administration clarified with Dr. Latham. Patient had received first dose at 1330. Physician gave telephone order to hold 1500 dose. RBTO.
[2020-04-25] MEDS: oxyCODONE 20 mg ER (12 HR) Tablet PO (19:07)
[2020-04-25] MEDS: atorvastatin 40 mg Tablet PO (19:09)
--- NOTE | 2020-04-25 19:38 | PC.NURSE ---
Cardene drip paused due to BP at 117/79. Patient continues to c/o pain to chest. Medication administered by previous RN.
--- NOTE | 2020-04-25 20:07 | PC.NURSE ---
Patient resting in bed watching tv. Grimacing. C/O pain to chest and arms 8/10 which is worse with movement and repositioning. Medications given as ordered. Assessment completed as documented.
--- NOTE | 2020-04-25 22:02 | PC.NURSE ---
Patient reports feeling much better. Requesting food which was provided. Patient expressed thanks. Kareem gu remain paused at this time. See VS documented. BP monitored every 15min currently.
[2020-04-26] VITALS (47 sets, daily range): BP systolic 73–131; BP diastolic 49–91; PULSE 70–88; RESP 7–22; TEMP 36.5–36.8; O2SAT 81–100
[2020-04-26] MEDS: heparin 5,000 unit/mL INJ 1 mL 5000 UNIT SUBCUT ×2 (03:35→11:38)
[2020-04-26 05:08] LABS: Alanine Aminotransferase 23 U/L (0-33); Albumin Level 3.9 g/dL (3.5-5.2); Alkaline Phosphatase 159 IU/L (35-105); Anion Gap 14.7 (5-19); Aspartate Amino Transferase 43 U/L (0-32); Blood Urea Nitrogen 20 mg/dL (6-20); Calcium 9.1 mg/dL (8.5-10.5); Carbon Dioxide 25 mmol/L (22-29); Chloride 100 mmol/L (98-107); Globulin 3.4 g/dL (1.3-4.6); Glomerular Filtration Rate 28.6 mL/min (90-130); Glucose 94 mg/dL (65-115); Osmolality Calculated 282 mOsm/kg (285-295); Potassium 4.7 mmol/L (3.5-5.1); Sodium 135 mmol/L (136-145); Total Bilirubin 0.3 mg/dL (0.15-1.2); Total Protein 7.3 g/dL (6.6-8.7)
[2020-04-26] MEDS: ondansetron 2 mg/ML SDV 2 mL 4 MG IVP (06:46)
[2020-04-26] MEDS: buPROPion XL (24 HR) 300 mg Tablet PO (06:48)
[2020-04-26] MEDS: oxyCODONE 20 mg ER (12 HR) Tablet PO (06:48)
[2020-04-26 07:07] LABS: Basophils % 0.3 %; Eosinophils # 0.3 10^3/uL (0.0-0.8); Eosinophils % 2.4 %; Hematocrit 38.4 % (37.0-47.0); Hemoglobin 11.2 g/dL (11.5-15.3); Lymphocytes # 2.2 10^3/uL (0.8-4.8); Lymphocytes % 18.8 %; Mean Corpuscular HGB Conc 29.2 g/dL (30.0-36.0); Mean Corpuscular Hemoglobin 25.7 pg (28.0-34.0); Mean Corpuscular Volume 88.1 fL (81-99); Mean Platelet Volume 10.1 fL (7.4-10.4); Monocytes # 1.1 10^3/uL (0.2-0.9); Monocytes % 9.2 %; Neutrophils # 7.97 10^3/uL (1.8-7.7); Neutrophils % 68.9 %; Nucleated Red Blood Cells % 0 %; Platelet Count 390 10^3/cmm (130-400); Red Blood Count 4.36 10^6/uL (4.1-5.3); Red Cell Distribution Width 15.8 % (12.1-15.1); White Blood Count 11.6 10^3/uL (4.0-10.0)
[2020-04-26] MEDS: naloxone 0.4 mg/ml SDV 0.1 MG IVP (09:38)
[2020-04-26] MEDS: sodium chloride 0.9% 1,000 ML 999 ML IV (09:43)
--- NOTE | 2020-04-26 10:30 | PC.NURSE ---
dr. Latham updated on patient condition at 0932. BP 80/49 HR 71. Patient lethargic but alert. Dr. Latham gave telephone order to administer 1 L bolus, wide open and 0.1 mg narcan IVP. Hold morning medications until evaluated by physician. RBTO. Orders implemented. Patient lethargy improved to baseline. VS monitored closely, see VS flowsheet. Verbal order to administer amitriptyline, gabapentin, singulair, and protonix. Change abilify administration time to 1500. RBVO.
[2020-04-26] MEDS: montelukast sodium 10 mg Tablet PO (11:37)
[2020-04-26] MEDS: gabapentin 300 mg Capsule 600 MG PO (11:37)
[2020-04-26] MEDS: pantoprazole DR 40 mg Tablet PO (11:37)
--- NOTE | 2020-04-26 13:22 | P.DS_ITS ---
Discharge Providers Date of Admission: 04/25/20 14:57 Date of Discharge: April 26, 2020 Attending Provider at Admission: Wilfrido Padron MD Attending Provider at Discharge: Tete Latham MD Primary Care Provider: CARITO Lyons Diagnoses at Discharge Discharge Diagnosis (1) Acute kidney injury superimposed on chronic kidney disease: Status: Acute (2) Hypertensive urgency: Status: Acute (3) Chest pain: Status: Acute Qualifiers: Chest pain type: unspecified Qualified Code(s): R07.9 - Chest pain, unspecified (4) Generalized anxiety disorder: Status: Acute (5) Bipolar disorder, current episode depressed, moderate: Status: Acute (6) Morbid obesity: Status: Acute Reason for Visit Reason for Visit: chest pain,SOB,vomiting,chronic migraine Hospital Course Hospital Course Abena Galan is a 44 year old female who has significant history of depression, bipolar disorder, sleep apnea, PTSD noncompliant with CPAP due to claustrophobia presented with chief complaint of chest discomfort. Diagnosis in the ER revealed hypertension, she was afebrile, CBC, BMP normal, D-dimer negative, troponin not significantly high, EKG unremarkable. Her blood pressure upon admission was more than 220 systolic. States that at home it was running mostly between 1 70-1 80 systolic. She underwent a stress test on April 25 due to concern for unstable angina, overall test did not reveal any reversible ischemic defects, note was made of left ventricular hypertrophy, likely as a result of longstanding hypertension. For hypertensive urgency she was started on treatment with nicardipine infusion and overlapped with p.o. medications. It is uncertain if she has been taking her oral medications as prescribed. With the above interventions her blood pressure today is much better, ranging between 1 10-1 20 systolic. She is encouraged compliance with her home medications and also encouraged to minimize use of opiate medication. Sedation, especially since she is unwilling to use her CPAP machine at home. This morning she did become very somnolent after receiving oxycodone 20 mg daily, therefore dose of this has been reduced to 10 mg p.o. daily. She did receive Narcan 0.1 mg this morning with quick reversal of her somnolence and return to baseline. Her chest pain and headache are significantly improved after blood pressure control. She is instructed to follow-up with cardiology should her chest pain remain persistent. Of note her kidney function did increase from a creatinine of 1.1- 1.9, following which her lisinopril has now been placed on hold. She is encouraged to follow-up with her PCP on Wednesday. Her sister had raised concerns that patient may be taking too much benzodiazepines at home, however upon directly questioning the patient she denies any suicidal ideation. Denies feeling overly depressed, does admit that the depression varies given her bipolar disorder however at this present time she does not feel depressed. She has 3 kids with her and states she wants to be alive and well for all 3 of them. She follows with [facility] at [place] regularly. 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: no focal neuro deficits Discharge Data Data Completed and Pending: Completed Studies During Hospitalization Category Date Time Status Sestamibi Stress Test Request Routi ne Exams 04/25/20 06:00 Completed XR chest 1V ivan ble 15028 Stat Exams 04/24/20 22:15 Completed NM alden perf SPECT r/s* [id number] Routin e Nuc Med 04/25/20 03:55 Completed CV echo complete* [id number] Routine Ultrasound 04/25/20 02:37 Completed Pending at discharge Category Date Time Status Sestamibi Stress Test Request Routi ne Exams 04/26/20 06:00 Stop Req Labs from last 24 hours 04/26/20 04/26/20 04/26/20 06:23 03:52 03:52 WBC 11.6 H Cancelled Corrected WBC Cancelled RBC 4.36 Cancelled Hgb 11.2 L Cancelled Hct 38.4 Cancelled MCV 88.1 Cancelled MCH 25.7 L Cancelled MCHC 29.2 L Cancelled RDW 15.8 H Cancelled Plt Count 390 Cancelled MPV 10.1 Cancelled Gran % Cancelled Neut % (Auto) 68.9 Cancelled Lymph % (Auto) 18.8 Cancelled [place] % (Auto) 9.2 Cancelled Eos % (Auto) 2.4 Cancelled Baso % (Auto) 0.3 Cancelled Neut # (Auto) 7.97 H Cancelled Lymph # (Auto) 2.2 Cancelled [place] # (Auto) 1.1 H Cancelled Eos # (Auto) 0.3 Cancelled Baso # (Auto) 0.0 Cancelled Absolute Gran (aut o) Cancelled Nucleated RBC % (a uto) 0 Cancelled Nucleated RBCs # 0.0 Cancelled Sodium 135 L Potassium 4.7 Chloride 100 Carbon Dioxide 25 Anion Gap 14.7 BUN 20 Creatinine 1.9 H GFR Calculation 28.6 L Glucose 94 Calculated Osmolal ity 282 L Calcium 9.1 Total Bilirubin 0.3 AST 43 H ALT 23 Alkaline Phosphata se 159 H Total Protein 7.3 Albumin 3.9 Globulin 3.4 Vitals: Last Vital Signs Temp 97.7 F 04/26/20 11:28 Pulse 74 04/26/20 11:28 Resp 15 04/26/20 11:28 BP 107/63 04/26/20 11:28 Pulse Ox 99 04/26/20 11:28 Discharge Plan Discharge Patient Disposition: Home Condition: Stable Prescriptions: Continued hydrocodone-acetaminophen 10-325 mg tablet 1 tab PO Q4H PRN (Reason: pain) RF: 0 gabapentin [Neurontin] 800 mg tablet 800 mg PO TID@,, RF: 0 triazolam 0.25 mg tablet 0.5 mg PO .at bedtime PRN (Reason: sleep) Qty: 60 RF: 2 amitriptyline 75 mg tablet 75 mg PO DAILY Qty: 30 RF: 3 aripiprazole [Abilify] 15 mg tablet 15 mg PO DAILY Qty: 30 RF: 3 bupropion HCl [Wellbutrin XL] 300 mg tablet extended release 24 hr 300 mg PO QAM Qty: 30 RF: 3 topiramate [Topamax] 50 mg tablet 50 mg PO BID Qty: 60 RF: 3 cyclobenzaprine 10 mg tablet 10 mg PO TID 30 Days Qty: 90 RF: 1 clonidine HCl 0.2 mg tablet 0.2 mg PO BID PRN (Reason: Blood Pressure) RF: 0 ondansetron HCl [Zofran] 4 mg tablet 4 mg PO Q6H Qty: 20 RF: 0 Stadol NS 10 mg/mL [place],Non-Aerosol 1 spray INTRANASAL Q4H PRN (Reason: Migraine Headache) RF: 0 atorvastatin 40 mg Tablet 40 mg PO DAILY@20 RF: 0 montelukast 10 mg Tablet 10 mg PO DAILY@09 RF: 0 omeprazole 40 mg Capsule,Delayed Release(Dr/Ec) 40 mg PO DAILY@09 RF: 0 Changed furosemide [Lasix] 20 mg tablet 40 mg PO DAILY@09 Qty: 0 RF: 0 metoprolol tartrate 100 mg tablet 100 mg PO BID Qty: 0 RF: 0 oxycodone [OxyContin] 30 mg tablet,oral only,ext.rel.12 hr 10 mg PO BID@07,19 Qty: 0 RF: 0 Discontinued alprazolam 1 mg tablet 1 mg PO TID PRN (Reason: anxiety) Qty: 90 RF: 2 lisinopril 20 mg tablet 30 mg PO DAILY@09 RF: 0 oxycodone 5 mg tablet 5 mg PO Q8H PRN (Reason: pain) Qty: 25 RF: 0 Discharge Orders: Discharge Order (Routine); Ordered 04/26/20 Ordered By: Tete Latham Referrals: Lianet De Jesus DPM [Primary Care Provider] - 4-7 days (ROBERTO, hospital follow up for hypertensive urgency ) Ines Romero MD [Physician] - 2 weeks (chest pain ) Discharge Diet: Usual diet Discharge Activity: Resume usual activity Activity Restrictions/Additional Instructions: make appointment to see project superintendent of chest pain persists Discharge Attestations Time Spent in Discharge Care*: greater than 30 min Status at Discharge: Cognitive status at discharge: cognitively intact , Behavioral status at discharge: cooperative , Quality Metrics Clinical Quality Measures During this hospital stay, did patient experience: None Coding Level of Care Code Acute Second Cutter for g Fwd Diagnoses Acute kidney injury superimposed on chronic kidney disease N17.9; N18.9 Hypertensive urgency I16.0 Chest pain R07.9 Chest pain type: unspecified Generalized anxiety disorder F41.1 Bipolar disorder, current episode depressed, moderate F31.32 Morbid obesity E66.01
--- NOTE | 2020-04-26 16:09 | PC.NURSE ---
Discharge instructions given per the physician's orders. Patient verbalized understanding of teaching and med compliance. No further needs identified at this time.
== END 2020-04-26 16:10 | disposition home or self-care (01) | DRG 311 ==
LOC: ER 22:09 → ICU 04-25 00:47 → CSU 04-25 07:38
PROVIDERS: Admitting Provider Internal Medicine; Emergency Provider Emergency Medicine; PCP Nurse Practitioner; Visit Provider Student in an Organized Health Care Education/Training Program
DX: I20.0 Unstable angina (principal); F31.32 Bipolar disorder, current episode depressed, moderate; N17.9 Acute kidney failure, unspecified; G47.30 Sleep apnea, unspecified; F43.10 Post-traumatic stress disorder, unspecified; Z91.19 Patient's noncompliance with other medical treatment and regimen; F40.240 Claustrophobia; I12.9 Hypertensive chronic kidney disease with stage 1 through stage 4 chronic kidney disease, or unspecified chronic kidney disease; N18.9 Chronic kidney disease, unspecified; F41.1 Generalized anxiety disorder; K21.9 Gastro-esophageal reflux disease without esophagitis; E66.01 Morbid (severe) obesity due to excess calories; Z68.39 Body mass index [BMI] 39.0-39.9, adult; F10.21 Alcohol dependence, in remission; I16.0 Hypertensive urgency; I51.7 Cardiomegaly; Z79.891 Long term (current) use of opiate analgesic
CPT/HCPCS: 12345; 36415; 71045; 78452; 80048; 80053; 81003; 83690; 83735; 84484; 84703; 85025; 85378; 93005; 93017; 93306; 96372; 96375; 99282; A9500; G0378; J0360; J1644; J2270; J2310; J2405; J2550; J2785; J7030

== ENCOUNTER → 2020-05-01 16:04 | Outpatient (BNVA) | payer MEDICARE, MEDICAID, SELFPAY | PROVIDERS: PCP Nurse Practitioner; Visit Provider Registered Nurse | DX: Z79.899 Other long term (current) drug therapy (principal) | CPT/HCPCS: 80307 ==

== ENCOUNTER → 2020-06-17 11:29 | Outpatient (BNVA) | payer MEDICARE, MEDICAID, SELFPAY | PROVIDERS: PCP Physician Assistant Medical; Visit Provider Internal Medicine Cardiovascular Disease | DX: I11.0 Hypertensive heart disease with heart failure (principal); I50.9 Heart failure, unspecified; R06.00 Dyspnea, unspecified; R00.0 Tachycardia, unspecified; R07.9 Chest pain, unspecified; F41.1 Generalized anxiety disorder; E66.01 Morbid (severe) obesity due to excess calories; F31.32 Bipolar disorder, current episode depressed, moderate | CPT/HCPCS: 80048; 83735; 83880 ==

== ENCOUNTER 2022-02-19 12:05 | Emergency (ER) | payer MEDICARE, MEDICAID, SELFPAY ==
[2022-02-19 12:10] VITALS: BP 136/91; PULSE 121; RESP 16; TEMP 37.4; O2SAT 99; BMI 37.3
[2022-02-19 13:43] LABS: Add Urine Microscopic? NO; Charge for UA Resulting for Rev
[2022-02-19 13:47] LABS: Bilirubin Urine Neg (Negative); Blood Urine Neg (Negative); Glucose Urine UA Norm (Normal); Ketones Urine Negative (Negative); Leukocyte Esterase Urine Negative (Negative); Nitrate Urine Negative (Negative); Protein Urine Neg (Negative); Urine Appearance Clear (CLEAR); Urine Color Yellow (Yellow); Urobilinogen Urine Neg (Negative); pH Urine 5 (5-7)
[2022-02-19 13:54] LABS: Basophils % 0.3 %; Eosinophils # 0.2 10^3/uL (0.0-0.8); Eosinophils % 1.6 %; Hematocrit 37.6 % (37.0-47.0); Hemoglobin 11.5 g/dL (11.5-15.3); Lymphocytes # 2.1 10^3/uL (0.8-4.8); Lymphocytes % 19.1 %; Mean Corpuscular HGB Conc 30.6 g/dL (30.0-36.0); Mean Corpuscular Hemoglobin 27.3 pg (28.0-34.0); Mean Corpuscular Volume 89.1 fl (81-99); Monocytes # 0.8 10^3/uL (0.2-0.9); Neutrophils # 7.67 10^3/uL (1.8-7.7); Neutrophils % 71.6 %; Nucleated Red Blood Cells % 0 %; Platelet Count 265 10^3/cmm (130-400); Red Blood Count 4.22 10^6/uL (4.1-5.3); Red Cell Distribution Width 13.9 % (12.1-15.1); White Blood Count 10.7 10^3/uL (4.0-10.0)
--- NOTE | 2022-02-19 14:18 | CTR_ITS ---
PROCEDURE INFORMATION: Exam: CT Abdomen And Pelvis With Contrast Exam date and time: 02/19/2022 4:07 PM Age: 46 years old Clinical indication: Abdominal pain; Additional info: Abd pain, lightheadedness TECHNIQUE: Imaging protocol: Computed tomography of the abdomen and pelvis with contrast. Radiation optimization: All CT scans at this facility use at least one of these dose optimization techniques: automated exposure control; mA and/or kV adjustment per patient size (includes targeted exams where dose is matched to clinical indication); or iterative reconstruction. Contrast material: OMNIPAQUE 350; Contrast volume: 80 ml; Contrast route: INTRAVENOUS (IV); COMPARISON: CT abdomen pelvis w con* [id number] 03/04/2019 8:47 AM RADIATION DOSE METRICS: Total DLP (mGy-cm): 1231.03 FINDINGS: Lungs: Left lower lobe 7.3 mm pulmonary nodule incompletely visualized, nonemergent chest CT could further evaluate this. Liver: Hepatic steatosis. Gallbladder and bile ducts: Cholecystectomy. Pancreas: Normal. No ductal dilation. Spleen: Normal. No splenomegaly. Adrenal glands: Normal. No mass. Kidneys and ureters: Normal. No hydronephrosis. Stomach and bowel: Prominent fluid in the small bowel without dilation may reflect an enteritis. Gastric surgical sutures. Constipation. Appendix: No evidence of appendicitis. Intraperitoneal space: Unremarkable. No free air. No significant fluid collection. Vasculature: Unremarkable. No abdominal aortic aneurysm. Lymph nodes: Unremarkable. No enlarged lymph nodes. Urinary bladder: Unremarkable as visualized. Reproductive: Unremarkable as visualized. Bones/joints: Unremarkable. No acute fracture. Soft tissues: Unremarkable. CT/CT abdomen pelvis w con* [id number] IMPRESSION: 1. Prominent fluid in the small bowel without dilation may reflect an enteritis. 2. Left lower lobe 7.3 mm pulmonary nodule incompletely visualized, nonemergent chest CT could further evaluate this. 3. Hepatic steatosis. 4. Cholecystectomy. 5. Gastric surgical sutures. 6. Constipation.
--- NOTE | 2022-02-19 14:23 | W.ED.GENADLT ---
HPI - General Adult General: Chief complaint: Abdominal Pain Stated complaint: Abd pain, N/V, lightheaded Time Seen by Provider: 02/19/22 14:17 History of Present Illness: Patient is a 46-year-old female with a history of gastric sleeve, cholecystectomy, hysterectomy who presents emergency room with concern's of acute onset of right lower quadrant abdominal pain since 9 PM yesterday night. Patient was at home on the when she suddenly noticed right lower quadrant pain. Persistent, patient reports significant with associated nausea without vomiting. Patient also reports feeling lightheaded. Patient reports pain is consistent as not relieved today. Patient denies any diarrhea melena hematochezia. No complaints including new vaginal discharge, or urinary symptoms. Patient denies any vaginal bleeding. Patient denies any associated chest pain, shortness breath, palpitation, cough, runny nose, sore throat fever or chill. Onset: yesterday night at 9pm Duration:ongoing Location:home Severity:moderate Associated symptoms: Reports nausea; Deny chest pain, dyspnea, rash, palpitations or vomiting Review of Systems Const: Denies: fever(s) or chills Eyes: Denies: change in vision ENMT: Denies: mouth pain Card: Denies: chest pain or palpitations Resp: Denies: dyspnea or non-productive cough GI: Reports: abdominal pain (+RLQ abd pain) and nausea; Denies: vomiting or diarrhea : Denies: dysuria Musc: Denies: extremity pain Skin/Breast: Denies: rash or new lesions Neuro: Denies: weakness in extremities Psych: Reports: other (Normal mood) Bonifacio/Lymph: Denies: easy bruising [facility] ED PFSH: Medical History Bipolar disorder Bipolar disorder, current episode depressed, moderate Generalized anxiety disorder GERD (gastroesophageal reflux disease) Hypertension Migraine headache Morbid obesity PTSD (post-traumatic stress disorder) Sleep apnea Surgical History History of cholecystectomy in 2012 History of colonoscopy History of esophagogastroduodenoscopy (EGD) History of hysterectomy 2012, done due to endometriosis Family History Mother Anesthesia complication Denies family history of Bleeding disorder Social History Smoking and tobacco status: never smoked Alcohol intake: former Lives independently: Yes Household members: children Current occupational status: disabled History of recent travel: No Physical Exam Const: COMMON NORMALS: alert HENMT: COMMON NORMALS: atraumatic HEAD & SCALP: atraumatic MOUTH: moist mucous membranes not abnormal Eye: COMMON NORMALS: EOMs intact bilaterally and conjunctivae normal CONJUNCTIVA: Yes conjunctivae normal Neck/C-Spine: COMMON NORMALS: full ROM and supple Resp: COMMON NORMALS: normal respiratory effort and clear to auscultation bilaterally AUSCULTATION: clear to auscultation bilaterally Cardio: COMMON NORMALS: regular rate RATE: regular rate GI: COMMON NORMALS: Soft to palpation PALPATION: Yes Soft to palpation OTHER: +moderate RLQ focal TTP. +volunary guarding on palpation in the RLQ. NO guarding rebound, guarding, rigidity. No CVA tenderness to percussion. Neg Guy/Neg McBurney's point tenderness, no suprabupic tenderness to palpation. Extremity: COMMON NORMALS: full ROM Neuro: SENSORIUM/ORIENTATION: Yes alert MOTOR EXAM: No Abnormal motor strength present and Other motor observations present (no focal motor deficits) Psych: COMMON NORMALS: speech normal SPEECH: Yes normal speech MOOD & AFFECT: Yes euthymic mood Course Vital Signs: Vital signs: Vital Signs Temperature 99.4 F 02/19/22 12:10 Pulse Rate 107 H 02/19/22 19:47 Respiratory Rate 16 02/19/22 19:47 Blood Pressure 167/94 02/19/22 19:47 Pulse Oximetry 97 02/19/22 19:47 Oxygen Delivery Me thod 02/19/22 19:47 MDM - General Adult Medical Decision Making Patient is a 46-year-old female with a history of gastric sleeve, cholecystectomy, hysterectomy who presents emergency room with concern's of acute onset of right lower quadrant abdominal pain since 9 PM yesterday night. Patient is in moderate distress with right lower quadrant tenderness to palpation with voluntary guarding. Patient is hemodynamically stable. White count of 6.7. Creatinine 1.2. CT abdomen pelvis showed no signs of appendicitis. Patient is found to have enteritis. Ultrasound did not show any free fluid in the left lower quadrant. Patient has a history of hysterectomy. She received IVF fentanyl and Pepcid with improvement in pain. She has been able to tolerate p.o. Patient's heart rate improved on reassessment. Rx tylenol PRN abd pain, maalox/pepcid PRN dyspepsia, and zofran PRN nausea/vomiting Disposition: Discharge. Patient counseled regarding diagnostic impression, treatment plan. Patient given ED strict return precautions to return for continuation, worsening, or development of new symptoms. Instructed to f/u w/ PCP regarding symptoms today. Patient verbalized understanding. Lab Data : 02/19/22 13:48 02/19/22 13:48 Radiology Impressions Abdomen/Pelvis CT 02/19/22 14:18 IMPRESSION: 1. Prominent fluid in the small bowel without dilation may reflect an enteritis. 2. Left lower lobe 7.3 mm pulmonary nodule incompletely visualized, nonemergent chest CT could further evaluate this. 3. Hepatic steatosis. 4. Cholecystectomy. 5. Gastric surgical sutures. 6. Constipation. Transvaginal US 02/19/22 16:44 IMPRESSION: 1. Uterus is absent. 2. Ovaries are not seen bilaterally. 3. Negative for free fluid. Laboratory Results WBC 10.7 10^3/uL (4.0-10.0) H 02/19/22 13:48 RBC 4.22 10^6/uL (4.1-5.3) 02/19/22 13:48 Hgb 11.5 g/dL (11.5-15.3) 02/19/22 13:48 Hct 37.6 % (37.0-47.0) 02/19/22 13:48 MCV 89.1 fl (81-99) 02/19/22 13:48 MCH 27.3 pg (28.0-34.0) L 02/19/22 13:48 MCHC 30.6 g/dL (30.0-36.0) 02/19/22 13:48 RDW 13.9 % (12.1-15.1) 02/19/22 13:48 Plt Count 265 10^3/cmm (130-400) 02/19/22 13:48 MPV 10.0 fL (7.4-10.4) 02/19/22 13:48 Neut % (Auto) 71.6 % 02/19/22 13:48 Lymph % (Auto) 19.1 % 02/19/22 13:48 [place] % (Auto) 7.0 % 02/19/22 13:48 Eos % (Auto) 1.6 % 02/19/22 13:48 Baso % (Auto) 0.3 % 02/19/22 13:48 Neut # (Auto) 7.67 10^3/uL (1.8-7.7) 02/19/22 13:48 Lymph # (Auto) 2.1 10^3/uL (0.8-4.8) 02/19/22 13:48 [place] # (Auto) 0.8 10^3/uL (0.2-0.9) 02/19/22 13:48 Eos # (Auto) 0.2 10^3/uL (0.0-0.8) 02/19/22 13:48 Baso # (Auto) 0.0 10^3/uL (0.0-0.1) 02/19/22 13:48 Nucleated RBC % (auto) 0 % 02/19/22 13:48 Nucleated RBCs # 0.0 /100WBC 02/19/22 13:48 Sodium 136 mmol/L (136-145) 02/19/22 13:48 Potassium 3.5 mmol/L (3.5-5.1) 02/19/22 13:48 Chloride 97 mmol/L (98-107) L 02/19/22 13:48 Carbon Dioxide 27 mmol/L (22-29) 02/19/22 13:48 Anion Gap 15.5 (5-19) 02/19/22 13:48 BUN 13 mg/dL (6-20) 02/19/22 13:48 Creatinine 1.2 mg/dL (0.5-0.9) H 02/19/22 13:48 GFR Calculation 48.2 mL/min (90-130) L 02/19/22 13:48 Glucose 158 mg/dL (65-115) H 02/19/22 13:48 Calculated Osmolality 285 mOsm/kg (285-295) 02/19/22 13:48 Calcium 8.9 mg/dL (8.5-10.5) 02/19/22 13:48 Total Bilirubin 0.3 mg/dL (0.15-1.2) 02/19/22 13:48 AST 21 U/L (0-32) 02/19/22 13:48 ALT 12 U/L (0-33) 02/19/22 13:48 Alkaline Phosphatase 105 U/L (35-105) 02/19/22 13:48 Total Protein 6.4 g/dL (6.6-8.7) L 02/19/22 13:48 Albumin 3.5 g/dL (3.5-5.2) 02/19/22 13:48 Globulin 2.9 g/dL (1.3-4.6) 02/19/22 13:48 Lipase 11 U/L (13-60) L 02/19/22 13:48 HCG, Qual Negative (Negative) 02/19/22 13:32 Urine Color Yellow (Yellow) 02/19/22 13:30 Urine Appearance Clear (CLEAR) 02/19/22 13:30 Urine pH 5 (5-7) 02/19/22 13:30 Ur Specific [place] 1.020 (1.005-1.030) 02/19/22 13:30 Urine Protein Neg (Negative) 02/19/22 13:30 Urine Glucose (UA) Norm (Normal) 02/19/22 13:30 Urine Ketones Negative (Negative) 02/19/22 13:30 Urine Blood Neg (Negative) 02/19/22 13:30 Urine Nitrate Negative (Negative) 02/19/22 13:30 Urine Bilirubin Neg (Negative) 02/19/22 13:30 Urine Urobilinogen Neg mg/dL (Negative) 02/19/22 13:30 Ur Leukocyte Esterase Negative (Negative) 02/19/22 13:30 Imaging Data Other Imaging: Radiologist's impression: [address] [address] Ultrasound Report Signed Patient: Abena Galan Unit #: [id number] : 1975 Age/Sex: 46 / F ADM Date: 02/19/22 Loc: ER Room/Bed: Attending Dr: Ordering Provider/Ordering MD: Mayank Omalley MD Date of Service: 02/19/22 Procedure(s): US transvaginal [id number] Accession Number(s): [id number] Report Number: [id number] PROCEDURE INFORMATION: Exam: US Pelvis, Transvaginal Exam date and time: 02/19/2022 5:07 PM Age: 46 years old Clinical indication: Abdominal pain; Right lower quadrant; Additional info: Eval for R sided torsion TECHNIQUE: Imaging protocol: Real-time transvaginal pelvic ultrasound with image documentation. Transvaginal imaging was used for better evaluation of the endometrium, adnexa, and/or cervix. COMPARISON: US Pelvis Female [id number] 03/02/2019 1:46 AM FINDINGS: Uterus: Uterus is absent. Right ovary/adnexa: Normal. No mass. Normal ovarian blood flow. Left ovary/adnexa: Normal. No mass. Normal ovarian blood flow. Intraperitoneal space: Negative for free fluid. Other findings: Ovaries are not seen bilaterally. US/US transvaginal [id number] IMPRESSION: 1. Uterus is absent. 2. Ovaries are not seen bilaterally. 3. Negative for free fluid. ? Dictated By: Mickey Keller MD Signed By: Mickey Keller MD Signed Date/Time: 02/19/221811 DD/ [address] [address] [address] Scan Report Signed Patient: Abena Galan Unit #: [id number] : 1975 Age/Sex: 46 / F ADM Date: 02/19/22 Loc: ER Room/Bed: Attending Dr: Ordering Provider/Ordering MD: Mayank Omalley MD Date of Service: 02/19/22 Procedure(s): CT abdomen pelvis w con* [id number] Accession Number(s): [id number] Report Number: [id number] PROCEDURE INFORMATION: Exam: CT Abdomen And Pelvis With Contrast Exam date and time: 02/19/2022 4:07 PM Age: 46 years old Clinical indication: Abdominal pain; Additional info: Abd pain, lightheadedness TECHNIQUE: Imaging protocol: Computed tomography of the abdomen and pelvis with contrast. Radiation optimization: All CT scans at this facility use at least one of these dose optimization techniques: automated exposure control; mA and/or kV adjustment per patient size (includes targeted exams where dose is matched to clinical indication); or iterative reconstruction. Contrast material: OMNIPAQUE 350; Contrast volume: 80 ml; Contrast route: INTRAVENOUS (IV);? COMPARISON: CT abdomen pelvis w con* [id number] 03/04/2019 8:47 AM RADIATION DOSE METRICS: Total DLP (mGy-cm): 1231.03 FINDINGS: Lungs: Left lower lobe 7.3 mm pulmonary nodule incompletely visualized, nonemergent chest CT could further evaluate this. Liver: Hepatic steatosis. Gallbladder and bile ducts: Cholecystectomy. Pancreas: Normal. No ductal dilation. Spleen: Normal. No splenomegaly. Adrenal glands: Normal. No mass. Kidneys and ureters: Normal. No hydronephrosis. Stomach and bowel: Prominent fluid in the small bowel without dilation may reflect an enteritis. Gastric surgical sutures. Constipation. Appendix: No evidence of appendicitis. Intraperitoneal space: Unremarkable. No free air. No significant fluid collection. Vasculature: Unremarkable. No abdominal aortic aneurysm. Lymph nodes: Unremarkable. No enlarged lymph nodes. Urinary bladder: Unremarkable as visualized. Reproductive: Unremarkable as visualized. Bones/joints: Unremarkable. No acute fracture. Soft tissues: Unremarkable. CT/CT abdomen pelvis w con* [id number] IMPRESSION: 1. Prominent fluid in the small bowel without dilation may reflect an enteritis. 2. Left lower lobe 7.3 mm pulmonary nodule incompletely visualized, nonemergent chest CT could further evaluate this. 3. Hepatic steatosis. 4. Cholecystectomy. 5. Gastric surgical sutures. 6. Constipation. ? Dictated By: Mickey Keller MD Signed By: Mickey Keller MD Signed Date/Time: 02/19/22 1637 DD/ 1607 Discharge Plan Discharge Patient Disposition: Home Clinical Impression: Abdominal pain Condition: Stable Prescriptions: New acetaminophen 500 mg tablet 500 mg PO Q6H PRN (Reason: pain) 5 Days Qty: 20 0RF Pepcid 20 mg tablet 20 mg PO BID PRN (Reason: abdominal pain) 10 Days Qty: 20 0RF ondansetron 4 mg tablet,disintegrating 4 mg PO TID PRN (Reason: nausea and vomiting) 4 Days Qty: 12 0RF Maalox Advanced 1,000-60 mg tablet,chewable 1 tab PO TID PRN (Reason: abdominal pain) 7 Days Qty: 21 0RF No Action gabapentin [Neurontin] 800 mg tablet 800 mg PO TID@09,15,21 butorphanol 10 mg/mL [place],Non-Aerosol 1 spray INTRANASAL Q4H PRN (Reason: Migraine Headache) atorvastatin 40 mg Tablet 40 mg PO DAILY@20 omeprazole 40 mg Capsule,Delayed Release(Dr/Ec) 40 mg PO DAILY@09 furosemide [Lasix] 20 mg tablet 40 mg PO DAILY@09 Qty: 0 0RF oxycodone [OxyContin] 30 mg tablet,oral only,ext.rel.12 hr 10 mg PO BID@07,19 Qty: 0 0RF Vitamin B-12 100 mcg Tablet 100 mcg PO DAILY chlorthalidone 25 mg tablet 25 mg PO DAILY amlodipine 5 mg tablet 5 mg PO DAILY quetiapine 100 mg tablet 100 mg PO BEDTIME Vitamin C 500 mg Capsule, Extended Release 500 mg PO DAILY oxycodone-acetaminophen 7.5-325 mg tablet 1 tab PO Q4H lisinopril 40 mg tablet 40 mg PO DAILY ondansetron 4 mg Tablet,Disintegrating 4 mg PO Q6H PRN (Reason: Nausea) bupropion HCl 150 mg tablet extended release 24 hr 150 mg PO DAILY hydrochlorothiazide 12.5 mg tablet 12.5 mg PO DAILY Women's Daily Caplet 27 mg iron-400 mcg Tablet 1 tab PO DAILY Ozempic 0.25 mg or 0.5 mg(2 mg/1.5 mL) pen injector 0.25 mg SUBCUT Q7D albuterol sulfate 90 mcg/actuation Hfa Aerosol Inhaler 2 puff INHALATION Q6H PRN (Reason: Shortness Of Breath Or Wheezing) Discharge Orders: Discharge ED (Routine); Ordered 02/19/22 Ordered By: Mayank Omalley Referrals: Brendan Ramey [Primary Care Provider] - Discharge Diet: Advance as tolerated Discharge Activity: Increase activity as tolerated Patient Instructions: Abdominal Pain (ED) Activity Restrictions/Additional Instructions: Please come back if you have any worsening abdominal pain, fever or chills, nausea or vomiting, diarrhea, blood in the stool, inability hold down liquid or solids, or any new concerning complaints. Coding Level of Care Code ED Jet Dyeing Machine Operator for Jolly Fwd Exam Comprehensive
[2022-02-19 14:25] LABS: Alanine Aminotransferase 12 U/L (0-33); Albumin Level 3.5 g/dL (3.5-5.2); Alkaline Phosphatase 105 U/L (35-105); Anion Gap 15.5 (5-19); Aspartate Amino Transferase 21 U/L (0-32); Blood Urea Nitrogen 13 mg/dL (6-20); Calcium 8.9 mg/dL (8.5-10.5); Carbon Dioxide 27 mmol/L (22-29); Chloride 97 mmol/L (98-107); Globulin 2.9 g/dL (1.3-4.6); Glomerular Filtration Rate 48.2 mL/min (90-130); Glucose 158 mg/dL (65-115); Lipase 11 U/L (13-60); Osmolality Calculated 285 mOsm/kg (285-295); Potassium 3.5 mmol/L (3.5-5.1); Sodium 136 mmol/L (136-145); Total Bilirubin 0.3 mg/dL (0.15-1.2); Total Protein 6.4 g/dL (6.6-8.7)
[2022-02-19 14:30] LABS: HCG Qualitative Urine. Negative (Negative)
[2022-02-19] MEDS: sodium chloride 0.9% 1,000 ML 999 ML IV ×3 (15:25→19:11)
[2022-02-19] MEDS: famotidine 20 mg/2 mL INJ IVP (15:26)
[2022-02-19] MEDS: fentaNYL 50 mcg/mL INJ 2mL IVP ×2 (15:27→16:38)
[2022-02-19] MEDS: iohexol 350 mg/mL 100 mL Btl IV (16:05)
[2022-02-19] MEDS: ceFAZolin 1,000 MG in sodium chloride 0.9% (plus) 50 ML 100 MG IV (16:38)
--- NOTE | 2022-02-19 16:44 | USR_ITS ---
PROCEDURE INFORMATION: Exam: US Pelvis, Transvaginal Exam date and time: 02/19/2022 5:07 PM Age: 46 years old Clinical indication: Abdominal pain; Right lower quadrant; Additional info: Eval for R sided torsion TECHNIQUE: Imaging protocol: Real-time transvaginal pelvic ultrasound with image documentation. Transvaginal imaging was used for better evaluation of the endometrium, adnexa, and/or cervix. COMPARISON: US Pelvis Female [id number] 03/02/2019 1:46 AM FINDINGS: Uterus: Uterus is absent. Right ovary/adnexa: Normal. No mass. Normal ovarian blood flow. Left ovary/adnexa: Normal. No mass. Normal ovarian blood flow. Intraperitoneal space: Negative for free fluid. Other findings: Ovaries are not seen bilaterally. US/US transvaginal [id number] IMPRESSION: 1. Uterus is absent. 2. Ovaries are not seen bilaterally. 3. Negative for free fluid.
[2022-02-19] MEDS: lidocaine 2% viscous 15 ML, aluminum-mag hydrox-simethicon 30 ML, sucralfate oral liq 1 GM PO (18:00)
[2022-02-19 18:25] VITALS: BP 183/88; PULSE 111; RESP 14
[2022-02-19 18:49] VITALS: BP 177/82
[2022-02-19] MEDS: HYDROmorphone 1 mg/mL INJ 1 mL 0.5 MG IVP (19:14)
[2022-02-19 19:47] VITALS: BP 167/94; PULSE 107; RESP 16; O2SAT 97
== END 2022-02-19 19:55 | disposition home or self-care (01) ==
PROVIDERS: Family Medicine; Emergency Provider Emergency Medicine; PCP Physician Assistant Medical
DX: R10.9 Unspecified abdominal pain (principal); I10 Essential (primary) hypertension
CPT/HCPCS: 36415; 74177; 76830; 80053; 81003; 81025; 83690; 85025; 96374; 96375; 96376; 99285; J0690; J1170; J3010; J3490; J7030; Q9967

== ENCOUNTER → 2022-03-31 13:38 | Outpatient (BNVA) | payer MEDICARE, MEDICAID, SELFPAY | PROVIDERS: PCP Physician Assistant Medical; Visit Provider Podiatrist Foot & Ankle Surgery | DX: M21.611 Bunion of right foot (principal); T84.84XA Pain due to internal orthopedic prosthetic devices, implants and grafts, initial encounter; Y79.3 Surgical instruments, materials and orthopedic devices (including sutures) associated with adverse incidents | CPT/HCPCS: 73630; 99205 ==

== ENCOUNTER 2022-06-19 07:55 | Day surgery (SDC) | payer MEDICARE, MEDICAID, SELFPAY ==
[2022-06-18 09:53] VITALS: BMI 37.2
[2022-06-19] VITALS (9 sets, daily range): BP systolic 123–149; BP diastolic 78–91; PULSE 86–100; RESP 14–20; TEMP 36.1–37.2; O2SAT 97–100
--- NOTE | 2022-06-19 | XR_ITS ---
WS: [id number] XR foot RT 2V [id number] REASON FOR EXAM: MATILDE PICS FINDINGS: Previously existing distal first metatarsal osteotomy with screw fixation. Osteotomy of the proximal phalanx of the right great toe with small plate and screw fixation. Plate and screw with additional long screw arthrodesis of the first tarsal metatarsal joint. Surgical appliances are in proper position and alignment. XR/XR foot RT 2V [id number] IMPRESSION: Osteotomy and arthrodesis of the right great toe without abnormality. .
--- NOTE | 2022-06-19 06:27 | P.OP_ITS ---
Operative Report Date of procedure: June 19, 2022 Pre-op diagnosis: Right bunion, retained hardware right foot Post-op diagnosis: Same Procedure done: Lapidus bunionectomy and Danie osteotomy, right foot. CPT code 64324, 06564. Implants: [place] 4 mm compression screw [place] primary Lapidus plate with 3.5 mm locking and nonlocking screws 3-0 Vicryl 4-0 Vicryl 4 nylon Specimens removed/disposition: None Surgeon: Balaji Brown D.P.M. Production Tool Engineer: Shantelle Estimated blood loss: 5 See intraoperative documentation IV fluids: None Urine output: None Complications: None Brief History: 46-year-old pleasant female history of head procedure right bunion with recurrence and failure to respond to conservative treatments of wide accommodative shoes, supportive shoes, activity modifications, stretching and anti-inflammatories as well as spacing and padding.? Would like to discuss surgical revision as timing is right for her at this time.? I reviewed at length with the patient, the risks, potential complications, benefits, alternatives, expectations, and typical outcomes associated with the surgery. The risks and potential complications were explained in detail, including but not limited to infection, wound dehiscence or soft tissue complications, bleeding and hematoma, chronic edema, neuritis or nerve damage producing numbness or chronic pain, CRPS, failure to relieve pain or worsening pain, thick / painful / unsightly scar, limited motion / stiffness, malposition, delayed union, malunion, or nonunion, fracture, reaction to implants, anesthetic complications, venous thromboembolism, and deformity recurrence.? I discussed the notion of no regrets with the patient as it pertains to complications and outcomes. The patient seemed to understand the nature of the proposed care and required convalescence. They asked appropriate questions, answered to their satisfaction. They are aware no guarantees can be made as to a satisfactory outcome and they understand there may be other possible unforeseen complications or outcomes not listed here that will be treated accordingly if they arise. There were no written or implied guarantees given to the patient. They gave informed consent to proceed. X-ray right foot 3 views weightbearing reviewed, per my interpretation: Hallux noted to be an abducted position. Tibial sesamoid position: 5. 1 - 2 IM angle is 17. Hallux abductus angle is 28 degrees Metatarsal adductus angle is 2 degrees Sieberg index of 3 mm. Headed screw x2 at the metaphyseal/distal diaphyseal juncture right first metatarsal Patient has a hammertoe of the fifth digit, right. Procedure: Under mild sedation the patient was brought to the operating room and placed on the operating table in supine position. A timeout was performed. Anesthesia was then administered by the anesthesia service. Local anesthesia was injected by myself consisting of 20 cc of 0.5% Marcaine plain in a right Alonzo block fashion. Additional 20 cc of Exparel infiltrated subcutaneously in a grid like fashion proximal to the operative site of the right right medial foot. Well- padded pneumatic tourniquet was applied to the right ankle. The right lower extremity was then scrubbed, prepped and draped utilizing normal aseptic technique. Right foot was exanguinated with an Esmarch bandage and the tourniquet was then inflated to 250 mmHg. Attention was directed to the dorsal medial aspect of the right first metatarsal base and medial cuneiform joint where a linear longitudinal incision was made medial and parallel to the extensor houses longus tendon through skin with a #15 blade with dissection carried down through subcutaneous tissue to the layer periosteum. Periosteal incision was made over the medial cuneiform coursing distally to encompass the base of the first metatarsal followed by distraction of the first metatarsal base and medial cuneiform joint and denuding of all articular surface of the distal aspect of the medial cuneiform and base of the first metatarsal followed by saline flush and subchondral drilling at the arthrodesis site. Subchondral drilling was performed into the distal aspect of the medial cuneiform and base of the first metatarsal. The first metatarsal was then reduced to reduce the intra metatarsal angle that was increased contributing to her bunion deformity and also derotated this was fixated with a homerun screw from dorsal distal to proximal plantar this was a [place] 4.0 mm headed screw with excellent bony apposition and compression noted, further stabilization fixation of the arthrodesis site was performed with a primary arthrodesis plate provided by [employer] with 3.5 mm locking and nonlocking screws to the dorsal medial aspect of the Lapidus bunionectomy site with excellent bony apposition and compression noted. Placement of hardware was noted to be excellent all 3 planes not violating joints this was confirmed with AP, oblique and lateral view of the right foot utilizing fluoroscopy. Hallux valgus was still appreciated in the great toe was abutting the second toe beginning the crossover necessitating an Danie osteotomy. A linear longitudinal incision was made at the medial aspect of the hallux at the level of the proximal phalanx. Care was taken to retract and preserve neurovascular and tendon structures. All bleeders were ligated and cauterized as necessary. Periosteal incision was made and Akinb osteotomy was performed this was a closing base wedge maintaining a l ateral cortical hinge, bone wedge was passed from the operative field, the phalanx was then reduced and fixated utilizing a 10 mm [place] compression screw with excellent bony apposition and compression noted. Hallux is rectus and smooth range of motion of the first metatarsophalangeal joint was appreciated. The medial column was rectus and reduced. Intraoperative fluoroscopy confirmed that the staple at the proximal phalanx did not violate the first metatarsal phalangeal joint. Both incisions were irrigated with copious amounts of sterile skin solution of periosteum reapproximated utilizing 3-0 Vicryl. Subcutaneous tissue was then reapproximated lysing 4-0 Vicryl and skin with 4-0 nylon. The incisions were dressed with Adaptic, sterile 4 x 4's, Kerlix and Bashir wrap. No hardware was removed this was not necessary and did not encounter previous hardware throughout the procedure. Cam boot was applied to the right lower extremity. Tourniquet was then deflated and a prompt hyperemic response was noted to the distal digits of the right foot. Patient tolerated the procedure and anesthesia well and was transferred to the PACU with vital signs stable and vascular status intact. Following a period of postop monitoring she will be discharged home is to remain nonweightbearing, is to elevate her right foot while resting, was provided a prescription for pain medication to be taken judiciously as needed. She was provided my cell phone number and at home care instructions. She will follow-up Wednesday next week for her first dressing change.
--- NOTE | 2022-06-19 06:27 | W.PM.OPSUD ---
Surgery/Procedure H&P Update DATE OF PROCEDURE: June 19, 2022 DATE H&P PERFORMED: 06/19/22 CHANGES TO PREVIOUS DOCUMENTATION: None PREOP DIAGNOSIS: Morbid obesity PLANNED PROCEDURE: Operation Date: 06/19/22 10:05 Proposed Procedures p Danie Osteotomy(Right) - Balaji Brown DPM s Bunionectomy Lapidus(Right) - FRANCHESCA Rodriguez possible Hardware Removal foot(Right) - Balaji Brown DPM
--- NOTE | 2022-06-19 06:28 | P.HP_ITS ---
Providers/Chief Complaint Primary Care Provider: Brendan Ramey History of Present Illness Abena Galan is a 46 year old female presents with complaints of a recurrence of bunion deformity to the right foot and possible painful hardware.? States that in her 30s she had a right bunionectomy performed.? She has noticed a gradual recurrence of the deformity and increased pain to the right bunion.? Has been trying to manage the pain with supportive shoes, wide toe box, anti- inflammatories, stretching as well as padding and spacers without relief.? Would like to discuss possible hardware removal and revision of the bunion deformity.? Patient denies any subjective nausea, vomiting, fever, chills, shortness of breath or chest pain.? Review of Systems General: Reports: 10 or more systems reviewed and unremarkable except in HPI and below Const: Denies: fever(s) or chills Eyes: Denies: change in vision Card: Denies: chest pain or palpitations Resp: Denies: dyspnea or productive cough GI: Denies: abdominal pain, nausea or vomiting : Denies: flank pain Musc: Reports: extremity pain, joint pain, joint stiffness, limited range of motion and deformity Skin/Breast: Reports: skin tenderness; Denies: rash Neuro: Reports: difficulty walking; Denies: numbness in extremities, sensory changes or frequent falls Psych: Denies: suicidal ideation Bonifacio/Lymph: Denies: easy bruising Medications/Allergies Home Medications Medication Instructions Recorded Confirmed Last Taken Type gabapentin 800 mg tablet 800 mg PO TID@09,15,21 07/03/19 06/18/22 06/17/22 History (Neurontin) atorvastatin 40 mg tablet 40 mg PO DAILY@04/25/20 06/18/22 06/17/22 History butorphanol 10 mg/mL nasal spray 1 spray intranasal Q4H PRN 04/25/20 06/18/22 06/17/22 History Migraine Headache omeprazole 40 mg capsule,delayed 40 mg PO DAILY@04/25/20 06/18/22 06/17/22 History release furosemide 20 mg tablet (Lasix) 40 mg PO DAILY@ #0 tabs 04/26/20 06/18/22 06/17/22 Rx albuterol sulfate 90 mcg/actuation 2 puff inhalation Q6H PRN 02/19/22 06/18/22 06/17/22 History aerosol inhaler Shortness Of Breath Or Wheezing amlodipine 5 mg tablet 5 mg PO DAILY 02/19/22 06/18/22 06/17/22 History ascorbic acid (vitamin C) 500 mg 500 mg PO DAILY 02/19/22 06/18/22 06/17/22 History capsule,extended release (Vitamin C) bupropion HCl 150 mg 24 hr tablet, 150 mg PO DAILY 02/19/22 06/18/22 06/17/22 History extended release chlorthalidone 25 mg tablet 25 mg PO DAILY 02/19/22 06/18/22 06/17/22 History cyanocobalamin (vitamin B-12) 100 100 mcg PO DAILY 02/19/22 06/18/22 06/17/22 History mcg tablet (Vitamin B-12) hydrochlorothiazide 12.5 mg tablet 12.5 mg PO DAILY 02/19/22 06/18/22 06/17/22 History lisinopril 40 mg tablet 40 mg PO DAILY 02/19/22 06/18/22 06/17/22 History multivitamin-iron 27 mg-folic acid 1 tab PO DAILY 02/19/22 06/18/22 06/17/22 History 400 mcg-calcium and minerals tablet ondansetron 4 mg disintegrating 4 mg PO Q6H PRN Nausea 02/19/22 06/18/22 06/17/22 History tablet quetiapine 100 mg tablet 100 mg PO BEDTIME 02/19/22 06/18/22 06/17/22 History semaglutide 0.25 mg or 0.5 mg (2 0.25 mg SUBCUT Q7D 02/19/22 06/18/22 06/17/22 History mg/1.5 mL) subcutaneous pen injector (Ozempic) Allergies Allergy/AdvReac Type Severity Reaction Status Date / Time erythromycin base Allergy ALGY-Hives Verified 06/18/22 09:46 ketorolac [From Toradol] Allergy ALGY-Rash Verified 06/18/22 09:46 codeine AdvReac ADR-Itching Verified 06/18/22 09:46 PFSH PFSH: Medical History Bipolar disorder Bipolar disorder, current episode depressed, moderate Generalized anxiety disorder GERD (gastroesophageal reflux disease) Hypertension Migraine headache Morbid obesity PTSD (post-traumatic stress disorder) Sleep apnea Surgical History History of cholecystectomy in 2013 History of colonoscopy History of esophagogastroduodenoscopy (EGD) History of hysterectomy 2012, done due to endometriosis Family History Mother Anesthesia complication Denies family history of Bleeding disorder Social History Smoking and tobacco status: never smoked Alcohol intake: former Lives independently: Yes Household members: children Current occupational status: disabled History of recent travel: No Dietary Habits: Caffeine: No Vital Signs Weight: Weight last 48 hrs Weight 210 lb Physical Exam Narrative: EXAM NARRATIVE: Patient is alert and oriented ?3 and in no acute distress.? The following is a focused bilateral lower extremity exam. VASCULAR: Dorsalis pedis and posterior tibial arteries palpable +2.? Capillary refill time less than 3 seconds to the distal hallux bilaterally. Calf is supple and nontender proximally and distally.? No pedal edema appreciated.? Pedal hair growth present. NEUROLOGICAL: Epicritic and protopathic sensations grossly intact to the lower extremities.? +2 Achilles tendon reflex noted bilaterally.? Negative Tinel sign upon percussion of lower extremity nerves. DERMATOLOGICAL: Lower extremity skin is well-hydrated, normal texture and turgor.? There are no open sores or lesions noted to the lower extremities.? No erythema or ecchymosis present to the bilateral legs and feet.? Cicatrix to the right medial dorsal forefoot. MUSCULOSKELETAL: Pain to palpation at right bunion deformity.? Right hallux valgus and osseous prominence at the medial aspect of the right first metatarsal phalangeal joint.? Hypermobility at the right first metatarsal.? Hallux is not track bound to the right.? No palpable mass along the course of the plantar fascia appreciated.? No pain to palpation along the course of the bilateral Achilles tendon.? No pain to palpation along the course posterior tibial tendon or peroneal tendons.? No pain with [id number] compression of calcaneus, bilaterally.? Muscle strength is 5/5 in all 3 cardinal planes pain-free without guarding to the foot and ankle, bilaterally. CARDIOVASCULAR: S1, S2, normal rate, normal rhythm. Dorsalis pedis and posterior tibial arteries palpable. LUNGS: Clear to auscltation, no use of acessory muscles, no crackles or wheezes. A&P Assessment and plan (1) Right foot pain: (2) Bunion, right: (3) Painful orthopaedic hardware: Plan 46-year-old pleasant female history of head procedure right bunion with recurrence and failure to respond to conservative treatments of wide accommodative shoes, supportive shoes, activity modifications, stretching and anti-inflammatories as well as spacing and padding.? Would like to discuss surgical revision as timing is right for her at this time.? I reviewed at length with the patient, the risks, potential complications, benefits, alternatives, expectations, and typical outcomes associated with the surgery. The risks and potential complications were explained in detail, including but not limited to infection, wound dehiscence or soft tissue complications, bleeding and hematoma, chronic edema, neuritis or nerve damage producing numbness or chronic pain, CRPS, failure to relieve pain or worsening pain, thick / painful / unsightly scar, limited motion / stiffness, malposition, delayed union, malunion, or nonunion, fracture, reaction to implants, anesthetic complications, venous thromboembolism, and deformity recurrence.? I discussed the notion of no regrets with the patient as it pertains to complications and outcomes. The patient seemed to understand the nature of the proposed care and required convalescence. They asked appropriate questions, answered to their satisfaction. They are aware no guarantees can be made as to a satisfactory outcome and they understand there may be other possible unforeseen complications or outcomes not listed here that will be treated accordingly if they arise. There were no written or implied guarantees given to the patient. They gave informed consent to proceed. X-ray right foot 3 views weightbearing reviewed, per my interpretation: Hallux noted to be an abducted position. Tibial sesamoid position: 5. 1 - 2 IM angle is 17. Hallux abductus angle is 28 degrees Metatarsal adductus angle is 2 degrees Sieberg index of 3 mm. Headed screw x2 at the metaphyseal/distal diaphyseal juncture right first metatarsal Patient has a hammertoe of the fifth digit, right. Right Lapidus/Danie with possible hardware removal right foot scheduled June 19, 2022 outpatient, general LMA, supine, gurney, mini C arm, [place] 28, 60 minutes. Coding Level of Care Code Acute Code for Chg Fwd Diagnoses Right foot pain M79.671 Bunion, right M21.611 Painful orthopaedic hardware T84.84XA
[2022-06-19] MEDS: gabapentin 300 mg Capsule PO (08:17)
[2022-06-19] MEDS: sodium chloride 0.9% 1,000 ML 30 ML IV (08:17)
--- NOTE | 2022-06-19 10:32 | ANES.PREANE2 ---
Pre-Anesthetic Assessment Height/Weight: Height 1.6 m Weight 95.254 kg Temp Pulse Resp BP Pulse Ox O2 Del Method 99.0 F 92 18 139/88 98 06/19/22 08:12 06/19/22 08:12 06/19/22 08:12 06/19/22 08:12 06/19/22 08:12 06/19/22 08:18 Preop Diagnosis: Bunion and home retained hardware, right foot. Operation Date: 06/19/22 10:05 Proposed Procedures p Danie Osteotomy(Right) - Balaji Brown DPM s Bunionectomy Lapidus(Right) - Balaji Brown DPM s possible Hardware Removal foot(Right) - Balaji Brown DPM Familial anesthetic complications: none Was Beta Lucero taken within 24 hours: N/A Was Clonidine taken within 24 hours: N/A Last intake: Intake Last Liquid Date 06/18/22 Last Liquid Time 23:30 Last Solid Date 06/18/22 Last Solid Time 21:30 Social No alcohol and No tobacco Exam alert, oriented x 3, clear to auscultation bilaterally and regular rate & rhythm Airway Submandibular: within normal limits Cervical ROM: within normal limits Mallampati: Class II Dentition: full CV/HEM Hypertension GI Gastroesophageal Reflux Disease Metabolic Hyperlipidemia and Morbid Obesity Neuropsych Anxiety, Bipolar, Depression and Neuropathy Anesthetic Plan ASA status: 3 Anesthesia: Choice Medications/Allergies Home Medications Medication Instructions Recorded Confirmed Last Taken Type gabapentin 800 mg tablet 800 mg PO TID@09,15,07/03/19 06/18/22 06/17/22 History (Neurontin) atorvastatin 40 mg tablet 40 mg PO DAILY@04/25/20 06/18/22 06/17/22 History butorphanol 10 mg/mL nasal spray 1 spray intranasal Q4H PRN 04/25/20 06/18/22 06/17/22 History Migraine Headache omeprazole 40 mg capsule,delayed 40 mg PO DAILY@04/25/20 06/18/22 06/18/22 History release furosemide 20 mg tablet (Lasix) 40 mg PO DAILY@ #0 tabs 04/26/20 06/18/22 06/17/22 Rx albuterol sulfate 90 mcg/actuation 2 puff inhalation Q6H PRN 02/19/22 06/18/22 06/17/22 History aerosol inhaler Shortness Of Breath Or Wheezing amlodipine 5 mg tablet 5 mg PO DAILY 02/19/22 06/18/22 06/19/22 History ascorbic acid (vitamin C) 500 mg 500 mg PO DAILY 02/19/22 06/18/22 06/17/22 History capsule,extended release (Vitamin C) bupropion HCl 150 mg 24 hr tablet, 150 mg PO DAILY 02/19/22 06/18/22 06/17/22 History extended release chlorthalidone 25 mg tablet 25 mg PO DAILY 02/19/22 06/18/22 06/17/22 History cyanocobalamin (vitamin B-12) 100 100 mcg PO DAILY 02/19/22 06/18/22 06/17/22 History mcg tablet (Vitamin B-12) hydrochlorothiazide 12.5 mg tablet 12.5 mg PO DAILY 02/19/22 06/18/22 06/17/22 History lisinopril 40 mg tablet 40 mg PO DAILY 02/19/22 06/18/22 06/17/22 History multivitamin-iron 27 mg-folic acid 1 tab PO DAILY 02/19/22 06/18/22 06/17/22 History 400 mcg-calcium and minerals tablet ondansetron 4 mg disintegrating 4 mg PO Q6H PRN Nausea 02/19/22 06/18/22 06/17/22 History tablet quetiapine 100 mg tablet 100 mg PO BEDTIME 02/19/22 06/18/22 06/18/22 History semaglutide 0.25 mg or 0.5 mg (2 0.25 mg SUBCUT Q7D 02/19/22 06/18/22 06/15/22 History mg/1.5 mL) subcutaneous pen injector (Ozempic) Allergies Allergy/AdvReac Type Severity Reaction Status Date / Time erythromycin base Allergy ALGY-Hives Verified 06/18/22 09:46 ketorolac [From Toradol] Allergy ADR-Itching Verified 06/19/22 08:16 codeine AdvReac ADR-Itching Verified 06/18/22 09:46 Current Medications Generic Name Dose Route Start Last Admin Trade Name Freq PRN Reason Stop Dose Admin Sodium Chloride 1,000 mls @ 30 mls/hr 06/19/22 08:15 06/19/22 08:17 Sodium Chloride 0.9% IV 06/20/22 08:14 30 mls/hr .Q24H FAHAD Administration PFSH Anesthesia Medical History Bipolar disorder Bipolar disorder, current episode depressed, moderate Generalized anxiety disorder GERD (gastroesophageal reflux disease) Hypertension Migraine headache Morbid obesity PTSD (post-traumatic stress disorder) Sleep apnea Surgical History History of cholecystectomy in 2012 History of colonoscopy History of esophagogastroduodenoscopy (EGD) History of hysterectomy 2012, done due to endometriosis Family History Mother Anesthesia complication Denies family history of Bleeding disorder Social History Smoking and tobacco status: never smoked Alcohol intake: former Lives independently: Yes Household members: children Current occupational status: disabled History of recent travel: No Data Anesthesia Cardiac Studies: Echocardiogram Ultrasound 04/25/20 Sestamibi Stress Test (Cardiology) 04/25/20
[2022-06-19] MEDS: ceFAZolin 2,000 MG in sodium chloride 0.9% (plus) 50 ML 100 MG IV (11:02)
[2022-06-19] MEDS: fentaNYL 50 mcg/mL INJ 2mL 100 MCG IVP (12:22)
[2022-06-19] MEDS: ondansetron 2 mg/ML SDV 2 mL 4 MG IVP (12:27)
--- NOTE | 2022-06-19 12:47 | ANE.PACU2 ---
Inpatient post-anesthesia follow up: Airway intact: Yes Vital signs: Temperature 99.0 F Pulse Rate 91 Respiratory Rate 18 Blood Pressure 127/87 Pulse Oximetry 97 Oxygen Delivery Me thod Room Air Oxygen Flow Rate 6 Fraction of Inspir ed Oxygen Hydration adequate: Yes Nausea and vomiting: No Pain level: 2 Mental status: Baseline
[2022-06-19] MEDS: HYDROcodone-acetaminophen 10-325 mg Tablet 1 TAB PO (13:01)
== END 2022-06-19 13:18 | disposition home or self-care (01) ==
PROVIDERS: PCP Physician Assistant Medical; Visit Provider Podiatrist Foot & Ankle Surgery
PROC: (CPT 28298; principal; 2022-06-19 09:45)
PROC: (CPT 28297; 2022-06-19 09:45)
DX: M21.611 Bunion of right foot (principal); I10 Essential (primary) hypertension; K21.9 Gastro-esophageal reflux disease without esophagitis; E78.5 Hyperlipidemia, unspecified; E66.01 Morbid (severe) obesity due to excess calories; Z68.37 Body mass index [BMI] 37.0-37.9, adult; F41.9 Anxiety disorder, unspecified; G47.30 Sleep apnea, unspecified
CPT/HCPCS: 28297; 28298; 73620; 76000; A4216; C1713; C9290; J0690; J1100; J2250; J2405; J2704; J3010; J3490; J7030

== ENCOUNTER → 2022-07-02 15:19 | Outpatient (BNVA) | payer MEDICARE, MEDICAID, SELFPAY | PROVIDERS: PCP Physician Assistant Medical; Visit Provider Podiatrist Foot & Ankle Surgery | DX: Z98.890 Other specified postprocedural states (principal) | CPT/HCPCS: 73630; 99024 ==

== ENCOUNTER → 2022-07-16 15:03 | Outpatient (BNVA) | payer MEDICARE, MEDICAID, SELFPAY | PROVIDERS: PCP Physician Assistant Medical; Visit Provider Podiatrist Foot & Ankle Surgery | DX: Z98.890 Other specified postprocedural states (principal); M21.611 Bunion of right foot; M72.2 Plantar fascial fibromatosis | CPT/HCPCS: 73630; 99213 ==

== ENCOUNTER → 2022-08-04 13:00 | Outpatient (BNVA) | payer MEDICARE, MEDICAID, SELFPAY | PROVIDERS: PCP Physician Assistant Medical; Visit Provider Podiatrist Foot & Ankle Surgery | DX: Z98.890 Other specified postprocedural states (principal); M21.611 Bunion of right foot; M72.2 Plantar fascial fibromatosis | CPT/HCPCS: 73630; 99024 ==

== ENCOUNTER → 2023-04-14 10:45 | Outpatient (BNVA) | payer MEDICARE, MEDICAID, SELFPAY | PROVIDERS: PCP Physician Assistant Medical; Referring Provider Nurse Practitioner Family; Visit Provider Internal Medicine Cardiovascular Disease | DX: R07.9 Chest pain, unspecified (principal); Z01.810 Encounter for preprocedural cardiovascular examination; I10 Essential (primary) hypertension; F41.1 Generalized anxiety disorder; E66.01 Morbid (severe) obesity due to excess calories; F31.32 Bipolar disorder, current episode depressed, moderate; Z68.37 Body mass index [BMI] 37.0-37.9, adult | CPT/HCPCS: 93005; 99214 ==

== ENCOUNTER → 2024-01-07 08:15 | Outpatient (BNVA) | payer MEDICARE, MEDICAID, SELFPAY | PROVIDERS: PCP Physician Assistant Medical; Referring Provider Physician Assistant Medical; Visit Provider Specialist | DX: M79.2 Neuralgia and neuritis, unspecified (principal); G43.909 Migraine, unspecified, not intractable, without status migrainosus; G43.711 Chronic migraine without aura, intractable, with status migrainosus; M54.81 Occipital neuralgia | CPT/HCPCS: 64405; 64450; 99204; J1010; J3490 ==

== ENCOUNTER → 2024-03-28 08:16 | Outpatient (BNVA) | payer MEDICARE, MEDICAID, SELFPAY | PROVIDERS: PCP Physician Assistant Medical; Visit Provider Student in an Organized Health Care Education/Training Program | DX: M25.551 Pain in right hip (principal); M25.552 Pain in left hip; M16.11 Unilateral primary osteoarthritis, right hip | CPT/HCPCS: 73522; 99204 ==

== ENCOUNTER → 2024-09-01 11:17 | Outpatient (BNVA) | payer MEDICARE, MEDICAID, SELFPAY | PROVIDERS: PCP Physician Assistant Medical; Visit Provider Student in an Organized Health Care Education/Training Program | DX: M16.11 Unilateral primary osteoarthritis, right hip (principal) | CPT/HCPCS: 20610; 77002; J3301; J9999 ==

== ENCOUNTER → 2024-12-06 15:31 | Outpatient (BNVA) | payer OTHER, MEDICAID, SELFPAY | PROVIDERS: PCP Nurse Practitioner Family; Visit Provider Student in an Organized Health Care Education/Training Program | DX: M25.551 Pain in right hip (principal); M16.11 Unilateral primary osteoarthritis, right hip | CPT/HCPCS: 73502; 99214 ==

== ENCOUNTER 2025-01-04 14:27 | Outpatient (CLI) | payer OTHER, MEDICAID, SELFPAY ==
--- NOTE | 2025-01-04 14:45 | CT_ITS ---
WS: [id number] CT RIGHT HIP, noncontrast HISTORY: RIGHT TOTAL HIP ARTHROPLASTY SURGICAL PLANNING TECHNIQUE: Protocol for [facility] total hip replacement has been obtained. This includes axial imaging through the RIGHT hip AND RIGHT KNEE. DLP: 869.98 mGy COMPARISON: Radiograph 12/06/2024 Marked narrowing of the RIGHT hip joint, greater than the LEFT. Acetabular osteophytic ridging. Small subchondral cysts. Bony hypertrophy and cortical thickening involving the femoral head neck junction. No fractures. Mild sigmoid diverticular disease. RIGHT knee: Very mild medial and patellofemoral compartment narrowing. No destructive bone lesions. CT/CT hip RT [facility] [id number] IMPRESSION: CT imaging provided for [facility] robotic total RIGHT HIP replacement.
== END 2025-01-04 14:28 | disposition home or self-care (01) ==
LOC: RAD 14:30
PROVIDERS: PCP Nurse Practitioner Family; Visit Provider Student in an Organized Health Care Education/Training Program
DX: M16.11 Unilateral primary osteoarthritis, right hip (principal); K57.30 Diverticulosis of large intestine without perforation or abscess without bleeding
CPT/HCPCS: 73700

== ENCOUNTER → 2025-01-05 08:25 | Outpatient (BNVA) | payer OTHER, MEDICAID, SELFPAY | PROVIDERS: PCP Nurse Practitioner Family; Visit Provider Family Medicine | DX: Z01.818 Encounter for other preprocedural examination (principal) | CPT/HCPCS: 80053; 81003; 85007; 85027 ==

== ENCOUNTER → 2025-01-17 13:23 | Outpatient (BNVA) | payer OTHER, MEDICAID, SELFPAY | PROVIDERS: PCP Nurse Practitioner Family; Visit Provider Physician Assistant | DX: M16.11 Unilateral primary osteoarthritis, right hip (principal) | CPT/HCPCS: 99213 ==

== ENCOUNTER 2025-01-29 13:55 | Observation (INO) | payer OTHER, MEDICAID, SELFPAY ==
[2025-01-29] VITALS (10 sets, daily range): BP systolic 111–125; BP diastolic 50–79; PULSE 44–59; RESP 10–20; TEMP 36.2–36.4; O2SAT 94–100; BMI 38.7; BMI 38.9
[2025-01-29] MEDS: acetaminophen 1,000 MG/100 ML PIGGYBACK 400 MG IV ×2 (10:33→21:33)
[2025-01-29 10:41] LABS: Hematocrit 39.0 % (36-47); Hemoglobin 12.30 g/dL (11.27-16.99); Mean Corpuscular HGB Conc 31.5 g/dL (30-55); Mean Corpuscular Hemoglobin 27.2 pg (27-33); Mean Corpuscular Volume 86.3 fl (85-98); Nucleated Red Blood Cells % 0 %; Platelet Count 325 10^3/cmm (157-399); Red Blood Count 4.52 10^6/uL (3.85-5.65); White Blood Count 7.98 10^3/uL (3.29-11.43)
[2025-01-29 11:00] LABS: Blood Urea Nitrogen 15 mg/dL (6-20); Calcium 9.2 mg/dL (8.5-10.5); Carbon Dioxide 26 mmol/L (22-29); Chloride 103 mmol/L (98-107); Creatinine Clr Calc Pharmacy 75.6232; Glucose 97 mg/dL (65-115); Osmolality Calculated 295 mOsm/kg (285-295); Sodium 142 mmol/L (136-145)
[2025-01-29 11:02] LABS: Anion Gap 16.8 (5-19); Potassium 3.8 mmol/L (3.5-5.1)
--- NOTE | 2025-01-29 11:09 | ANES.PREANE2 ---
Pre-Anesthetic Assessment Height/Weight: Height 1.6 m Weight 99.337 kg O2 Del Method Room Air 01/29/25 10:14 Operation Date: 01/29/25 13:30 Proposed Procedures p RIGHT Jaden Robot Total Hip Arthroplasty-Posterior(Right) - Ady Mcmillan DO Familial anesthetic complications: None Was Beta Lucero taken within 24 hours: N/A Was Clonidine taken within 24 hours: N/A Last intake: Intake Last Liquid Date 01/28/25 Last Liquid Time 23:00 Last Solid Date 01/28/25 Last Solid Time 23:00 Social No alcohol and No tobacco Exam alert, oriented x 3, clear to auscultation bilaterally and regular rate & rhythm Pulmonary Asthma and Sleep Apnea CV/HEM Congestive Heart Failure and Hypertension ECHO 04/25/20 Normal left ventricular size and systolic function, EF 55 %. No regional wall motion abnormalities. Trace tricuspid valve regurgitation. Estimated pulmonary artery peak systolic pressure of 41 mmHg There is no pericardial effusion. There are no intracardiac masses. No previous study is available for comparison. SESTAMIBI STRESS TEST 04/25/20 1. EKG not suggestive of ischemia 2. Lexiscan injection unremarkable. MYOCARDIAL PERFUSION SCAN 04/25/20 Myocardial perfusion imaging is normal and low probability for obstructive coronary artery disease.TID ratio is elevated which could be secondary to left ventricle hypertrophy in the absence of other parameters Chronic Renal Insufficiency GI Gastroesophageal Reflux Disease Metabolic Morbid Obesity Anesthetic Plan ASA status: 3 Anesthesia: Regional (specify below) Risk of > 500 ml blood loss (7ml/kg in children): No Medications/Allergies Home Medications ?Medication ?Instructions ?Recorded ?Confirmed ?Last Taken ?Type gabapentin 800 mg tablet 800 mg PO TID@,,07/03/19 01/26/25 01/28/25 History (Neurontin) omeprazole 40 mg capsule,delayed 40 mg PO DAILY@04/25/20 01/26/25 01/28/25 History release furosemide 20 mg tablet (Lasix) 40 mg (2 x 20 mg) PO DAILY@ #0 04/26/20 01/26/25 01/26/25 Rx tabs albuterol sulfate 90 mcg/actuation 2 puff inhalation Q6H PRN 02/19/22 01/26/25 06/17/22 History aerosol inhaler Shortness Of Breath Or Wheezing ascorbic acid (vitamin C) 500 mg 500 mg PO DAILY 02/19/22 01/26/25 01/26/25 History capsule,extended release (Vitamin C) cyanocobalamin (vitamin B-12) 100 100 mcg PO DAILY 02/19/22 01/26/25 01/26/25 History mcg tablet (Vitamin B-12) lisinopril 40 mg tablet 40 mg PO DAILY 02/19/22 01/26/25 01/28/25 History multivitamin-iron 27 mg-folic acid 1 tab PO DAILY 02/19/22 01/26/25 01/26/25 History 400 mcg-calcium and minerals tablet oxycodone-acetaminophen 7.5 mg-325 1 tab PO Q8H PRN pain 7 days #21 07/02/22 01/26/25 01/29/25 Rx mg tablet (Percocet) tabs amlodipine 5 mg tablet 10 mg PO DAILY 04/14/23 01/26/25 01/28/25 History carvedilol 6.25 mg tablet (Coreg) 6.25 mg PO BID #60 tabs 04/14/23 01/26/25 01/29/25 Rx meloxicam 15 mg tablet 15 mg PO DAILY #30 tabs 03/28/24 01/26/25 01/19/25 Rx Allergies Allergy/AdvReac Type Severity Reaction Status Date / Time erythromycin base Allergy ALGY-Hives Verified 01/17/25 14:05 ketorolac (From Toradol) Allergy ADR-Itching Verified 01/17/25 14:05 codeine AdvReac ADR-Itching Verified 01/17/25 14:05 Current Medications Generic Name Dose Route Start Last Admin Trade Name Freq PRN Reason Stop Dose Admin Sodium Chloride 1,000 mls @ 30 mls/hr 01/29/25 10:15 01/29/25 10:33 Sodium Chloride 0.9% IV 01/30/25 10:14 30 mls/hr .Q24H FAHAD Administration PFSH Anesthesia Medical History PTSD (post-traumatic stress disorder) Migraine headache Morbid obesity Generalized anxiety disorder Bipolar disorder, current episode depressed, moderate Bipolar disorder Hypertension GERD (gastroesophageal reflux disease) Sleep apnea Surgical History History of cholecystectomy in 2012 History of hysterectomy 2012, done due to endometriosis History of colonoscopy History of esophagogastroduodenoscopy (EGD) Family History Mother Anesthesia complication Denies family history of Bleeding disorder Social History Smoking and tobacco/nicotine status: never used tobacco/nicotine Alcohol intake: former Substance/Drug Use: never Lives independently: Yes Household members: children Current occupational status: disabled Data Anesthesia 01/29/25 10:30 01/29/25 10:30 Short CBC 01/29/25 Range/Units 10:30 WBC 7.98 (3.29-11.43) 10^3/uL Hgb 12.30 (11.27-16.99) g/dL Hct 39.0 (36-47) % MCV 86.3 (85-98) fl Plt Count 325 (157-399) 10^3/cmm Neut % (Auto) 73.1 % Neut # (Auto) 5.83 (1.8-7.7) 10^3/uL BMP 01/29/25 10:30 Sodium 142 Potassium 3.8 Chloride 103 Carbon Dioxide 26 BUN 15 Creatinine 1.0 H Glucose 97 Calcium 9.2 Cardiac Studies: Echocardiogram Ultrasound 04/25/20 Sestamibi Stress Test (Cardiology) 04/25/20
[2025-01-29] MEDS: midazolam 1 mg/mL INJ 2 mL 2 MG IVP (11:14)
--- NOTE | 2025-01-29 11:56 | W.PM.OPSUD ---
Surgery/Procedure H&P Update DATE OF PROCEDURE: January 29, 2025 DATE H&P PERFORMED: 01/17/25 H&P UPDATE INFORMATION: I have reviewed H&P completed within last 30 days, I have examined patient prior to procedure and No changes to prior documentation PREOP DIAGNOSIS: Right hip DJD PRIMARY INDICATION FOR PROCEDURE: Right hip DJD PLANNED PROCEDURE: Operation Date: 01/29/25 13:30 Proposed Procedures p RIGHT Jaden Robot Total Hip Arthroplasty-Posterior(Right) - Ady Mcmillan DO
[2025-01-29] MEDS: ceFAZolin 2,000 MG in sodium chloride 0.9% (plus) 50 ML 100 MG IV ×2 (12:34→21:31)
[2025-01-29] MEDS: tranexamic acid 1,000 mg/10mL SDV 1000 MG IV (13:00)
--- NOTE | 2025-01-29 15:15 | P.BOP_ITS ---
Date of Procedure: 01/29/2025 Surgeon: Ady Mcmillan DO Deflector Operator(s): Keshav Mcmillan PA-C Procedure(s) performed: Right total hip arthroplasty?Jaden robotic assisted (posterior approach) Findings of the procedure(s): Patient underwent procedure as planned without issues or complications Estimated blood loss: 125 mL Specimen(s) removed: Femoral head and acetabular reamings removed Post-operative diagnosis: Right hip DJD
--- NOTE | 2025-01-29 15:20 | P.OP_ITS ---
Operative Report Date of procedure: January 29, 2025 Surgeon: Ady Mcmillan DO Flatwork Finisher Hand: Keshav Mcmillan PA-C: PA was necessary for assistance in this case with leg positioning, hip reductions retraction and protection of neurovascular structures as well as assistance in implantation wound closure and dressing application. Procedure: Preop Diagnosis?Right hip degenerative joint disease Post-op diagnosis: Right hip degenerative joint disease Procedure done: Right total hip arthroplasty?robotic assisted Jaden?posterior?approach Implants: Philip total hip arthroplasty implants 52 mm cluster hole acetabular shell 6.5 mm x (30mm & 15 mm) acetabular screw Alpha code E MDM cementless metal liner Philip insignia hip stem high offset size 3 Alpha code E MDM +4 mm head Surgeon: Ady Mcmillan DO Estimated blood loss: 125 mL IV fluids: 1900 mL Urine output: 150 mL Complications: None Condition: stable Disposition: floor Brief History: Patient's been seen and worked up by myself in the outpatient setting and findings consistent with Right hip degenerative joint disease. Patient has failed conservative treatment this is causing her severe pain and inability to perform daily activities. We talked about his treatment options as far as nonoperative and operative intervention. he ultimately through shared decision-making would like to proceed with a Right total hip arthroplasty. we detailed out pt risk benefits complications alternatives to surgical and nonsurgical treatment options. Understanding patient risk for surgery patient elects to proceed with Right total hip arthroplasty robotic assisted Jaden utilizing a?posterior?approach. All questions answered. Patient elects proceed with surgery today. Procedure: Patient was seen evaluate in preoperative holding area.? Consent was reviewed and signed with patient.? Correct extremity was then marked.? Patient seen evaluate by anesthesia department once cleared for surgery pt was taken back to the operative suite.? Patient underwent spinal anesthesia per the anesthesia department.?This point time pt was then placed on the operative suite and table.? Pt was then placed in lateral decubitus patient worked with the Right hip up.? Patient was secured in the lateral decubitus position with pegboard. All bony prominences well-padded pt was properly secured to the bed.? At this point time the Right lower extremity was then prepped and draped in standard orthopedic fashion with care not to drape out the iliac wing for pelvic array placement.? Final timeout performed.? Patient received appropriate preoperative antibiotics. Started off with establishment of my pelvic array pins.? A small longitudinal incision was made directly over the iliac wing.? Sharp scalpel excision through skin and subcutaneous tissue directly onto bone.? Next I then loaded my pelvic pin.? This was then drilled through the iliac wing corridor with excellent fixation.? Next I then loaded the guide which was placed directly onto bone and then subsequently placed 2 more pins to secure fixation.? Next the pelvic array was then sent had excellent visualization with the Jaden robot and was secured. EKG pad was placed on the distal lateral aspect of the femur and sterile aseptic technique and use as my distal reference point. Next I proceeded with my standard?posterior?approach.? Sharp scalpel through skin and subcutaneous tissue this was centered over the greater trochanter.? I then utilized a Post elevator over the gluteus yuriy fascia.? Next the fascia was then split longitudinally with bipolar electrocautery.? Next a Charnley retractor was then placed.? All bone was then placed into the abductors.? A standard full-thickness release of the piriformis and the short external rotators along with the capsule to grade 1 full thick sleeve for later repair was then placed straight down to the lesser trochanter.? Lesser trochanter was then subsequently identified.? Prior to dislocating the hip we then placed our greater trochanter femur checkpoint.? We marked our appropriate checkpoint for referencing on pelvic array.? At this point in time we then established both of our checkpoints as well as referencing for leg lengths I utilized the EKG pad as my distal reference point. The legs were marked and traced to have appropriate position on the drapes to allow for accurate reading.? Preoperative leg lengths set. Once this was then established I then proceeded with dislocation of the femoral head.? At this point Hohmann's were then placed superiorly and inf eriorly along the femoral neck..? The sciatic nerve was protected throughout this case.? At this point time I then utilized the Jaden robot and referencing point to reference different aspects along the femoral head and neck for my appropriate neck length.? These were referenced on the inferior mid substance as well as up into the superior shoulder of the femoral neck.? This marked my oscillating saw was used to make my femoral neck cut.? Femoral head was then removed. Next the leg was placed in appropriate position and my anterior and?posterior?acetabular retractors then placed.? Next I excised the labrum and then remove the pulvinar.? I did do a small release of the inferior capsule which was severely taut to allow for easier placement of my reamers as well as reduction.? Acetabulum was thoroughly irrigated. At this point in time keeping my retractors in place I subsequently loaded up the Teranode robot for my acetabular reaming.?? Next I then set my 52mm reamer under the Teranode robot and subsequently held this with appropriate preplanned preop planned version of 40 degrees of abduction angle as well as 20 degrees of anteversion.? This preoperative plan was then subsequently made to accommodate for ranges of motion of impingement?that was assessed preoperatively utilizing the Teranode robotic software technology. I then subsequently reamed this to the appropriate depth with 52mm reamer.? We opened up the acetabular shell clusterhole of the 52mm Philip this was then loaded onto my impacting system and then I subsequently impacted this to appropriate depth.? This was then removed from the robot and I used the Jaden probe at the center to confirm on the CT scan?that this was down on bone which it was.? Next I then drilled and placed 2 acetabular screws with excellent fixation these were drilled and measured to be 30 mm and 15 mm this was in the?posterior?superior aspect of the acetabulum had excellent bite and fixation.? The cup was solid and had excellent press-fit fixation. At this point I then had to utilize a rongeur to remove all excessive overgrowth osteophytes throughout the socket inferiorly as well as posteriorly and then some superiorly as well. This had to be done in order to accommodate for the metal liner to snap into place. next, opened the alpha code E MDM cementless liner then subsequently placed in appropriate position and impacted into place.? I then placed a sponge into the acetabulum to protect the polyethylene while my femur preparation was performed.? At this point time I then utilized a small rongeur to clear off the shoulder of the femoral neck to clear out the soft tissue envelope for my box osteotome.? Next box osteotome was used a canal finder was placed as well as a lateral lysing rattail rasp.? Once I was appropriately lateralized I then sequentially broached up to a size 3 femoral stem.? This was impacted to appropriate depth and flushed with my femoral neck cut.? This point I loaded a standard size neck and subsequently reduced the hip.? At this point in time the hip was taken through range of motion before evaluating with the robot on leg lengths.? Patient appeared to have room to increase on leg lengths clinically.? The hip was taken through range of motion and had excellent stability with hip flexion and internal rotation with no evidence of instability had an slightly increased shuck.? This point time utilized the Jaden probe from our femur checkpoint down to her distal checkpoint. Satisfied with this trial implants, at this point I dislocated the hip and then called for my final implants with excellent stability in all planes.? Opened up [place] high offset insignia size 3 femur stem I then impacted then retrialed there was noticeable soft tissue interposition I then subsequently had to remove the femoral ball and doing that process this did remove the size 3 stem due to the Bell tapering as a result then we opened up the [place] high offset insignia size 3 femur stem. This was impacted to the same level resting on the calcar. This had excellent rotational stability. At this point in time I trialed up to a size +4 mm neck length which helped match with Jaden robotic assistance had appropriate leg lengths comparative to the contralateral hip and this was confirmed clinically as well as had excellent stability I felt as though this was best combination with leg lengths being equal as well as with stability and elected for the final +4 mm MDM femoral head. Final MDM femoral head component was then opened and the trunnion was dried and this was impacted with excellent fixation and the hip was subsequently reduced.? We measured our final leg lengths which were appropriate patient had excellent stability in all ranges of motion.? This point time a robotic pins and checkpoints were removed.? I remove the femur checkpoint as well as my pelvic array and iliac wing pins.? Appropriate counts were then made.? This point time thoroughly irrigated the wound bed with pulse lavage.? Vancomycin powder was then sprinkled into the wound bed.? I then performed a standard capsular and external rotator repair utilizing #5 Ethibond and this was tied and repaired through bone tunnels hip, sciatic nerve was protected throughout this portion of the case. Was then kept in abduction external rotation and subsequently closed the fascial layer with Ethibond suture as well as running strata fix suture.? I then closed the deep subcutaneous layer as well as superficial subcutaneous layer with running strata fix suture as well as 3-0 strata fix for skin.? Matt glue dressing was then placed over the skin.? I then irrigated the pelvic array pin site.? There is were then closed with interrupted 0, 2-0 Vicryl suture and Monocryl as well as Prineo glue for the skin.? Incisions were then covered with cory and Silverlon dressing.? Patient was awakened from anesthesia and taken to PACU in stable condition Disposition: Patient taken to PACU in stable condition.? Patient will receive appropriate discharge instructions as well as DVT prophylaxis and pain medication.? Patient will be admitted to the floor for observation should be evaluated by the internal medicine team for medical management.? Patient received appropriate DVT prophylaxis as well as pain medication PT/OT weightbearing as tolerated Right lower extremity with?posterior?hip precautions, Postoperative Abx and TXA.? We will follow-up with patient in the office in 2 weeks.? Patient understands agrees with current plan.? All questions answered.
--- NOTE | 2025-01-29 15:33 | XR_ITS ---
WS: [id number] XR hip RT 2-3V wo/w pel* [id number] REASON FOR EXAM: post op ABHINAV FINDINGS: Total right hip arthroplasty. Components of the arthroplasty are intact and in proper position and alignment. XR/XR hip RT 2-3V wo/w pel* [id number] IMPRESSION: Total right hip arthroplasty without abnormality.
--- NOTE | 2025-01-29 16:03 | PC.NURSE ---
1554 - Accepted onto floor into room 267 with APOLONIA Hopson charge - pt in no distress upon this nurse exiting care - BP 111/67 - pulse 46 - 100% temp 97.1
--- NOTE | 2025-01-29 16:04 | PM.CONSULT ---
Providers/Reason For Consult Consulting Physician/Specialty*: Orthopedic service Reason for Consult*: Medical management Attending Physician: Ady Mcmillan DO Primary Care Provider: CARITO Bourgeois History of Present Illness History of Present Illness Abena Galan is a 49 year old female hypertension, anxiety disorder, obesity, history of HALINA on CPAP, migraines, who presents [facility] for right total hip arthroplasty robotic assisted Jaden posterior approach. Currently patient is alert to person, place, not to time, she will follow commands, she is still under the effect of anesthetic, nursing staff have noticed that she is normotensive, she does have sinus bradycardia, has complaints of right hip pain Medications/Allergies Home Medications ?Medication ?Instructions ?Recorded ?Confirmed ?Last Taken ?Type gabapentin 800 mg tablet 800 mg PO TID@,,07/03/19 01/26/25 01/28/25 History (Neurontin) omeprazole 40 mg capsule,delayed 40 mg PO DAILY@04/25/20 01/26/25 01/28/25 History release furosemide 20 mg tablet (Lasix) 40 mg (2 x 20 mg) PO DAILY@ #0 04/26/20 01/26/25 01/26/25 Rx tabs albuterol sulfate 90 mcg/actuation 2 puff inhalation Q6H PRN 02/19/22 01/26/25 06/17/22 History aerosol inhaler Shortness Of Breath Or Wheezing ascorbic acid (vitamin C) 500 mg 500 mg PO DAILY 02/19/22 01/26/25 01/26/25 History capsule,extended release (Vitamin C) cyanocobalamin (vitamin B-12) 100 100 mcg PO DAILY 02/19/22 01/26/25 01/26/25 History mcg tablet (Vitamin B-12) lisinopril 40 mg tablet 40 mg PO DAILY 02/19/22 01/26/25 01/28/25 History multivitamin-iron 27 mg-folic acid 1 tab PO DAILY 02/19/22 01/26/25 01/26/25 History 400 mcg-calcium and minerals tablet oxycodone-acetaminophen 7.5 mg-325 1 tab PO Q8H PRN pain 7 days #21 07/02/22 01/26/25 01/29/25 Rx mg tablet (Percocet) tabs amlodipine 5 mg tablet 10 mg PO DAILY 04/14/23 01/26/25 01/28/25 History carvedilol 6.25 mg tablet (Coreg) 6.25 mg PO BID #60 tabs 04/14/23 01/26/25 01/29/25 Rx meloxicam 15 mg tablet 15 mg PO DAILY #30 tabs 03/28/24 01/26/25 01/19/25 Rx Allergies Allergy/AdvReac Type Severity Reaction Status Date / Time erythromycin base Allergy ALGY-Hives Verified 01/17/25 14:05 ketorolac (From Toradol) Allergy ADR-Itching Verified 01/17/25 14:05 codeine AdvReac ADR-Itching Verified 01/17/25 14:05 Current Medications Generic Name Dose Route Start Last Admin Trade Name Freq PRN Reason Stop Dose Admin Sodium Chloride 1,000 mls @ 30 mls/hr 01/29/25 10:15 01/29/25 10:33 Sodium Chloride 0.9% IV 01/30/25 10:14 30 mls/hr .Q24H FAHAD Administration Midazolam HCl 2 mg 01/29/25 10:02 01/29/25 11:14 Midazolam 1 Mg/Ml Inj 2 Ml IVP 2 mg Q5M PRN Administration Preop Anxiety PFSH Acute PFSH: Medical History PTSD (post-traumatic stress disorder) Migraine headache Morbid obesity Generalized anxiety disorder Bipolar disorder, current episode depressed, moderate Bipolar disorder Hypertension GERD (gastroesophageal reflux disease) Sleep apnea Surgical History History of cholecystectomy in 2012 History of hysterectomy 2012, done due to endometriosis History of colonoscopy History of esophagogastroduodenoscopy (EGD) Family History Mother Anesthesia complication Denies family history of Bleeding disorder Social History Smoking and tobacco/nicotine status: never used tobacco/nicotine Alcohol intake: former Substance/Drug Use: never Lives independently: Yes Household members: children Current occupational status: disabled Vitals/I&O/Wt Last Vital Signs Temp 97.6 F 01/29/25 15:44 Pulse 47 L 01/29/25 15:44 Resp 18 01/29/25 15:44 BP 114/70 01/29/25 15:44 Pulse Ox 100 01/29/25 15:44 O2 Del Method Room Air 01/29/25 15:44 01/29/25 01/29/25 01/29/25 06:59 14:59 22:59 Intake Total 150 / 150 1050 / 1200 Output Total 375 / 375 Balance 150 / 150 675 / 825 Weight last 48 hrs Weight 99.337 kg Physical Exam Const: COMMON NORMALS: no acute distress ORIENTATION/CONSCIOUSNESS: Yes awake, Yes oriented to person and Yes oriented to place; not oriented to time Eye: COMMON NORMALS: Equal, round and reactive pupils present PUPIL: Yes Equal, round and reactive pupils present Resp: COMMON NORMALS: normal respiratory effort, No retractions, No use of accessory muscles and clear to auscultation bilaterally AUSCULTATION: clear to auscultation bilaterally Cardio: COMMON NORMALS: regular rate, regular rhythm, S1 normal heart sound present and S2 normal heart sound present RATE: regular rate RHYTHM: regular rhythm HEART SOUNDS: S1 normal heart sound present and S2 normal heart sound present GI: COMMON NORMALS: Normal to inspection, nondistended, normoactive bowel sounds present and non-tender Extremity: COMMON NORMALS: no pedal edema Neuro: SENSORIUM/ORIENTATION: Yes oriented to person, Yes oriented to place and No oriented to time Psych: COMMON NORMALS: mental status grossly normal Urinary Catheter Management: Gale: Cath Placed During This Visit: yes Urinary Catheter Date of Insertion: 01/29/25 Urinary Catheter Time of Insertion: 12:50 Data 01/29/25 10:30 01/29/25 10:30 A&P Assessment and plan 1. Hypertension: 2. CHF (congestive heart failure), NYHA class III: 3. Bradycardia: 4. Degenerative joint disease of right hip: Plan: Right hip degenerative joint disease - Status post right total hip arthroplasty Plan - Pain control, anticoagulation as per orthopedic team - PT OT Bradycardia - Will hold Coreg - Telemetry monitoring Hypertension - Continue lisinopril, Norvasc Hemoglobin A1c 6.7, type 2 diabetes - Check A1c - Insulin sliding scale Full code Eliquis for DVT prophylaxis PDMP PDMP Reviewed: Not Reviewed Consult Attestations Medical Necessity Statement: Patient requires hospitalization for right hip total arthroplasty Diagnoses Hypertension I10 CHF (congestive heart failure), NYHA class III I50.9 Bradycardia R00.1 Degenerative joint disease of right hip M16.11
[2025-01-29] MEDS: HYDROmorphone 0.5 MG/0.5 ML INJ IVP ×2 (16:54→21:32)
[2025-01-29] MEDS: oxyCODONE 5 mg IR Tab/Cap PO ×2 (16:54→21:36)
[2025-01-29] MEDS: chlorhexidine gluconate 0.12% Btl 473 mL 30 ML MUCOUS MEM (17:01)
[2025-01-29] MEDS: sennosides-docusate Tablet 2 TAB PO (17:01)
[2025-01-29] MEDS: calcium carb-vit d 600mg/400unit 1 Tablet 1 EACH PO (17:01)
[2025-01-29] MEDS: mupirocin oint 22 gm 1 APPLIC NASAL (17:02)
[2025-01-29] MEDS: ondansetron 2 mg/ML SDV 2 mL 4 MG IVP (19:53)
[2025-01-29] MEDS: tranexamic acid 1,000 MG/100 ML PREMIX 600 MG IV (22:27)
[2025-01-30] VITALS (9 sets, daily range): BP systolic 108–134; BP diastolic 63–92; PULSE 64–78; RESP 16–17; TEMP 36.9–37.7; O2SAT 94–96
[2025-01-30] MEDS: HYDROmorphone 0.5 MG/0.5 ML INJ IVP ×4 (01:35→17:56)
[2025-01-30] MEDS: oxyCODONE 5 mg IR Tab/Cap PO ×4 (02:40→21:00)
[2025-01-30] MEDS: acetaminophen 1,000 MG/100 ML PIGGYBACK 400 MG IV ×2 (05:01→12:45)
[2025-01-30] MEDS: ceFAZolin 2,000 MG in sodium chloride 0.9% (plus) 50 ML 100 MG IV ×2 (05:02→12:44)
[2025-01-30 05:15] LABS: Hematocrit 33.3 % (36-47); Hemoglobin 10.10 g/dL (11.27-16.99); Mean Corpuscular HGB Conc 30.3 g/dL (30-55); Mean Corpuscular Hemoglobin 27.0 pg (27-33); Mean Corpuscular Volume 89.0 fl (85-98); Nucleated Red Blood Cells % 0 %; Platelet Count 268 10^3/cmm (157-399); Red Blood Count 3.74 10^6/uL (3.85-5.65); White Blood Count 8.94 10^3/uL (3.29-11.43)
[2025-01-30 05:45] LABS: Anion Gap 14.5 (5-19); Blood Urea Nitrogen 12 mg/dL (6-20); Calcium 8.3 mg/dL (8.5-10.5); Carbon Dioxide 26 mmol/L (22-29); Chloride 105 mmol/L (98-107); Creatinine Clr Calc Pharmacy 98.2892; Glucose 104 mg/dL (65-115); Osmolality Calculated 294 mOsm/kg (285-295); Potassium 3.5 mmol/L (3.5-5.1); Sodium 142 mmol/L (136-145)
[2025-01-30] MEDS: multivitamin therapeutic Tablet 1 TAB PO (09:35)
[2025-01-30] MEDS: sennosides-docusate Tablet 2 TAB PO ×2 (09:35→17:57)
[2025-01-30] MEDS: APIXABAN 2.5 MG TABLET PO ×2 (09:36→21:00)
[2025-01-30] MEDS: calcium carb-vit d 600mg/400unit 1 Tablet 1 EACH PO ×2 (09:36→17:57)
[2025-01-30] MEDS: ondansetron 2 mg/ML SDV 2 mL 4 MG IVP (09:37)
[2025-01-30] MEDS: chlorhexidine gluconate 0.12% Btl 473 mL 30 ML MUCOUS MEM ×4 (09:40→21:01)
[2025-01-30] MEDS: mupirocin oint 22 gm 1 APPLIC NASAL ×2 (09:41→17:57)
--- NOTE | 2025-01-30 10:07 | PC.CHAP ---
Pastoral Care Encounter/Spiritual Assessment Type of Contact [] Declined orientor visit [] Patient/Family/Request visit [] Outpatient visit [] Follow-up visit [] Physician referral [] Code/Alert [] Routine visit [] Staff referral [] Actively dying [] Patient sleeping [] Family support [] [] Out of room [] Palliative care [] [x] Receiving care in room [] Pre-surgical visit [] Trauma [] Long length of stay [] ICU visit [] Other: Relational/Emotional Strength [] Patient feels connected with others/family/visitors/staff [] Distress [] Loneliness/isolation [] Abandonment Spirituality of Patient [] Person of Pippa [] Attends Adventism of their Pippa [] Believes in Prayer [] Reads Bible or Lutheran materials [] There are Spiritual issues to be addressed Balance Clerk Interventions [] Prayer [] Active listening [] Non-anxious presence [] Spiritual/emotional support [] Crisis/trauma care [] Spiritual counseling [] Bereavement support [] Provided bereavement packet [] Provided Bible/devotional materials [] Provided toy/stuffed animal, coloring book to patient or family member [] Provided Communion [] Anointing/[place] [] Salvation [] Completed spiritual assessment [] Other: Impact on Illness or Injury [] Angry [] Fearful [] Anxious [] Often cries [] Exhaustion [] Unable to work [] Unable to attend sikh [] Unable to walk/stand [] Unable to read [] Unable to drive [] Unable to eat/drink [] Unable to sleep [] Unable to be with family [] Patient intubated [] Other: Summary Time spent with patient
--- NOTE | 2025-01-30 12:10 | P.PN_ITS ---
Subjective 2 Subjective: Patient seen and examined today. She currently ate her lunch but she is having significant bouts of nausea she has been slow to progress and mobilized with therapy having issues with pain control postoperatively. Vitals/I&O/Wt Last Vital Signs Temp 99.8 F H 01/30/25 20:00 Pulse 69 01/30/25 20:00 Resp 17 01/30/25 21:00 BP 134/78 01/30/25 20:00 Pulse Ox 94 01/30/25 20:00 O2 Del Method Room Air 01/30/25 20:00 01/30/25 01/30/25 01/31/25 14:59 22:59 06:59 Intake Total 360 / 360 1570 / 1930 Balance 360 / 360 1570 / 1930 Weight last 48 hrs Weight 227 lb 9 oz Weight 227 lb Weight 219 lb Physical Exam 2 Narrative: Right hip examination: Charlotte dressing on in place with good seal, dressing on in place, clean dry and intact. No evidence of saturation. Patient has normal postoperative swelling and tenderness to palpation to the hip. Compartments are soft compressible,'s calf soft and nontender. Sensations intact to light touch distally. Distal pulses are palpable. Patient is able to wiggle toes as well as plantarflex and dorsiflex ankle. Patient is able to tolerate gentle hip range of motion no tenderness palpation distally at the knee or ankle/foot Urinary Catheter Management: Gale: Cath Placed During This Visit: yes, but has since been removed by the nurse Reason for Continuing Indwelling Catheter: Required Immobilization for Trauma or Surgery or Anesthesia Urinary Catheter Date of Insertion: 01/29/25 Urinary Catheter Time of Insertion: 12:50 Date Urinary Catheter Removed: 01/30/25 Time Urinary Catheter Discontinued: 06:26 Data 01/30/25 04:29 01/30/25 04:29 Xray Ortho: Radiologist's impression: Patient: Abena Galan Unit #: [id number] : 1975 Age/Sex: 49 / F ADM Date: 01/29/25 Loc: [facility] Room/Bed: [facility] Attending Dr: Ady Mcmillan DO Ordering Provider/Ordering MD: Ady Mcmillan Date of Service: 01/29/25 Procedure(s): XR hip RT 2-3V wo/w pel* [id number] Accession Number(s): [id number] Report Number: [id number] WS: [id number] XR hip RT 2-3V wo/w pel* [id number] REASON FOR EXAM: post op ABHINAV FINDINGS: Total right hip arthroplasty. Components of the arthroplasty are intact and in proper position and alignment. XR/XR hip RT 2-3V wo/w pel* [id number] IMPRESSION: Total right hip arthroplasty without abnormality. A&P Assessment and plan 1. Status post total replacement of hip: Plan: Postop day 1?right total hip arthroplasty?Jaden robotic assisted posterior approach Weight-bear as tolerated right lower extremity Resume diet Internal medicine on board for medical management appreciate their care and assistance X-rays reviewed stable right total hip arthroplasty Pain control PT/OT Posterior hip precautions Maintain dressing and change as needed Antinausea control?add Phenergan as Jasmin is not working Case management for discharge planning planning for home health care at discharge DVT prophylaxis starting Eliquis today Labs reviewed atrial continue to follow Would recommend an additional night stay as patient's had issues with pain control as well as having significant nausea today we will observe for an additional night with working or more with therapy and working on her nausea and pain with plan of hopefully discharge tomorrow. Patient understands and agrees with care plan. All questions answered. Orthopedics will see tomorrow. PDMP PDMP Reviewed: Not Reviewed Attestations 2 Medical Necessity Statement*: Ongoing care status post right total hip arthroplasty patient having significant nausea and issues with pain control as well as would benefit from additional work with therapy for additional night stay Coding Level of Care Code Acute Code for Chg Fwd Diagnoses Status post total replacement of hip Z96.649 Time Spent (min) 15
[2025-01-30] MEDS: promethazine 25 mg/mL SDV 1 mL IM (12:42)
--- NOTE | 2025-01-30 14:18 | P.PN_ITS ---
Subjective 2 Subjective: Patient was seen this morning, alert oriented x 3, follow commands, does complain of right hip pain, no fevers, no chills, no cough Vitals/I&O/Wt Last Vital Signs Temp 98.5 F 01/30/25 12:00 Pulse 73 01/30/25 12:00 Resp 16 01/30/25 12:43 BP 116/66 01/30/25 12:00 Pulse Ox 96 01/30/25 12:43 O2 Del Method Room Air 01/30/25 12:00 01/29/25 01/30/25 01/30/25 22:59 06:59 14:59 Intake Total 1440 / 1590 2250 / 3840 360 / 360 Output Total 375 / 375 1075 / 1450 Balance 1065 / 1215 1175 / 2390 360 / 360 Weight last 48 hrs Weight 103.221 kg Weight 102.965 kg Weight 99.337 kg Physical Exam 2 Const: COMMON NORMALS: no acute distress and patient oriented x3 Resp: COMMON NORMALS: normal respiratory effort, No retractions, No use of accessory muscles and clear to auscultation bilaterally AUSCULTATION: clear to auscultation bilaterally Cardio: COMMON NORMALS: regular rate, regular rhythm, S1 normal heart sound present and S2 normal heart sound present RATE: regular rate RHYTHM: r egular rhythm HEART SOUNDS: S1 normal heart sound present and S2 normal heart sound present GI: COMMON NORMALS: Normal to inspection, nondistended, normoactive bowel sounds present and non-tender Extremity: COMMON NORMALS: no pedal edema Neuro: COMMON NORMALS: patient oriented x3 Psych: COMMON NORMALS: mental status grossly normal Skin: NARRATIVE SKIN EXAM: Surgical site right hip looks clean and dry Urinary Catheter Management: Gale: Cath Placed During This Visit: yes, but has since been removed by the nurse Reason for Continuing Indwelling Catheter: Required Immobilization for Trauma or Surgery or Anesthesia Urinary Catheter Date of Insertion: 01/29/25 Urinary Catheter Time of Insertion: 12:50 Date Urinary Catheter Removed: 01/30/25 Time Urinary Catheter Discontinued: 06:26 Data 01/30/25 04:29 01/30/25 04:29 A&P Assessment and plan 1. Hypertension: 2. CHF (congestive heart failure), NYHA class III: 3. Bradycardia: 4. Degenerative joint disease of right hip: Plan: Right hip degenerative joint disease - Status post right total hip arthroplasty Plan - Pain control, anticoagulation as per orthopedic team - PT OT Acute on chronic back pain - Reports a chronic history of back pain, for which she follows up with pain management, no recent falls - Pain control as above Bradycardia - Will hold Coreg - Telemetry monitoring Hypertension - Continue lisinopril, Norvasc Hemoglobin A1c 6.7, type 2 diabetes - Check A1c - Insulin sliding scale Full code Eliquis for DVT prophylaxis PDMP PDMP Reviewed: Not Reviewed Attestations 2 Medical Necessity Statement*: Patient requires hospitalization for right hip surgery, Diagnoses Hypertension I10 CHF (congestive heart failure), NYHA class III I50.9 Bradycardia R00.1 Degenerative joint disease of right hip M16.11
[2025-01-31] VITALS (10 sets, daily range): BP systolic 121–175; BP diastolic 64–125; PULSE 75–101; RESP 15–20; TEMP 37.4–38.4; O2SAT 92–97
[2025-01-31] MEDS: oxyCODONE 5 mg IR Tab/Cap PO ×4 (02:38→19:45)
[2025-01-31 05:13] LABS: Hematocrit 33.1 % (36-47); Hemoglobin 9.90 g/dL (11.27-16.99); Mean Corpuscular HGB Conc 29.9 g/dL (30-55); Mean Corpuscular Hemoglobin 26.8 pg (27-33); Mean Corpuscular Volume 89.7 fl (85-98); Nucleated Red Blood Cells % 0 %; Platelet Count 248 10^3/cmm (157-399); Red Blood Count 3.69 10^6/uL (3.85-5.65); White Blood Count 11.73 10^3/uL (3.29-11.43)
[2025-01-31 05:36] LABS: Anion Gap 14.1 (5-19); Blood Urea Nitrogen 11 mg/dL (6-20); Calcium 8.5 mg/dL (8.5-10.5); Carbon Dioxide 27 mmol/L (22-29); Chloride 105 mmol/L (98-107); Creatinine Clr Calc Pharmacy 86.2117; Glucose 135 mg/dL (65-115); Osmolality Calculated 295 mOsm/kg (285-295); Potassium 4.1 mmol/L (3.5-5.1); Sodium 142 mmol/L (136-145)
[2025-01-31] MEDS: HYDROmorphone 0.5 MG/0.5 ML INJ IVP (06:42)
[2025-01-31] MEDS: calcium carb-vit d 600mg/400unit 1 Tablet 1 EACH PO ×2 (08:12→17:40)
[2025-01-31] MEDS: multivitamin therapeutic Tablet 1 TAB PO (08:13)
[2025-01-31] MEDS: mupirocin oint 22 gm 1 APPLIC NASAL ×2 (08:14→17:41)
[2025-01-31] MEDS: sennosides-docusate Tablet 2 TAB PO ×2 (08:14→17:40)
[2025-01-31] MEDS: chlorhexidine gluconate 0.12% Btl 473 mL 30 ML MUCOUS MEM ×4 (08:14→20:31)
[2025-01-31] MEDS: APIXABAN 2.5 MG TABLET PO ×2 (08:17→20:31)
--- NOTE | 2025-01-31 08:31 | XR_ITS ---
WS: [id number] XR chest 1V portable [id number] REASON FOR EXAM: fever FINDINGS: The chest is unchanged compared to the previous examination of 04/24/2020. The heart and the mediastinum are within normal limits. No acute pulmonary parenchymal or pleural abnormality is identified. Mild degenerative spondylosis of the thoracic spine. XR/XR chest 1V portable [id number] IMPRESSION: Stable chest without acute abnormality.
[2025-01-31 09:14] LABS: Procalcitonin 0.43 ng/mL (0-0.5)
--- NOTE | 2025-01-31 10:18 | PC.CHAP ---
Pastoral Care Encounter/Spiritual Assessment Type of Contact [] Declined computer repair instructor visit [] Patient/Family/Request visit [] Outpatient visit [] Follow-up visit [] Physician referral [] Code/Alert [x] Routine visit [] Staff referral [] Actively dying [] Patient sleeping [] Family support [] [] Out of room [] Palliative care [] [] Receiving care in room [] Pre-surgical visit [] Trauma [] Long length of stay [] ICU visit [] Other: Relational/Emotional Strength [x] Patient feels connected with others/family/visitors/staff [] Distress [] Loneliness/isolation [] Abandonment Spirituality of Patient [x] Person of Pippa [] Attends Judaism of their Pippa [x] Believes in Prayer [] Reads Bible or Yazdanism materials [] There are Spiritual issues to be addressed Provider Relations Coordinator Interventions [x] Prayer [x] Active listening [x] Non-anxious presence [x] Spiritual/emotional support [] Crisis/trauma care [] Spiritual counseling [] Bereavement support [] Provided bereavement packet [] Provided Bible/devotional materials [] Provided toy/stuffed animal, coloring book to patient or family member [] Provided Communion [] Anointing/[place] [] Salvation [x] Completed spiritual assessment [] Other: Impact on Illness or Injury [] Angry [] Fearful [] Anxious [] Often cries [] Exhaustion [] Unable to work [] Unable to attend zoroastrianism [] Unable to walk/stand [] Unable to read [] Unable to drive [] Unable to eat/drink [] Unable to sleep [] Unable to be with family [] Patient intubated [] Other: Summary Time spent with patient 5 min
[2025-01-31 10:29] LABS: Glucose Urine UA 2+ (Normal); Nitrate Urine Negative (Negative); Specific Gravity, Urine 1.017 (1.005-1.030)
[2025-01-31 10:34] LABS: Add Urine Microscopic? YES
--- NOTE | 2025-01-31 10:41 | PC.NURSE ---
Verbal order to discontinue Dilaudid per Dr. Mcmillan
[2025-01-31 10:43] LABS: UA Slide Review UA Slide Review Perf
--- NOTE | 2025-01-31 11:39 | USCV_ITS ---
Abena Galan Age: 49 Gender: F : 1975 Exam Date: 01/31/2025 14:06 Ordering Phys: Keith Addison MD Technologist: JOANNA Exam Location: [facility] [place] Indication: R/O DVT HISTORY: Lower extremity swelling. PROCEDURES: Venous duplex imaging was performed in bilateral lower extremities. The following venous structures were evaluated: common femoral vein, profunda vein, proximal portion of the greater saphenous vein, superficial femoral vein, and the popliteal vein. In addition, the posterior tibial and peroneal trunk were evaluated. FINDINGS: Normal 2-D Doppler and augmentation and compressibility throughout the lower extremity venous structures. Additional imaging through the proximal calf veins also reveals no thrombus. Limited evaluation of the greater saphenous vein is patent with no thrombus. CONCLUSIONS No DVT bilateral lower extremities. Dr. Karina Ritter DO (Electronically Signed) Final Date: 02 February 2025 08:17 S
--- NOTE | 2025-01-31 12:10 | P.PN_ITS ---
Subjective 2 Subjective: Patient seen and examined today. She has had some low-grade fevers. At this point in time working diagnosis is likely atelectasis internal medicine is on board and working up her incision is clean dry and intact she is actually up and mobilizing today much better we have weaned her off of her Dilaudid she understands the importance of getting off of less narcotics just due to the respiratory depression from this. This point in time she is progressing appropriately with therapy but recommended by internal medicine to stay an additional night due to the fever. Current respiratory panel is in place chest x-ray looks to be good with no acute pathology. Her UA does not appear to be infectious. She will already be on some prophylactic antibiotics today as well will discharge home on some prophylactically as well. Her dressing and right hip look clean and dry and intact no concerning findings clinically. She is on Eliquis for blood thinner. Vitals/I&O/Wt Last Vital Signs Temp 101.1 F H 01/31/25 11:28 Pulse 77 01/31/25 11:28 Resp 16 01/31/25 11:28 BP 134/81 01/31/25 11:28 Pulse Ox 95 01/31/25 11:28 O2 Del Method Room Air 01/31/25 11:28 01/30/25 01/31/25 01/31/25 22:59 06:59 14:59 Intake Total 1570 / 1930 300 / 2230 240 / 240 Output Total 300 / 300 Balance 1570 / 1930 300 / 2230 -60 / -60 Weight last 48 hrs Weight 221 lb 9.6 oz Weight 227 lb 9 oz Weight 227 lb Physical Exam 2 Narrative: Right hip examination: Charlotte dressing on in place with good seal, dressing on in place, clean dry and intact. No evidence of saturation. No signs of infection, patient has normal postoperative swelling and tenderness to palpation to the hip. Compartments are soft compressible,'s calf soft and nontender. Sensations intact to light touch distally. Distal pulses are palpable. Patient is able to wiggle toes as well as plantarflex and dorsiflex ankle. Patient is able to tolerate gentle hip range of motion no tenderness palpation distally at the knee or ankle/foot Urinary Catheter Management: Gale: Cath Placed During This Visit: yes, but has since been removed by the nurse Reason for Continuing Indwelling Catheter: Required Immobilization for Trauma or Surgery or Anesthesia Urinary Catheter Date of Insertion: 01/29/25 Urinary Catheter Time of Insertion: 12:50 Date Urinary Catheter Removed: 01/30/25 Time Urinary Catheter Discontinued: 06:26 Data 01/31/25 04:48 01/31/25 04:48 A&P Assessment and plan 1. Status post total replacement of hip: Plan: Postop day 2?right total hip arthroplasty?Jaden robotic assisted posterior approach Weight-bear as tolerated right lower extremity Resume diet Internal medicine on board for medical management appreciate their care and assistance X-rays reviewed stable right total hip arthroplasty Pain control PT/OT Posterior hip precautions Maintain dressing and change as needed Antinausea control Case management for discharge planning planning for home health care at discharge DVT prophylaxis starting Eliquis today Labs reviewed Patient had fever overnight and around lunchtime today currently being worked up by internal medicine appreciate their assistance in management at this point time suspect atelectasis. Given patient have a fever we will continue to be worked up today will need additional night stay. This point in time I feel she has been on pretty excessive pain medication and had been fairly immobile. She has been on anticoagulants for DVT prophylaxis already. At this point in time clinical examination of the right hip looks normal for postoperative right total hip arthroplasty no acute signs of any bit of infection and no drainage at this point in time I suspect this is more due to atelectasis with a combination of her exposure with anesthesia decreased mobilization as well as narcotic pain use or discontinuing the Dilaudid today she understands the importance of this to help push her to continue moving as well as encourage incentive spirometry internal medicine will continue to monitor she will be on a prophylactic antibiotic per internal medicine today as well as she we already were planning on discharge with a p.o. prophylactic antibiotic after surgery as well. At this point in time she understands importance of mobilizing and working with therapy I do feel as though would be best suited for the patient's safety to stay an additional night stay and will follow-up with her tomorrow my goals would be that she should be able to discharge tomorrow per internal medicine as long as she remains afebrile patient understands and agrees with current plan. All questions answered. PDMP PDMP Reviewed: Not Reviewed Attestations 2 Medical Necessity Statement*: Ongoing care status post right total hip arthroplasty patient had postoperative fever currently being worked up by internal medicine Coding Level of Care Code Acute Code for Chg Fwd Diagnoses Status post total replacement of hip Z96.649 Time Spent (min) 20
[2025-01-31 12:18] LABS: Coronavirus 229E,HKU1,NL63,OC4 Not Detected (NOT DETECT); Parainfluenza Virus Type 1 Not Detected (NOT DETECT); Parainfluenza Virus Type 2 Not Detected (NOT DETECT); Parainfluenza Virus Type 3 Not Detected (NOT DETECT); Parainfluenza Virus Type 4 Not Detected (NOT DETECT); SARS-COV-2 Not Detected (NOT DETECT)
[2025-01-31] MEDS: cefTRIAXone 1,000 mg SDV 1000 MG IVP (12:34)
[2025-01-31] MEDS: promethazine 25 mg/mL SDV 1 mL IM (12:36)
[2025-01-31 13:31] LABS: Estmated Average Glucose 126; Hemoglobin A1C 6.0 % (4.0-6.0)
--- NOTE | 2025-01-31 15:04 | P.PN_ITS ---
Subjective 2 Subjective: Patient was seen this morning, she did have a fever earlier this morning, denies any cough, no abdominal pain, no diarrhea, no dysuria, no hematuria, no lightheadedness, no dizziness, status post cholecystectomy, no lightheadedness Vitals/I&O/Wt Last Vital Signs Temp 101.1 F H 01/31/25 11:28 Pulse 77 01/31/25 11:28 Resp 16 01/31/25 11:28 BP 134/81 01/31/25 11:28 Pulse Ox 95 01/31/25 11:28 O2 Del Method Room Air 01/31/25 11:28 01/31/25 01/31/25 01/31/25 06:59 14:59 22:59 Intake Total 300 / 2230 240 / 240 Output Total 300 / 300 Balance 300 / 2230 -60 / -60 Weight last 48 hrs Weight 100.516 kg Weight 103.221 kg Weight 102.965 kg Physical Exam 2 Const: COMMON NORMALS: no acute distress and patient oriented x3 Resp: COMMON NORMALS: normal respiratory effort, No retractions, No use of accessory muscles and clear to auscultation bilaterally AUSCULTATION: clear to auscultation bilaterally Cardio: COMMON NORMALS: regular rate, regular rhythm, S1 normal heart sound present and S2 normal heart sound present RATE: regular rate RHYTHM: r egular rhythm HEART SOUNDS: S1 normal heart sound present and S2 normal heart sound present GI: COMMON NORMALS: Normal to inspection, nondistended, normoactive bowel sounds present and non-tender Extremity: COMMON NORMALS: no pedal edema Neuro: COMMON NORMALS: patient oriented x3 Psych: COMMON NORMALS: mental status grossly normal Urinary Catheter Management: Gale: Cath Placed During This Visit: yes, but has since been removed by the nurse Reason for Continuing Indwelling Catheter: Required Immobilization for Trauma or Surgery or Anesthesia Urinary Catheter Date of Insertion: 01/29/25 Urinary Catheter Time of Insertion: 12:50 Date Urinary Catheter Removed: 01/30/25 Time Urinary Catheter Discontinued: 06:26 Data 01/31/25 04:48 01/31/25 04:48 Micro: Microbiology 01/31/25 13:40 Blood Culture - Preliminary Blood SPECIMEN COLLECTED 01/31/25 13:38 Blood Culture - Preliminary Blood SPECIMEN COLLECTED A&P Assessment and plan 1. Hypertension: 2. CHF (congestive heart failure), NYHA class III: 3. Bradycardia: 4. Degenerative joint disease of right hip: 5. Postoperative fever: Plan: Postoperative fever - Urinalysis - Chest x-ray - Respiratory viral panel - Venous ultrasound - Incentive spirometer, flutter valve, ambulation Right hip degenerative joint disease - Status post right total hip arthroplasty Plan - Pain control, anticoagulation as per orthopedic team - PT OT Acute on chronic back pain - Reports a chronic history of back pain, for which she follows up with pain management, no recent falls - Pain control as above Bradycardia - Will hold Coreg - Telemetry monitoring Hypertension - Continue lisinopril, Norvasc Hemoglobin A1c 6.7, type 2 diabetes - Check A1c 6.0 - Insulin sliding scale Full code Eliquis for DVT prophylaxis PDMP PDMP Reviewed: Last Reviewed 01/31/25 11:39 by Keith Addison MD Attestations 2 Medical Necessity Statement*: Patient presents presents with postoperative fever Diagnoses Hypertension I10 CHF (congestive heart failure), NYHA class III I50.9 Bradycardia R00.1 Degenerative joint disease of right hip M16.11 Postoperative fever R50.82
[2025-01-31 15:41] LABS: Alanine Aminotransferase 30 U/L (0-33); Albumin Level 3.2 g/dL (3.5-5.2); Alkaline Phosphatase 176 U/L (35-105); Aspartate Amino Transferase 52 U/L (0-32); Globulin 2.7 g/dL (1.3-4.6); Lipase 7 U/L (13-60); Total Protein 5.9 g/dL (6.6-8.7)
--- NOTE | 2025-01-31 15:46 | CTR_ITS ---
PROCEDURE INFORMATION: Exam: CT Chest Without Contrast; Diagnostic Exam date and time: 01/31/2025 4:16 PM Age: 49 years old Clinical indication: Fever; Prior surgery; Surgery date: Post-operative (0-2 days); Surgery type: RT hip 01/29/2025, gastric bypass, hysterectomy; Additional info: Fever of unkown orgin TECHNIQUE: Imaging protocol: Diagnostic computed tomography of the chest without contrast. Radiation optimization: All CT scans at this facility use at least one of these dose optimization techniques: automated exposure control; mA and/or kV adjustment per patient size (includes targeted exams where dose is matched to clinical indication); or iterative reconstruction. COMPARISON: CR XR chest 1V portable [id number] 01/31/2025 8:54 AM RADIATION DOSE METRICS: Total DLP (mGy-cm): 1235.93 FINDINGS: Lungs: 6 mm left lower lobe nodule central calcification, unchanged. No infiltrates. Pleural spaces: Unremarkable. No pneumothorax. No pleural effusion. Heart: Unremarkable. No cardiomegaly. No pericardial effusion. Coronary arteries: No coronary artery calcifications. Lymph nodes: Unchanged calcified subcarinal node. No lymph node enlargement. Vasculature: Unremarkable. No aortic aneurysm. Bones/joints: No acute osseous abnormality. Soft tissues: Unremarkable. PROCEDURE INFORMATION: Exam: CT Abdomen And Pelvis Without Contrast Exam date and time: 01/31/2025 4:16 PM Age: 49 years old Clinical indication: Fever; Prior surgery; Surgery date: Post-operative (0-2 days); Surgery type: RT hip 01/29/2025, gastric bypass, hysterectomy; Additional info: Fever of unkown orgin TECHNIQUE: Imaging protocol: Computed tomography of the abdomen and pelvis without contrast. Radiation optimization: All CT scans at this facility use at least one of these dose optimization techniques: automated exposure control; mA and/or kV adjustment per patient size (includes targeted exams where dose is matched to clinical indication); or iterative reconstruction. COMPARISON: CT abdomen pelvis w con* [id number] 02/19/2022 3:58 PM RADIATION DOSE METRICS: Total DLP (mGy-cm): 1235.93 FINDINGS: Liver: The liver is normal. No mass. Gallbladder and biliary ducts: Post cholecystectomy. There is no evidence of biliary ductal dilation. Pancreas: The pancreas is normal. No mass. Spleen: The spleen is normal. Adrenal glands: The adrenal glands are normal. Kidneys and ureters: No renal mass or hydronephrosis. Stomach and bowel: There has been previous gastric and small bowel surgery. Normal bowel caliber. No pericolonic inflammatory changes. Appendix: Normal appendix. Intraperitoneal space: No significant peritoneal free fluid. No free peritoneal air. Vasculature: Aortic caliber is normal. Lymph nodes: 12 mm mesenteric node in the right lower quadrant. No other ernesto enlargement. Urinary bladder: Bubble of gas is present in the bladder, possibly due to recent instrumentation. Bladder mass is not identified. Reproductive: There has been a hysterectomy. No adnexal cysts or masses are identified. Bones/joints: Complete right hip prosthesis in place. No suspicious osseous lesions. Soft tissues: A 5 cm region of subcutaneous soft tissue density and gas bubbles lie lateral to the right gluteus yuriy. The gas bubbles track into the intermuscular space between the right gluteus yuriy and gluteus medius. Additional gas bubbles lie adjacent to the trochanters and along the lateral margins of the right upper thigh musculature and lower abdominal wall musculature. CT/[place] [id number] IMPRESSION: 1. Unchanged appearance to calcified subcarinal node and calcified left lower lobe nodule. 2. No acute disease identified. IMPRESSION: 1. Intramuscular and subcutaneous gas collections in the right hip region, compatible with recent right hip replacement. The incompletely imaged subcutaneous gas and fluid collection directly overlying the right hip could represent developing infection. 2. No other acute disease in the abdomen or pelvis.
[2025-02-01] VITALS (9 sets, daily range): BP systolic 96–130; BP diastolic 61–89; PULSE 84–92; RESP 15–16; TEMP 36.8–37.7; O2SAT 91–96; BMI 39.3
[2025-02-01] MEDS: oxyCODONE 5 mg IR Tab/Cap PO ×3 (01:37→13:29)
[2025-02-01 04:56] LABS: Hematocrit 30.6 % (36-47); Hemoglobin 9.20 g/dL (11.27-16.99); Mean Corpuscular HGB Conc 30.1 g/dL (30-55); Mean Corpuscular Hemoglobin 26.4 pg (27-33); Mean Corpuscular Volume 87.7 fl (85-98); Nucleated Red Blood Cells % 0 %; Platelet Count 240 10^3/cmm (157-399); Red Blood Count 3.49 10^6/uL (3.85-5.65); White Blood Count 10.79 10^3/uL (3.29-11.43)
[2025-02-01 05:13] LABS: Anion Gap 13.4 (5-19); Blood Urea Nitrogen 13 mg/dL (6-20); Calcium 8.1 mg/dL (8.5-10.5); Carbon Dioxide 27 mmol/L (22-29); Chloride 104 mmol/L (98-107); Creatinine Clr Calc Pharmacy 96.9882; Glucose 148 mg/dL (65-115); Osmolality Calculated 295 mOsm/kg (285-295); Potassium 3.4 mmol/L (3.5-5.1); Sodium 141 mmol/L (136-145)
[2025-02-01] MEDS: sennosides-docusate Tablet 2 TAB PO (08:31)
[2025-02-01] MEDS: multivitamin therapeutic Tablet 1 TAB PO (08:31)
[2025-02-01] MEDS: APIXABAN 2.5 MG TABLET PO (08:31)
[2025-02-01] MEDS: calcium carb-vit d 600mg/400unit 1 Tablet 1 EACH PO (08:31)
[2025-02-01] MEDS: promethazine 25 mg/mL SDV 1 mL IM (08:40)
[2025-02-01] MEDS: cefTRIAXone 1,000 mg SDV 1000 MG IVP (11:35)
--- NOTE | 2025-02-01 12:33 | P.PN_ITS ---
Subjective 2 Subjective: Patient was seen this morning, currently alert oriented x 3, following commands, denies any fevers, chills, no cough we discussed her fevers are likely from postoperative atelectasis, she needs to continue to be ambulatory, incentive spirometer use, I will send her on 5 days of oral antibiotics. Discussed her CT scan findings, the likely postoperative changes, on examination right hip surgical site looks clean and dry, no palpable abnormalities Vitals/I&O/Wt Last Vital Signs Temp 98.9 F 02/01/25 11:19 Pulse 87 02/01/25 11:19 Resp 15 02/01/25 11:19 BP 130/89 02/01/25 11:19 Pulse Ox 91 02/01/25 11:19 O2 Del Method Room Air 02/01/25 11:19 01/31/25 02/01/25 02/01/25 22:59 06:59 14:59 Intake Total 620 / 860 177 / 177 Output Total 500 / 800 200 / 1000 Balance 120 / 60 -200 / -140 177 / 177 Weight last 48 hrs Weight 103.873 kg Weight 100.516 kg Physical Exam 2 Const: COMMON NORMALS: no acute distress and patient oriented x3 Resp: COMMON NORMALS: normal respiratory effort, No retractions, No use of accessory muscles and clear to auscultation bilaterally AUSCULTATION: clear to auscultation bilaterally Cardio: COMMON NORMALS: regular rate, regular rhythm, S1 normal heart sound present and S2 normal heart sound present RATE: regular rate RHYTHM: r egular rhythm HEART SOUNDS: S1 normal heart sound present and S2 normal heart sound present GI: COMMON NORMALS: Normal to inspection, nondistended, normoactive bowel sounds present and non-tender Extremity: COMMON NORMALS: no pedal edema Neuro: COMMON NORMALS: patient oriented x3 Psych: COMMON NORMALS: mental status grossly normal Skin: NARRATIVE SKIN EXAM: Surgical site, right hip looks clean and dry Urinary Catheter Management: Gale: Cath Placed During This Visit: yes, but has since been removed by the nurse Reason for Continuing Indwelling Catheter: Required Immobilization for Trauma or Surgery or Anesthesia Urinary Catheter Date of Insertion: 01/29/25 Urinary Catheter Time of Insertion: 12:50 Date Urinary Catheter Removed: 01/30/25 Time Urinary Catheter Discontinued: 06:26 Data 02/01/25 04:05 02/01/25 04:05 Micro: Microbiology 01/31/25 13:40 Blood Culture - Preliminary Blood SPECIMEN COLLECTED 01/31/25 13:38 Blood Culture - Preliminary Blood SPECIMEN COLLECTED A&P Assessment and plan 1. Hypertension: 2. CHF (congestive heart failure), NYHA class III: 3. Bradycardia: 4. Degenerative joint disease of right hip: 5. Postoperative fever: Plan: Postoperative fever -Likely postoperative atelectasis - Urinalysis, within normal range - Chest x-ray, within normal range - Respiratory viral panel, within normal range - Venous ultrasound, negative - Incentive spirometer, flutter valve, ambulation - Continue to ambulatory, discharged on intermittent Patient has a subcarinal lymph node, and a calcified left lower lobe nodule, needs to follow-up with pulmonary Right hip degenerative joint disease - Status post right total hip arthroplasty Plan - Pain control, anticoagulation as per orthopedic team - PT OT Acute on chronic back pain - Reports a chronic history of back pain, for which she follows up with pain management, no recent falls - Pain control as above Bradycardia - Will hold Coreg on discharge, follow with primary care - Telemetry monitoring Hypertension - Continue lisinopril, Norvasc Hemoglobin A1c 6.7, type 2 diabetes - Check A1c 6.0 - Insulin sliding scale Full code Eliquis for DVT prophylaxis PDMP PDMP Reviewed: Last Reviewed 01/31/25 11:39 by Keith Addison MD Attestations 2 Medical Necessity Statement*: Patient will be discharged today Diagnoses Hypertension I10 CHF (congestive heart failure), NYHA class III I50.9 Bradycardia R00.1 Degenerative joint disease of right hip M16.11 Postoperative fever R50.82
--- NOTE | 2025-02-01 16:02 | PC.OT ---
Attempted skilled Occupational Therapy treatment. Pt denies all needs. Reviewed hip precautions with good understanding.
--- NOTE | 2025-02-01 16:17 | P.DS_ITS ---
Discharge Providers Date of Admission: 01/29/25 13:55 Date of Discharge: February 01, 2025 Attending Provider at Admission: Ady Mcmillan DO Attending Provider at Discharge: Ady Mcmillan DO Consults: Hospitalist - Dr Addison. Primary Care Provider: CARITO Bourgeois Diagnoses at Discharge Discharge Diagnosis 1. Status post total replacement of hip: 2. Essential hypertension: 3. CHF (congestive heart failure), NYHA class III: 4. Bradycardia: 5. Degenerative joint disease of right hip: 6. Postoperative fever: Reason for Visit Reason for Visit: M16.11 Brief History: Status post right total hip arthroplasty?Jaden robotic assisted Hospital Course Hospital Course Patient was brought to the hospital through the preoperative holding area with plan for right total hip arthroplasty for [right] hip dengerative joint disease. Once cleared by anesthesia for surgery subsequently was taken back to the operative suite underwent anesthesia per the anesthesia department and then underwent [right] total hip arthroplasty with Jaden robotic assistance posterior approach without any complications. Patient was then subsequently taken back to PACU in stable condition recovering well. Once recovered, patient was then subsequently admitted to the floor postoperatively. Internal medicine was consulted for medical management assistance. Patient weightbearing as tolerated to the right lower extremity, posterior hip precautions. PT/OT. Pain control. DVT prophylaxis. Postoperative antibiotics and TXA. dressing was change as needed. Internal medicine was on board and appreciate their medical management and assistance. Patient progressed slowly with physical therapy as well as had issues with pain control postoperatively. She did steadily improve and progress to get ready for discharge. She did have fever postoperatively which was worked up by hospitalist please refer to their daily progress notes for details. Patient likely secondary to increased narcotic use as well as atelectasis. She did recover and was fever free prior to discharge. Pt was determined on postoperative day [3 ] the patient was stable for discharge from orthopedic as w ell as internal medicine standpoint. Patient's labs were monitored daily. Patient will receive appropriate pain medication as well as DVT prophylaxis postoperatively. Appropriate discharge instructions as well. Patient was then discharged in stable condition. Patient will discharge home. Pt will follow-up with Orthopedics in the office in 2 weeks. Patient understands and agrees with current plan. All questions answered. Understands there is any issues or concerns and contact the office. Physical Exam Narrative: Right hip examination: Charlotte dressing on in place with good seal, dressing on in place, clean dry and intact. No evidence of saturation. No signs of infection, patient has normal postoperative swelling and tenderness to palpation to the hip. Compartments are soft compressible,'s calf soft and nontender. Sensations intact to light touch distally. Distal pulses are palpable. Patient is able to wiggle toes as well as plantarflex and dorsiflex ankle. Patient is able to tolerate gentle hip range of motion no tenderness palpation distally at the knee or ankle/foot Urinary Catheter Management: Gale: Cath Placed During This Visit: yes, but has since been removed by the nurse Reason for Continuing Indwelling Catheter: Required Immobilization for Trauma or Surgery or Anesthesia Urinary Catheter Date of Insertion: 01/29/25 Urinary Catheter Time of Insertion: 12:50 Date Urinary Catheter Removed: 01/30/25 Time Urinary Catheter Discontinued: 06:26 Discharge Data Studies Completed and Pending Completed Studies During Hospitalization Category Date Time Status CT chest abdomen pelvis [[place] [id number] Cat Scan 01/31/25 15:46 Completed ] Routine XR chest 1V portable [id number] Stat Exams 01/31/25 08:31 Completed XR hip RT 2-3V wo/w pel* [id number] Routine Exams 01/29/25 15:33 Completed Pending at discharge Category Date Time Status Blood Culture Stat Lab 01/31/25 13:40 [place] [id number] Stat Ultrasound 01/31/25 11:39 Taken Radiology Impressions Hip/Pelvis X-Ray 01/29/25 15:33 IMPRESSION: Total right hip arthroplasty without abnormality. Chest X-Ray 01/31/25 08:31 IMPRESSION: Stable chest without acute abnormality. Chest/Abdomen/Pelvis CT 01/31/25 15:46 IMPRESSION: 1. Unchanged appearance to calcified subcarinal node and calcified left lower lobe nodule. 2. No acute disease identified. IMPRESSION: 1. Intramuscular and subcutaneous gas collections in the right hip region, compatible with recent right hip replacement. The incompletely imaged subcutaneous gas and fluid collection directly overlying the right hip could represent developing infection. 2. No other acute disease in the abdomen or pelvis. Laboratory Results WBC 10.79 10^3/uL (3.29-11.43) 02/01/25 04:05 RBC 3.49 10^6/uL (3.85-5.65) L 02/01/25 04:05 Hgb 9.20 g/dL (11.27-16.99) L 02/01/25 04:05 Hct 30.6 % (36-47) L 02/01/25 04:05 MCV 87.7 fl (85-98) 02/01/25 04:05 MCH 26.4 pg (27-33) L 02/01/25 04:05 MCHC 30.1 g/dL (30-55) 02/01/25 04:05 RDW 14.7 % (12.1-15.1) 02/01/25 04:05 Plt Count 240 10^3/cmm (157-399) 02/01/25 04:05 MPV 11.8 fL (7.4-10.4) H 02/01/25 04:05 Neut % (Auto) 74.7 % 02/01/25 04:05 Lymph % (Auto) 15.3 % 02/01/25 04:05 [place] % (Auto) 8.6 % 02/01/25 04:05 Eos % (Auto) 0.7 % 02/01/25 04:05 Baso % (Auto) 0.2 % 02/01/25 04:05 Neut # (Auto) 8.06 10^3/uL (1.8-7.7) H 02/01/25 04:05 Lymph # (Auto) 1.7 10^3/uL (0.8-4.8) 02/01/25 04:05 [place] # (Auto) 0.9 10^3/uL (0.2-0.9) 02/01/25 04:05 Eos # (Auto) 0.1 10^3/uL (0.0-0.8) 02/01/25 04:05 Baso # (Auto) 0.0 10^3/uL (0.0-0.1) 02/01/25 04:05 Nucleated RBC % (auto) 0 % 02/01/25 04:05 Nucleated RBCs # 0.0 /100WBC 02/01/25 04:05 Sodium 141 mmol/L (136-145) 02/01/25 04:05 Potassium 3.4 mmol/L (3.5-5.1) L 02/01/25 04:05 Chloride 104 mmol/L (98-107) 02/01/25 04:05 Carbon Dioxide 27 mmol/L (22-29) 02/01/25 04:05 Anion Gap 13.4 (5-19) 02/01/25 04:05 BUN 13 mg/dL (6-20) 02/01/25 04:05 Creatinine 0.8 mg/dL (0.5-0.9) 02/01/25 04:05 GFR Calculation 75.9 mL/min (90-130) L 02/01/25 04:05 Glucose 148 mg/dL (65-115) H 02/01/25 04:05 POC Glucose 127 mg/dL (70-110) H 02/01/25 10:46 Estimat Average Glucose 126 01/29/25 10:30 Hemoglobin A1c 6.0 % (4.0-6.0) 01/29/25 10:30 Calculated Osmolality 295 mOsm/kg (285-295) 02/01/25 04:05 Calcium 8.1 mg/dL (8.5-10.5) L 02/01/25 04:05 Total Bilirubin 0.5 mg/dL (0.15-1.2) 01/31/25 04:48 Direct Bilirubin 0.20 mg/dL (0.00-0.30) 01/31/25 04:48 AST 52 U/L (0-32) H 01/31/25 04:48 ALT 30 U/L (0-33) 01/31/25 04:48 Alkaline Phosphatase 176 U/L (35-105) H 01/31/25 04:48 C-Reactive Protein 228.2 mg/L (0.0-4.9) H 01/31/25 04:48 Total Protein 5.9 g/dL (6.6-8.7) L 01/31/25 04:48 Albumin 3.2 g/dL (3.5-5.2) L 01/31/25 04:48 Globulin 2.7 g/dL (1.3-4.6) 01/31/25 04:48 Lipase 7 U/L (13-60) L 01/31/25 04:48 Procalcitonin 0.43 ng/mL (0-0.5) 01/31/25 04:48 Urine Color Yellow (Yellow) 01/31/25 10:12 Urine Appearance Clear (CLEAR) 01/31/25 10:12 Urine pH 5.5 (5-7) 01/31/25 10:12 Ur Specific [place] 1.017 (1.005-1.030) 01/31/25 10:12 Urine Protein Trace (Negative) A 01/31/25 10:12 Urine Glucose (UA) 2+ (Normal) H 01/31/25 10:12 Urine Ketones Trace (Negative) 01/31/25 10:12 Urine Blood Negative (Negative) 01/31/25 10:12 Urine Nitrate Negative (Negative) 01/31/25 10:12 Urine Bilirubin Negative (Negative) 01/31/25 10:12 Urine Urobilinogen 1.0 mg/dL (Negative) 01/31/25 10:12 Ur Leukocyte Esterase Negative (Negative) 01/31/25 10:12 Urine RBC 0-2 /hpf (0-2) 01/31/25 10:12 Urine WBC 6-10 /hpf (0-5) 01/31/25 10:12 Ur Squamous Epith Cells 11-20 /hpf (0-5) H 01/31/25 10:12 Amorphous Sediment Not Reportable 01/31/25 10:12 Urine Bacteria 1+ /hpf (NONE) H 01/31/25 10:12 Hyaline Casts 7.01 /lpf 01/31/25 10:12 Adenovirus (PCR) Not detected (NOT DETECT) 01/31/25 09:27 C. pneumoniae DNA (PCR) Not detected (NOT DETECT) 01/31/25 09:27 Coronavirus 229E (PCR) Not detected (NOT DETECT) 01/31/25 09:27 Human Metapneumovir PCR Not detected (NOT DETECT) 01/31/25 09:27 Influenza A (H1) PCR Not detected (NOT DETECT) 01/31/25 09:27 Influ A (H1/09) PCR Not detected (NOT DETECT) 01/31/25 09:27 Influenza A (H3) PCR Not detected (NOT DETECT) 01/31/25 09:27 Influenza Type A (PCR) Not detected (NOT DETECT) 01/31/25 09:27 Influenza Type B (PCR) Not detected (NOT DETECT) 01/31/25 09:27 M. pneumoniae (PCR) Not detected (NOT DETECT) 01/31/25 09:27 Parainfluenza 1 (PCR) Not detected (NOT DETECT) 01/31/25 09:27 Parainfluenza 2 (PCR) Not detected (NOT DETECT) 01/31/25 09:27 Parainfluenza 3 (PCR) Not detected (NOT DETECT) 01/31/25 09:27 Parainfluenza 4 (PCR) Not detected (NOT DETECT) 01/31/25 09:27 RSV Type A (PCR) Not detected (NOT DETECT) 01/31/25 09:27 RSV Type B (PCR) Not detected (NOT DETECT) 01/31/25 09:27 Entero/Rhino (PCR) Not detected (NOT DETECT) 01/31/25 09:27 SARS-CoV-2 (PCR) Not detected (NOT DETECT) 01/31/25 09:27 Blood Type A Positive 01/29/25 10:30 Rho(D) Type Rh positive 01/29/25 10:30 Antibody Screen Negative 01/29/25 10:30 Vitals Last Vital Signs Temp 99.9 F H 02/01/25 15:34 Pulse 92 02/01/25 15:34 Resp 15 02/01/25 15:34 BP 122/75 02/01/25 15:34 Pulse Ox 94 02/01/25 15:34 O2 Del Method Room Air 02/01/25 15:34 Discharge Plan Discharge Patient Disposition: Home Health Service Condition: Stable Prescriptions: New Eliquis 2.5 mg tablet 2.5 mg PO BID 35 Days Qty: 70 0RF cefadroxil 500 mg capsule 500 mg PO BID 7 Days Qty: 14 0RF oxycodone 5 mg tablet 10 mg PO Q6H PRN (Reason: pain) 7 Days Qty: 56 0RF Rx Instructions: 1 tab moderate pain 2 tabs severe pain Continued gabapentin [Neurontin] 800 mg tablet 800 mg PO TID@,15,21 amlodipine 5 mg tablet 10 mg PO DAILY omeprazole 40 mg Capsule,Delayed Release(Dr/Ec) 40 mg PO DAILY@09 furosemide [Lasix] 20 mg tablet 40 mg PO DAILY@09 Qty: 0 0RF cyanocobalamin (vitamin B-12) [Vitamin B-12] 100 mcg Tablet 100 mcg PO DAILY ascorbic acid (vitamin C) [Vitamin C] 500 mg Capsule, Extended Release 500 mg PO DAILY lisinopril 40 mg tablet 40 mg PO DAILY qulamlvg-mooi-VH-calcium-mins 27 mg iron-400 mcg Tablet 1 tab PO DAILY albuterol sulfate 90 mcg/actuation Hfa Aerosol Inhaler 2 puff INHALATION Q6H PRN (Reason: Shortness Of Breath Or Wheezing) Held carvedilol [Coreg] 6.25 mg tablet 6.25 mg PO BID Qty: 60 3RF Hold Instructions: Resume on 02/12/25. hold until you see primary care Rx Instructions: must administer with a meal/food Discontinued oxycodone-acetaminophen [Percocet] 7.5-325 mg tablet 1 tab PO Q8H PRN (Reason: pain) 7 Days Qty: 21 0RF meloxicam 15 mg tablet 15 mg PO DAILY Qty: 30 0RF Space Physicist OK for DC: Orthopedics Discharge Order = DC NOW: Discharge Order (Routine); Ordered 02/01/25 Ordered By: Ady Mcmillan Other Ambulatory Orders: DME: Walker (Order) Location: None Selected Ordered By: Ady Mcmillan Referrals: [facility] [Outside] [facility] [Outside] Chaya Villanueva MD [Physician, Pulmonology] - 1 month Referral Note: Pulmonary nodule We have notified your physician's clinic of the need for a follow-up appointment to be scheduled. If you have not heard from them within the next 2 business days, please call them directly. Ady Mcmillan DO [Physician, Orthopedics] - 02/13/25 2:45 pm Discharge Diet: Regular Discharge Activity: Limit activity as instructed Patient Instructions: Cefadroxil (By mouth) (Duricef), Oxycodone, Rapid Release (By mouth), Ondansetron (By mouth) (Zofran, Zofran ODT, Zuplenz), Apixaban (By mouth) (Eliquis), Acute Wound Care (DC), Precautions after Total Joint Replacement Surgery (DC), Total Hip Replacement (DC), CHF Stoplight, Opioid Safety, Post Anesthesia Care, Patient Portal & Leonor Instructions Activity Restrictions/Additional Instructions: Orthopedic discharge [place] Dressing--Keep dressing on and dry. After 3 days you can remove some of the dressing and shower. disconnect battery pack when showering. [place] dressing will stay on until follow up appt in 2 weeks. The battery pack for the dressing will at 5-7 days. Battery pack can be removed and discarded once batteries . Patient should keep dressings clean dry and intact Okay to shower over dressings if they do become wet these should be removed and new dressings applied Keep incisions clean dry and intact, leave Silverlon bandage dressings on in place for 7 days after that may rinse incisions with warm soapy water pat dry and redress with a dry dressing Weight-bear as tolerated to operative lower extremity Posterior hip precautions as instructed by physical therapy--posterior avoid hip flexion past 90 degrees, adduction, avoid internal rotation When sleeping or lying in bed in supine position use abduction pillow to prevent legs from crossing midline Take antibiotic as prescribed Ice as needed for pain and swelling Take pain medication as prescribed Take antinausea medication as needed May supplement for pain with Tylenol aomz-ibv-lhthynm as needed(1000 mg every 8 hours-do not exceed more than 3000mg in 24-hour period) Supplement with Citracal vitamin D for bone health and healing Pain medication can cause constipation. take vyma-szh-gxujhnp stool softeners and or MiraLAX. Take blood thinner as prescribed (Eliquis) Follow-up in the orthopedic office in 2 weeks Contact the office for any questions or concerns Encourage incentive spirometry -Continue to be ambulatory - Monitor for fevers or chills - If so go to the emergency room - Your CT scan did show a pulmonary nodule, and a subcarinal lymph node that is calcified, will need to follow-up with pulmonary Discharge Attestations Time Spent in Discharge Care*: less than 30 min Status at Discharge: Cognitive status at discharge: cognitively intact , Behavioral status at discharge: cooperative , Quality Metrics Clinical Quality Measures [ No reported AMI, CVA or VTE this stay] Coding Level of Care Code Acute Code for Chg Fwd Diagnoses Status post total replacement of hip Z96.649 Essential hypertension I10 Hypertension type: essential hypertension CHF (congestive heart failure), NYHA class III I50.9 Bradycardia R00.1 Degenerative joint disease of right hip M16.11 Postoperative fever R50.82 Time Spent (min) 25
== END 2025-02-01 18:13 | disposition home health service (06) ==
LOC: MEDSURG 13:56
PROVIDERS: Family Medicine; Physician Assistant; Admitting Provider Student in an Organized Health Care Education/Training Program; PCP Nurse Practitioner Family; Visit Provider Student in an Organized Health Care Education/Training Program
PROC: 8E0Y0CZ Robotic Assisted Procedure of Lower Extremity, Open Approach (ICD-10-PCS; CPT 27130; principal; 2025-01-29 13:00)
DX: M16.11 Unilateral primary osteoarthritis, right hip (principal); K21.9 Gastro-esophageal reflux disease without esophagitis; Z79.891 Long term (current) use of opiate analgesic; F43.10 Post-traumatic stress disorder, unspecified; E66.01 Morbid (severe) obesity due to excess calories; Z68.39 Body mass index [BMI] 39.0-39.9, adult; F41.9 Anxiety disorder, unspecified; F31.9 Bipolar disorder, unspecified; J45.909 Unspecified asthma, uncomplicated; I13.0 Hypertensive heart and chronic kidney disease with heart failure and stage 1 through stage 4 chronic kidney disease, or unspecified chronic kidney disease; N18.9 Chronic kidney disease, unspecified; I50.9 Heart failure, unspecified; G47.33 Obstructive sleep apnea (adult) (pediatric); Z99.89 Dependence on other enabling machines and devices; R00.1 Bradycardia, unspecified; R50.82 Postprocedural fever
CPT/HCPCS: 27130; 20985; 36415; 36416; 51702; 71045; 71250; 73502; 74176; 80048; 80076; 81001; 82962; 83036; 83690; 84145; 85025; 86140; 86850; 86900; 87040; 87486; 87581; 87633; 93970; 96372; 97110; 97116; 97161; 97165; 97535; A4216; C1713; C1776; G0378; J0131; J0690; J0696; J1171; J1815; J2250; J2405; J2550; J2704; J3010; J3373; J7030; J7120; J9999

== ENCOUNTER → 2025-02-13 14:57 | Outpatient (BNVA) | payer OTHER, MEDICAID, SELFPAY | PROVIDERS: PCP Nurse Practitioner Family; Visit Provider Physician Assistant | DX: Z98.890 Other specified postprocedural states (principal); Z96.649 Presence of unspecified artificial hip joint | CPT/HCPCS: 73502; 99024 ==

== ENCOUNTER → 2025-03-27 14:07 | Outpatient (BNVA) | payer MEDICARE, MEDICAID, SELFPAY | PROVIDERS: PCP Nurse Practitioner Family; Visit Provider Physician Assistant | DX: Z98.890 Other specified postprocedural states (principal); Z96.649 Presence of unspecified artificial hip joint | CPT/HCPCS: 73502; 99024 ==